=== PATIENT | male | born 1965 | race Caucasian/White ===

== ENCOUNTER 2019-07-16 10:40 | Outpatient (RCR) | payer SELFPAY | END 2019-07-17 00:01 | LOC: WOUND 10:40 | PROVIDERS: Family Provider Nurse Practitioner Family; Visit Provider Nurse Practitioner Family | DX: E11.621 Type 2 diabetes mellitus with foot ulcer (principal); L97.512 Non-pressure chronic ulcer of other part of right foot with fat layer exposed; I96 Gangrene, not elsewhere classified | CPT/HCPCS: 11042 ×2; 93922; G0463 ==

== ENCOUNTER 2019-08-15 13:39 | Outpatient (RCR) | payer SELFPAY | END 2019-08-17 23:59 | disposition home or self-care (01) | LOC: WOUND 13:39 | PROVIDERS: Family Provider Nurse Practitioner Family; PCP Nurse Practitioner Family; Visit Provider Nurse Practitioner Family | DX: E11.621 Type 2 diabetes mellitus with foot ulcer (principal); L97.502 Non-pressure chronic ulcer of other part of unspecified foot with fat layer exposed | CPT/HCPCS: 11042; 29581; 99214 ==

== ENCOUNTER 2019-08-20 08:04 | Outpatient (RCR) | payer SELFPAY | END 2019-09-15 23:59 | disposition home or self-care (01) | LOC: WOUND 08:04 | PROVIDERS: Family Provider Nurse Practitioner Family; PCP Nurse Practitioner Family; Visit Provider Nurse Practitioner Family | DX: Z09 Encounter for follow-up examination after completed treatment for conditions other than malignant neoplasm (principal) | CPT/HCPCS: 99212 ==

== ENCOUNTER 2019-08-20 08:51 | Outpatient (CLI) | payer SELFPAY ==
--- NOTE | 2019-08-20 08:56 | XRR_ITS ---
PROCEDURE INFORMATION: Exam: XR Right Foot Complete Exam date and time: 08/20/2019 9:08 AM Age: 54 years old Clinical indication: Pain and injury or trauma; Fall; Initial encounter; Blunt trauma; Foot; Injury date: 08/20/19; Injury details: Fell 1 week ago hurt right ankle; Prior surgery; Surgery date: 6+ months; Surgery type: 2nd toe amputation diabetic; Additional info: Pain/post trauma TECHNIQUE: Imaging protocol: XR Right foot. Views: 3 or more views. COMPARISON: CR Foot 3 views, RIGHT* [id number] 02/16/2019 7:01 AM FINDINGS: Bones/joints: Resection of the second ray at the level of the proximal metatarsal. Periosteal response adjacent to the proximal aspect of the proximal phalanx of the third ray and the distal aspect of the metatarsal likely reflective of prior trauma. dislocation at the talonavicular joint. fracture of the adjacent talus and navicular. Correlate. large spur formation at the insertion of the plantar aponeurosis. Soft tissues: Extensive soft tissue swelling of the foot particularly dorsally at the level of the metatarsals. XR/XR foot RT min 3V* [id number] IMPRESSION: 1. Dislocation at the talonavicular joint. fracture of the adjacent talus and navicular. Correlate. Consider CT if indicated. 2. Extensive soft tissue swelling of the foot particularly dorsally at the level of the metatarsals. 3. Large spur formation at the insertion of the plantar aponeurosis.
== END 2019-08-20 08:52 | disposition home or self-care (01) ==
PROVIDERS: Family Provider Nurse Practitioner Family; PCP Nurse Practitioner Family; Visit Provider Nurse Practitioner Family
DX: S92.101A Unspecified fracture of right talus, initial encounter for closed fracture (principal); S92.251A Displaced fracture of navicular [scaphoid] of right foot, initial encounter for closed fracture; X58.XXXA Exposure to other specified factors, initial encounter
CPT/HCPCS: 73630

== ENCOUNTER → 2019-08-28 14:41 | Outpatient (BNVA) | payer BC, SELFPAY | PROVIDERS: Family Provider Nurse Practitioner Family; PCP Nurse Practitioner Family; Referring Provider Nurse Practitioner Family; Visit Provider Podiatrist Foot & Ankle Surgery | DX: S92.331G Displaced fracture of third metatarsal bone, right foot, subsequent encounter for fracture with delayed healing (principal); X58.XXXD Exposure to other specified factors, subsequent encounter; Z89.421 Acquired absence of other right toe(s); M79.9 Soft tissue disorder, unspecified; M25.571 Pain in right ankle and joints of right foot; M19.071 Primary osteoarthritis, right ankle and foot; E11.8 Type 2 diabetes mellitus with unspecified complications | CPT/HCPCS: 73610; 73630 ==

== ENCOUNTER 2019-08-28 16:06 | Outpatient (CLI) | payer BC, SELFPAY | END 2019-08-28 16:07 | disposition home or self-care (01) | LOC: SPT 16:07 | PROVIDERS: Family Provider Nurse Practitioner Family; PCP Nurse Practitioner Family; Visit Provider Podiatrist Foot & Ankle Surgery | DX: Z46.89 Encounter for fitting and adjustment of other specified devices (principal) | CPT/HCPCS: L4361 ==

== ENCOUNTER 2019-08-30 13:58 | Outpatient (CLI) | payer BC, SELFPAY ==
--- NOTE | 2019-08-30 | CTR_ITS ---
[facility] Final Radiology Report Call: [phone] assistance Online chat: [email or web address] Name: NAWAF DE LA CRUZ Age: 54Years M Date: 08/30/2019 SSN: -- : 1965 Study: CT EXTREMITY LOWER WO Requesting Physician: Uzair Tao Images: [id number] Add?l Studies: Provided Clinical History: fracture Procedure Accession CTDI Vol (mGy) DLP (mGy-cm) CT EXTREMITY LOWER WO [id number] 305.84 PROCEDURE INFORMATION: Exam: CT Right Lower Extremity Without Contrast, Foot Exam date and time: 08/30/2019 3:24 PM Age: 54 years old Clinical indication: Pain; Foot; Right; Prior surgery; Surgery type: 2nd toe; Patient HX: Physician requested 3d reconstruction to evaluate for FX. R/O talonavicular joint dislocation; Additional info: Fracture TECHNIQUE: Imaging protocol: CT of the Right lower extremity without contrast was performed. Exam focused on the foot. 3D rendering: MIP and/or 3D reconstructed images were created by the technologist. Total DLP: 305.84 mGy-cm Radiation optimization: All CT scans at this facility use at least one of these dose optimization techniques: automated exposure control; mA and/or kV adjustment per patient size (includes targeted exams where dose is matched to clinical indication); or iterative reconstruction. COMPARISON: CR XR foot RT min 3V* [id number] 08/28/2019 3:12 PM FINDINGS: Bones/joints: The 2nd toe has been amputated at the level of the proximal metatarsal. Old healed fractures in the distal 3rd and 4th metatarsals and proximal 3rd phalanx. Degenerative changes and subchondral cyst formation in the head of the 4th metatarsal. Degenerative changes with subchondral cyst formation in the bases of the metatarsals and within the tarsal bones. Comminuted fracture of the navicular with multiple inferior displaced fragments. Soft tissues: Diffuse subcutaneous soft tissue edema of the right ankle and foot, greatest anteriorly. Soft tissue calcifications within the tendons distal muscles of the anterior and posterior ankle. There is an irregular fluid collection with a peripheral rind in calcifications anterior 0 lateral to the talus measuring 2.1 x 4.2 x 1.8 cm. IMPRESSION: 1. Extensive edema and cellulitis of the right ankle and foot. 2. 4.2 cm chronic fluid collection anterior lateral to the talus has a peripheral rind with calcifications. A chronic abscess is not excluded. 3. Comminution and fragmentation of the talus with displaced fragments. This is most likely related to a Charcot joint. Superimposed osteomyelitis cannot be excluded. 4. Severe degenerative changes of the tarsal bones and bases of the metatarsals. Superimposed infection cannot be excluded. 5. Old healed 3rd and 4th metatarsal and proximal 3rd phalanx fractures. Thank you for allowing us to participate in the care of your patient. Dictated and Authenticated by: Ross Coronado MD 08/30/2019 5:11 PM Central Time ([place] & [place]) [place]
--- NOTE | 2019-08-30 | CTR_ITS ---
[facility] Final Radiology Report Call: [phone] assistance Online chat: [email or web address] Name: NAWAF DE LA CRUZ Age: 54Years M Date: 08/30/2019 SSN: -- : 1965 Study: CT EXTREMITY LOWER WO Requesting Physician: Uzair Tao Images: [id number] Add?l Studies: Provided Clinical History: fracture Procedure Accession CTDI Vol (mGy) DLP (mGy-cm) CT EXTREMITY LOWER WO [id number] 305.84 PROCEDURE INFORMATION: Exam: CT Right Lower Extremity Without Contrast, Foot Exam date and time: 08/30/2019 3:24 PM Age: 54 years old Clinical indication: Pain; Foot; Right; Prior surgery; Surgery type: 2nd toe; Patient HX: Physician requested 3d reconstruction to evaluate for FX. R/O talonavicular joint dislocation; Additional info: Fracture TECHNIQUE: Imaging protocol: CT of the Right lower extremity without contrast was performed. Exam focused on the foot. 3D rendering: MIP and/or 3D reconstructed images were created by the technologist. Total DLP: 305.84 mGy-cm Radiation optimization: All CT scans at this facility use at least one of these dose optimization techniques: automated exposure control; mA and/or kV adjustment per patient size (includes targeted exams where dose is matched to clinical indication); or iterative reconstruction. COMPARISON: CR XR foot RT min 3V* [id number] 08/28/2019 3:12 PM FINDINGS: Bones/joints: The 2nd toe has been amputated at the level of the proximal metatarsal. Old healed fractures in the distal 3rd and 4th metatarsals and proximal 3rd phalanx. Degenerative changes and subchondral cyst formation in the head of the 4th metatarsal. Degenerative changes with subchondral cyst formation in the bases of the metatarsals and within the tarsal bones. Comminuted fracture of the navicular with multiple inferior displaced fragments. Soft tissues: Diffuse subcutaneous soft tissue edema of the right ankle and foot, greatest anteriorly. Soft tissue calcifications within the tendons distal muscles of the anterior and posterior ankle. There is an irregular fluid collection with a peripheral rind in calcifications anterior 0 lateral to the talus measuring 2.1 x 4.2 x 1.8 cm. IMPRESSION: 1. Extensive edema and cellulitis of the right ankle and foot. 2. 4.2 cm chronic fluid collection anterior lateral to the talus has a peripheral rind with calcifications. A chronic abscess is not excluded. 3. Comminution and fragmentation of the talus with displaced fragments. This is most likely related to a Charcot joint. Superimposed osteomyelitis cannot be excluded. 4. Severe degenerative changes of the tarsal bones and bases of the metatarsals. Superimposed infection cannot be excluded. 5. Old healed 3rd and 4th metatarsal and proximal 3rd phalanx fractures. Thank you for allowing us to participate in the care of your patient. Dictated and Authenticated by: Ross Coronado MD 08/30/2019 5:11 PM Central Time ([place] & [place]) [place]
== END 2019-08-30 13:59 | disposition home or self-care (01) ==
LOC: RAD 14:00
PROVIDERS: Family Provider Nurse Practitioner Family; PCP Nurse Practitioner Family; Visit Provider Podiatrist Foot & Ankle Surgery
DX: L03.115 Cellulitis of right lower limb (principal); M86.8X7 Other osteomyelitis, ankle and foot; M19.071 Primary osteoarthritis, right ankle and foot; M79.671 Pain in right foot; S92.331D Displaced fracture of third metatarsal bone, right foot, subsequent encounter for fracture with routine healing; S92.341D Displaced fracture of fourth metatarsal bone, right foot, subsequent encounter for fracture with routine healing; X58.XXXD Exposure to other specified factors, subsequent encounter
CPT/HCPCS: 73700; 76377

== ENCOUNTER 2019-08-31 07:48 | Day surgery (SDC) | payer BC, SELFPAY ==
[2019-08-30 14:08] VITALS: BMI 39.7
--- NOTE | 2019-08-31 | SCC_ITS ---
Procedure Done: Closed reduction of right talonavicular fracture dislocation 43 seconds of fluoroscopic guidance, for a cumulative dose of 1.28 mGy, was provided to Dr. Tao by the radiology department. C-arm images of the RIGHT foot were saved for the patient's permanent record. [facility]
--- NOTE | 2019-08-31 | XR_ITS ---
WS: [id number] Right foot, C-arm fluoroscopy view lateral, 08/31/2019 Clinical Data: OR PICS Comparison: Right foot x-ray, 08/28/2019 Findings: On the lateral view there is a mesh on the dorsal surface of the foot. This mass extends from the tib ia to the base of the metatarsals. The fragmentation of the talar neck and navicular is again seen. XR/XR foot RT 2V [id number] Impression: Application of surgical mesh and dressing to plantar surface of the foot.
[2019-08-31 08:06] VITALS: BP 129/81; PULSE 78; RESP 16; TEMP 36.7; O2SAT 96
[2019-08-31] MEDS: sodium chloride 0.9% 1,000 ML 30 ML IV (08:13)
[2019-08-31 08:18] LABS: Glucose Point of Care 196 mg/dL (70-110)
--- NOTE | 2019-08-31 08:21 | ANES.PREANE2 ---
Pre-Anesthetic Assessment Pre-Anesthetic Assessment: Height/Weight: Height 1.8 m Weight 129.274 kg Temp Pulse Resp BP Pulse Ox 98.1 F 78 16 129/81 96 08/31/19 08:06 08/31/19 08:06 08/31/19 08:06 08/31/19 08:06 08/31/19 08:06 Preop Diagnosis: Right talonavicular fracture dislocation Proposed Procedure: Operation Date: 08/31/19 09:10 Proposed Procedures p Closed Reduction Right mid Foot Poss ORIF(Right) - Uzair Tao DPM Last intake: Intake Last Liquid Date 08/30/19 Last Liquid Time 21:00 Last Solid Date 08/30/19 Last Solid Time 21:00 Social: Social History: Alcohol and Tobacco (quit 2009) Exam: Pre-Anes Outpt Exam: alert, oriented x 3, clear to auscultation bilaterally and regular rate & rhythm Airway: Submandibular: WNL Cervical ROM: WNL MP: 2 Dentition: Full (upper) History/ROS: No significant history except as noted Pulmonary: Pulmonary: None reported CV/HEM: CV/HEM: HTN : : None reported Hepatic: Hepatic: None reported GI: GI: GERD (occ) Metabolic: Metabolic: DM and Morbid obesity Musc/skel: Musc/skel: OA/DJD Neuropsych: Neuropsych: Neuropathy (feet) Anesthetic Plan: ASA status: 3 Anesthesia: Anesthesia Evaluation and MAC Risk of > 500 ml blood loss (7ml/kg in children): No Meds/Allergies Current Medications: Current Medications Generic Name Dose Route Start Last Admin Trade Name Freq PRN Reason Stop Dose Admin Sodium Chloride 1,000 mls @ 30 ml s/hr 08/31/19 06:30 08/31/19 08:13 Sodium Chloride 0.9% IV 09/01/19 06:29 30 mls/hr .Q24H KANWAL Administration PFSH Anesthesia PFSH: Medical History (Updated 08/28/19 @ 20:41 by Uzair Tao DPM) Diabetes mellitus Hypertension Surgical History (Updated 08/28/19 @ 20:26 by Uzair Tao DPM) H/O foot surgery right foot Hx of cholecystectomy Social History Smoking and tobacco status: never smoked Alcohol intake: never Current occupational status: employed Data Anesthesia Other Labs: Laboratory Results - last 48 hr 08/31/19 08:14 POC Glucose 196 Cardiac Studies: No Data to Display
--- NOTE | 2019-08-31 08:28 | PM.HPUD ---
H&P update H&P Update: DATE OF SURGERY/PROCEDURE: 08/31/19 DATE H&P PERFORMED: 08/28/19 H&P UPDATE INFORMATION: H&P completed within last 30 days, No changes to prior documentation and [place] [facility] [place] indicated PREOP DIAGNOSIS: Right talonavicular fracture dislocation right foot ulcer exposed to fat layer. PLANNED PROCEDURE: Closed reduction right midfoot fracture dislocation with possible open reduction and internal fixation. Wound bed preparation and application of biologic graft right foot. Operation Date: 08/31/19 09:10 Proposed Procedures p Closed Reduction Right mid Foot Poss ORIF(Right) - Uzair Tao DPM Full H&P Medications/Allergies: Current Medications: Current Medications Generic Name Dose Route Start Last Admin Trade Name Freq PRN Reason Stop Dose Admin Sodium Chloride 1,000 mls @ 30 ml s/hr 08/31/19 06:30 08/31/19 08:13 Sodium Chloride 0.9% IV 09/01/19 06:29 30 mls/hr .Q24H KANWAL Administration Perinent History: Medical/Surgical History: Medical History (Updated 08/28/19 @ 20:41 by Uzair Tao DPM) Diabetes mellitus Hypertension Family History: Family History (Updated 08/28/19 @ 14:09 by Barbara Curiel LPN) Family/Other Diabetes Hypertension Denies family history of CAD (coronary artery disease) Clotting disorder Dementia Hyperlipidemia Psychiatric illness Chronic kidney disease (CKD) Suicide Anesthesia complication Bleeding disorder Family history of premature coronary artery disease Lung disease Cancer Stroke Social History: Social History Smoking and tobacco status: never smoked Alcohol intake: never Current occupational status: employed
[2019-08-31 10:10] VITALS: BP 112/67; PULSE 76; RESP 18; TEMP 37.1; O2SAT 95
[2019-08-31 10:39] VITALS: BP 117/75; PULSE 73; RESP 18; O2SAT 94
--- NOTE | 2019-09-04 00:07 | P.OP_ITS ---
Operative Report Date of procedure: September 04, 2019 Pre-op Diagnosis: Right talonavicular fracture dislocation right foot ulcer exposed to fat layer. Post-op diagnosis: same Post-op Findings: Poor bone density right navicular Procedure Done: Closed reduction of right talonavicular fracture dislocation Implants: None Specimens removed/disposition: None Pathology: none sent Surgeon: Uzair Tao D.P.M. Psychology Teacher: Kari Anesthesia: MAC Estimated blood loss (mL): 5 Tourniquet time: 0 IV fluids: None Complications: None Condition: stable Disposition: PACU Brief History: Mr. Galeano is a 54-year-old diabetic male who sustained a twisting injury while helping his daughter move. He continued to ambulate on his right foot following the injury for an additional week and a half. Patient did not experience severe pain secondary to neuropathy. He did experience significant swelling and redness to the lower extremity. His daughter is an RN and was applying compression dressings. X-ray and CT consistent with talonavicular fracture right foot with displacement. Recommended close reduction of talonavicular fracture dislocation right foot. Patient also had a open wounds likely secondary to edema at the dorsum of the right foot. Day of surgery this wound was dramatically improved with 100% granular base and epithelialized margin. Procedure: Under mild sedation the patient was brought to the operating room and placed on the operating table in supine position. A timeout was performed. Anesthesia was then administered by the anesthesia service. Well-padded pneumatic tourniquet was applied to the right calf. This was not inflated or utilized throughout the duration of the procedure. Right lower extremity was then scrubbed, prepped and draped utilizing normal aseptic technique. Attention was directed to the dorsum of the right foot where the previously documented wound showed dramatic improvement in appearance demonstrated a 100% granular base with epithelialized margin did not have bogginess or fluctuance palpation of wound bed. Decision was made to not perform debridement or application of biological substitute as previously planned due to healthy wound appearance and significant improvement in such a small period of time since previous evaluation. Upon gross inspection of the right foot there was no gross obvious deformity or dislocation however CT scan and x-ray concerning for sagittal plane and transverse plane displacement of the talar head on navicular with comminuted fracture of the navicular and possibly portion of the talar head. Distraction of the right foot with anterior traction was performed followed by reduction of talonavicular joint utilizing reverse mechanism of injury started by exaggerating followed by dorsiflexion and eversion. Reduction was challenging. Attempt was made to percutaneously fixate the talonavicular dislocation once reduced utilizing a K wire however upon driving the K wire at the navicular from distal medial to proximal lateral it was noted that the bone density of the right navicular bone was of very poor quality, very little to no resistance upon piercing the cortex, concern for for other damage and fragmentation without solid fixation was necessitating not utilizing the K wire fixation. Foot was held in a reduced position, position was confirmed with fluoroscopy with improvement in the sagittal plane of the talar head appreciated on the lateral view. The K wire site was flushed and closed with a single 4-0 nylon stitch. With the foot held in a reduced position and neutral ankle joint position a well-padded short leg cast was applied to the right lower extremity. Tourniquet was not inflated throughout the duration of the procedure. Patient tolerated procedure well without complication and was transferred to the PACU with vital signs stable and vascular status intact. Following a period of post operative monitoring he will be discharged home and is to remain strict nonweightbearing at this time he is to elevate his right foot while at rest. He will follow-up on Tuesday next week September 05, 2019.
== END 2019-08-31 11:26 | disposition home or self-care (01) ==
PROVIDERS: Family Provider Nurse Practitioner Family; PCP Nurse Practitioner Family; Visit Provider Podiatrist Foot & Ankle Surgery
PROC: (CPT 28445; principal; 2019-08-31 09:10)
DX: S92.101A Unspecified fracture of right talus, initial encounter for closed fracture (principal); X50.1XXA Overexertion from prolonged static or awkward postures, initial encounter; Z82.49 Family history of ischemic heart disease and other diseases of the circulatory system; Z83.3 Family history of diabetes mellitus; I10 Essential (primary) hypertension; K21.9 Gastro-esophageal reflux disease without esophagitis; E66.01 Morbid (severe) obesity due to excess calories; Z68.39 Body mass index [BMI] 39.0-39.9, adult; E11.9 Type 2 diabetes mellitus without complications; Z79.84 Long term (current) use of oral hypoglycemic drugs
CPT/HCPCS: 28445; 12345; 36416; 73620; 76000; 82962; C1713; J0690; J2250; J2704; J3010; J7030

== ENCOUNTER → 2019-09-05 16:10 | Outpatient (BNVA) | payer BC, SELFPAY | PROVIDERS: Family Provider Nurse Practitioner Family; PCP Nurse Practitioner Family; Visit Provider Podiatrist Foot & Ankle Surgery | DX: Z98.890 Other specified postprocedural states (principal); Z89.421 Acquired absence of other right toe(s) | CPT/HCPCS: 73630 ==

== ENCOUNTER → 2019-10-01 14:22 | Outpatient (BNVA) | payer BC, SELFPAY | PROVIDERS: Family Provider Nurse Practitioner Family; PCP Nurse Practitioner Family; Visit Provider Podiatrist Foot & Ankle Surgery | DX: Z98.890 Other specified postprocedural states (principal) | CPT/HCPCS: 73630 ==

== ENCOUNTER → 2019-11-26 08:20 | Outpatient (BNVA) | payer BC, SELFPAY | PROVIDERS: Family Provider Nurse Practitioner Family; PCP Nurse Practitioner Family; Visit Provider Podiatrist Foot & Ankle Surgery | DX: S92.251A Displaced fracture of navicular [scaphoid] of right foot, initial encounter for closed fracture (principal); M14.671 Charcot's joint, right ankle and foot; X58.XXXA Exposure to other specified factors, initial encounter | CPT/HCPCS: 73630 ==

== ENCOUNTER → 2019-12-24 11:43 | Outpatient (BNVA) | payer BC, SELFPAY | PROVIDERS: Family Provider Nurse Practitioner Family; PCP Nurse Practitioner Family; Visit Provider Podiatrist Foot & Ankle Surgery | DX: S99.921A Unspecified injury of right foot, initial encounter (principal); A52.16 Charcot's arthropathy (tabetic); X58.XXXA Exposure to other specified factors, initial encounter | CPT/HCPCS: 73630 ==

== ENCOUNTER → 2020-01-01 14:52 | Outpatient (BNVA) | payer BC, SELFPAY | PROVIDERS: Family Provider Nurse Practitioner Family; PCP Nurse Practitioner Family; Visit Provider Podiatrist Foot & Ankle Surgery | DX: M14.671 Charcot's joint, right ankle and foot (principal); E11.42 Type 2 diabetes mellitus with diabetic polyneuropathy; S98.131A Complete traumatic amputation of one right lesser toe, initial encounter; X58.XXXA Exposure to other specified factors, initial encounter; S92.251A Displaced fracture of navicular [scaphoid] of right foot, initial encounter for closed fracture; S92.101A Unspecified fracture of right talus, initial encounter for closed fracture | CPT/HCPCS: 73630 ==

== ENCOUNTER 2020-01-07 09:58 | Outpatient (CLI) | payer BC, SELFPAY | END 2020-01-07 09:59 | disposition home or self-care (01) | LOC: WOUND 10:02 | PROVIDERS: Family Provider Nurse Practitioner Family; PCP Nurse Practitioner Family; Visit Provider Nurse Practitioner Family | DX: E11.621 Type 2 diabetes mellitus with foot ulcer (principal); L97.512 Non-pressure chronic ulcer of other part of right foot with fat layer exposed | CPT/HCPCS: 11042; L4387 ==

== ENCOUNTER 2020-01-14 11:05 | Outpatient (CLI) | payer BC, SELFPAY | END 2020-01-14 11:06 | disposition home or self-care (01) | LOC: WOUND 11:05 | PROVIDERS: Family Provider Nurse Practitioner Family; PCP Nurse Practitioner Family; Visit Provider Nurse Practitioner Family | DX: E11.621 Type 2 diabetes mellitus with foot ulcer (principal); L97.512 Non-pressure chronic ulcer of other part of right foot with fat layer exposed | CPT/HCPCS: 11042; 11045 ==

== ENCOUNTER 2020-01-21 09:31 | Outpatient (CLI) | payer BC, SELFPAY | END 2020-01-21 09:32 | disposition home or self-care (01) | LOC: WOUND 09:31 | PROVIDERS: Family Provider Nurse Practitioner Family; PCP Nurse Practitioner Family; Visit Provider Surgery | DX: Z51.89 Encounter for other specified aftercare (principal) | CPT/HCPCS: 73630; G0463 ==

== ENCOUNTER 2020-01-28 08:28 | Outpatient (CLI) | payer BC, SELFPAY | END 2020-01-28 08:29 | disposition home or self-care (01) | LOC: WOUND 08:29 | PROVIDERS: Family Provider Nurse Practitioner Family; PCP Nurse Practitioner Family; Visit Provider Emergency Medicine | DX: E11.621 Type 2 diabetes mellitus with foot ulcer (principal); L97.512 Non-pressure chronic ulcer of other part of right foot with fat layer exposed | CPT/HCPCS: 11042; 11045; 87070; 87077; 87176; 87186; 87205 ==

== ENCOUNTER 2020-01-29 07:04 | Outpatient (CLI) | payer BC, SELFPAY ==
--- NOTE | 2020-01-29 07:10 | NM_ITS ---
WS: [id number] NUCLEAR MEDICINE BONE SCAN 3 PHASE Radiopharmaceutical: 25.5 Tc-99m MDP mCi IV Injection site: Left wrist Postinjection imaging delay: 2 hr CLINICAL INFORMATION: PAIN, REDNESS, NON HEALING ULCER COMPARISON: None. FINDINGS: Prior healed fractures distal aspect third and fourth metatarsals. Amputation proximal seco nd metatarsal. Findings of developing Charcot joint on the prior radiographs. Osteopenia. Diffuse sof t tissue edema with cellulitis on the recent radiograph. Bone lesions: Increased blood flow and blood pool and delayed uptake involving the right foot more pr ominent in the hindfoot extending into the proximal midfoot. Small amount of periarticular uptake at the MTP joints. Differential considerations include osteomyelitis versus reflex sympathetic dystrophy .. Kidneys: Normal. Other findings: Degenerative uptake involving the medial joint compartments with knees. Degenerative uptake involving the left sternal clavicular joint. NM/NM bone 3 phase [id number] IMPRESSION: 1. Increased blood flow, blood pool and delayed bony uptake involving the righ t foot worse involving the hindfoot. This extends into the distal tibia and tib iotalar articulation. Additional patchy uptake involving the MTP joints. 2. Differential considerations include osteomyelitis versus possibly reflect s ympathetic dystrophy. Recommend correlation for infection. This can be further evaluated with MRI of the right foot without and with gadolinium enhancement
--- NOTE | 2020-01-29 07:12 | USCV_ITS ---
Jayy Galeano Age: 54 Gender: M : 1965 Exam Date: 01/29/2020 11:23 Ordering Phys: Malorie Borja Technologist: CINTIA MENDEZ [place] [facility] [place] Indication: HISTORY: PROCEDURES: FINDINGS: There is no evidence of bilateral deep vein thrombosis. The posterior tib veins were not evaluated on the rt lower extremity do to patient having bandage on lower leg. No evidence of superficial thrombosis in the bilateral saphenous system. No evidence of reflux was noted in the bilateral deep venous system. No venous reflux noted in the bilateral small saphenous vein. No venous relux noted in the greater saphenous vein in the left lower extremity. In the right lower extremity there is reflux noted in the gsv dist to sfj, gsv prox, gsv mid, gsv dist, and gsv below knee. CONCLUSIONS No evidence of DVT in the above-mentioned identifiable veins. No significant reflux in the deep veins on either side. Significant venous reflux of greater than 500 ms were noted throughout the greater saphenous vein segments on the right side, sparing the saphenofemoral junction. The reflux time was ranging from 1070ms to 2300 ms. The segments were found to be more than 1 cm deep from the surface. No significant venous reflux on the left side Dr Socrates Pardo MD [facility] (Electronically Signed) Final Date: 29 January 2020 18:59 S
== END 2020-01-29 07:05 | disposition home or self-care (01) ==
LOC: NM 07:05
PROVIDERS: PCP Nurse Practitioner Family; Visit Provider Nurse Practitioner Family
DX: R52 Pain, unspecified (principal); L53.9 Erythematous condition, unspecified; L98.499 Non-pressure chronic ulcer of skin of other sites with unspecified severity
CPT/HCPCS: 78315; 93970; A9561

== ENCOUNTER 2020-01-31 10:28 | Outpatient (CLI) | payer BC, SELFPAY ==
--- NOTE | 2020-01-31 10:33 | USCV_ITS ---
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 Normal resting FLORENCE on the left side. Normal resting TBIs bilaterally PVR waveforms showing loss of dicrotic notch CONCLUSIONS Features suggestive of mild peripheral artery disease bilaterally. Dr Socrates Pardo MD [facility] (Electronically Signed) Final Date: 01 February 2020 09:44 S
== END 2020-01-31 10:29 | disposition home or self-care (01) ==
LOC: US 10:29
PROVIDERS: PCP Nurse Practitioner Family; Visit Provider Nurse Practitioner Family
DX: M79.605 Pain in left leg (principal); M79.604 Pain in right leg; L53.9 Erythematous condition, unspecified; L97.929 Non-pressure chronic ulcer of unspecified part of left lower leg with unspecified severity; L97.919 Non-pressure chronic ulcer of unspecified part of right lower leg with unspecified severity
CPT/HCPCS: 93923

== ENCOUNTER 2020-01-31 10:59 | Outpatient (CLI) | payer BC, SELFPAY | END 2020-01-31 11:00 | disposition home or self-care (01) | LOC: WOUND 11:00 | PROVIDERS: PCP Nurse Practitioner Family; Visit Provider Emergency Medicine | DX: E11.621 Type 2 diabetes mellitus with foot ulcer (principal); L97.512 Non-pressure chronic ulcer of other part of right foot with fat layer exposed ==

== ENCOUNTER → 2020-02-05 08:54 | Day surgery (SDC) | payer BC, SELFPAY ==
--- NOTE | 2020-02-05 09:22 | XR_ITS ---
WS: [id number] PORTABLE CHEST HISTORY: picc placement COMPARISON: 02/13/2019 RIGHT PICC line has been inserted with tip in the mid SVC. No complications. Visualized lungs are clear. No pleural effusion or pneumothorax. Cardiac size: Normal. Mediastinum/Aorta: Normal mediastinum. No osseous abnormality seen. XR/XR chest 1V portable [id number] IMPRESSION: RIGHT PICC line with tip in the mid SVC.
[2020-02-05] MEDS: cefTRIAXone 2,000 MG in sodium chloride 0.9% (plus) 50 ML 100 MG IV (10:08)
[2020-02-05 10:22] VITALS: BP 131/72; PULSE 70; RESP 18; TEMP 36.8; O2SAT 98
== END ==
PROVIDERS: PCP Nurse Practitioner Family; Visit Provider Emergency Medicine
DX: M86.8X7 Other osteomyelitis, ankle and foot (principal)
CPT/HCPCS: 36569; 71045; 96365; J0696; J1642

== ENCOUNTER 2020-02-08 10:53 | Outpatient (CLI) | payer BC, SELFPAY | END 2020-02-08 10:54 | disposition home or self-care (01) | LOC: WOUND 10:54 | PROVIDERS: PCP Nurse Practitioner Family; Visit Provider Surgery | DX: E11.621 Type 2 diabetes mellitus with foot ulcer (principal); L97.512 Non-pressure chronic ulcer of other part of right foot with fat layer exposed | CPT/HCPCS: 11042; 97597 ==

== ENCOUNTER 2020-02-11 09:30 | Outpatient (CLI) | payer BC, SELFPAY | END 2020-02-11 09:31 | disposition home or self-care (01) | LOC: WOUND 09:32 | PROVIDERS: PCP Nurse Practitioner Family; Visit Provider Emergency Medicine | DX: E11.621 Type 2 diabetes mellitus with foot ulcer (principal); L97.512 Non-pressure chronic ulcer of other part of right foot with fat layer exposed ==

== ENCOUNTER → 2020-02-15 08:20 | Outpatient (BNVA) | payer BC, SELFPAY | PROVIDERS: PCP Nurse Practitioner Family; Visit Provider Podiatrist Foot & Ankle Surgery | DX: M14.671 Charcot's joint, right ankle and foot (principal); S92.251G Displaced fracture of navicular [scaphoid] of right foot, subsequent encounter for fracture with delayed healing; S92.101G Unspecified fracture of right talus, subsequent encounter for fracture with delayed healing; E11.42 Type 2 diabetes mellitus with diabetic polyneuropathy; Z89.421 Acquired absence of other right toe(s) | CPT/HCPCS: 73630 ==

== ENCOUNTER 2020-02-18 09:34 | Outpatient (CLI) | payer BC, SELFPAY | END 2020-02-18 09:35 | disposition home or self-care (01) | LOC: WOUND 09:35 | PROVIDERS: PCP Nurse Practitioner Family; Visit Provider Nurse Practitioner Family | DX: E11.621 Type 2 diabetes mellitus with foot ulcer (principal); L97.512 Non-pressure chronic ulcer of other part of right foot with fat layer exposed | CPT/HCPCS: 11042 ==

== ENCOUNTER 2020-02-25 09:31 | Outpatient (CLI) | payer BC, SELFPAY | END 2020-02-25 09:32 | disposition home or self-care (01) | LOC: WOUND 09:31 | PROVIDERS: PCP Nurse Practitioner Family; Visit Provider Emergency Medicine | DX: E11.621 Type 2 diabetes mellitus with foot ulcer (principal); L97.512 Non-pressure chronic ulcer of other part of right foot with fat layer exposed | CPT/HCPCS: 11042 ==

== ENCOUNTER 2020-03-03 13:41 | Outpatient (CLI) | payer BC, SELFPAY | END 2020-03-03 13:42 | disposition home or self-care (01) | LOC: WOUND 13:43 | PROVIDERS: PCP Nurse Practitioner Family; Visit Provider Emergency Medicine | DX: E11.621 Type 2 diabetes mellitus with foot ulcer (principal); L97.512 Non-pressure chronic ulcer of other part of right foot with fat layer exposed | CPT/HCPCS: 11042 ==

== ENCOUNTER → 2020-03-06 14:43 | Outpatient (BNVA) | payer BC, SELFPAY | PROVIDERS: PCP Nurse Practitioner Family; Visit Provider Podiatrist Foot & Ankle Surgery | DX: M14.671 Charcot's joint, right ankle and foot (principal); S92.251G Displaced fracture of navicular [scaphoid] of right foot, subsequent encounter for fracture with delayed healing; E11.42 Type 2 diabetes mellitus with diabetic polyneuropathy; Z98.890 Other specified postprocedural states | CPT/HCPCS: 73630 ==

== ENCOUNTER 2020-03-10 13:50 | Outpatient (CLI) | payer BC, SELFPAY | END 2020-03-10 13:51 | disposition home or self-care (01) | LOC: WOUND 13:50 | PROVIDERS: PCP Nurse Practitioner Family; Visit Provider Emergency Medicine | DX: E11.621 Type 2 diabetes mellitus with foot ulcer (principal); L97.512 Non-pressure chronic ulcer of other part of right foot with fat layer exposed | CPT/HCPCS: 11042 ==

== ENCOUNTER 2020-03-17 14:00 | Outpatient (CLI) | payer BC, SELFPAY | END 2020-03-17 14:01 | disposition home or self-care (01) | LOC: WOUND 14:01 | PROVIDERS: PCP Nurse Practitioner Family; Visit Provider Emergency Medicine | DX: E11.621 Type 2 diabetes mellitus with foot ulcer (principal); L97.512 Non-pressure chronic ulcer of other part of right foot with fat layer exposed | CPT/HCPCS: 11042 ==

== ENCOUNTER 2020-03-31 13:41 | Outpatient (CLI) | payer BC, SELFPAY ==
--- NOTE | 2020-03-31 15:19 | XR_ITS ---
WS: [id number] EXAM: RIGHT ANKLE: 3 VIEW DATE OF EXAMINATION: 03/31/2020, 1549 hours COMPARISON: Foot films from 03/06/2020. HISTORY: Patient is 54 years old with nonhealing ulcers. Pain and redness. FINDINGS: There is generalized soft tissue edema in the lower leg, ankle and hindfoot region suggesting celluli tis. The ankle mortise appears to be gaps superiorly and laterally. Suggesting possible ligamentous d isruption or instability. Multiple bony fragments are seen below the fibula as well as the medial mal leolus. There is extensive dissociation of the subtalar joint as well as the hindfoot/midfoot articul ations suggesting advanced osteoarthropathy. Multiple bony fragments are seen dorsally to the ankle a s well as superior to the calcaneus. Heel spur plantar aponeurosis insertion. Periosteal reaction is seen along the fibula. Presumably related to at least periostitis changes. Osteomyelitis would be dif ficult to completely exclude. XR/XR ankle RT min 3V* [id number] IMPRESSION: Extensive soft tissue edema suggesting cellulitis. Fairly severe dissociation of the subtalar joint as well as the hindfoot/midfoo t articulations suggesting advanced Charcot osteoarthropathy. Gapping of the an kle mortise superior laterally suggesting ligamentous instability.
--- NOTE | 2020-03-31 15:19 | XR_ITS ---
WS: [id number] EXAM: RIGHT FOOT: 3 VIEWS DATE OF EXAMINATION: 03/31/2020, 1545 hours COMPARISON: Right foot examination from 03/06/2020 HISTORY: 54 years old with pain and redness. Nonhealing ulcers. Prior second toe amputation. FINDINGS: Again demonstrated is absence of the majority of the second metatarsal bone and second toe. Old fract ure deformity involving the third metatarsal neck and proximal phalanx of the third toe similar. Arth ritis at the first metatarsal phalangeal joint and also at the third and fourth metatarsal phalangeal joints. There is extensive dissociation of the hindfoot and midfoot articulation suggesting Charcot osteoarthropathy. The degree of dissociation has progressed in the interim. Multiple bony fragments a re seen behind the ankle joint and superior to the calcaneus. Heel spur plantar aponeurosis insertion . Generalized soft tissue edema in the lower leg and foot demonstrated. No foreign body in the soft t issue seen. With this degree of destructive change osteomyelitis would be difficult to exclude. XR/XR foot RT min 3V* [id number] IMPRESSION: Extensive destruction of the hindfoot and midfoot articulations suggesting adva nced Charcot osteoarthropathy. Generalized soft tissue edema suggesting celluli tis. No extensive progressive destruction of bones however there is increasing dissociation of the articulations. Not convinced of florid osteomyelitis but wi th this degree of destruction definitely osteomyelitis would be difficult to co mpletely exclude.
== END 2020-03-31 13:42 | disposition home or self-care (01) ==
LOC: WOUND 13:42
PROVIDERS: PCP Nurse Practitioner Family; Visit Provider Emergency Medicine
DX: E11.621 Type 2 diabetes mellitus with foot ulcer (principal); L97.512 Non-pressure chronic ulcer of other part of right foot with fat layer exposed; M79.671 Pain in right foot
CPT/HCPCS: 11042; 73610; 73630

== ENCOUNTER 2020-04-07 11:00 | Outpatient (CLI) | payer BC, SELFPAY | END 2020-04-07 11:01 | disposition home or self-care (01) | LOC: WOUND 11:01 | PROVIDERS: PCP Nurse Practitioner Family; Visit Provider Nurse Practitioner Family | DX: E11.621 Type 2 diabetes mellitus with foot ulcer (principal); L97.512 Non-pressure chronic ulcer of other part of right foot with fat layer exposed | CPT/HCPCS: 11042 ==

== ENCOUNTER → 2020-04-21 10:30 | Outpatient (BNVA) | payer BC, SELFPAY | PROVIDERS: PCP Nurse Practitioner Family; Visit Provider Podiatrist Foot & Ankle Surgery | DX: M14.671 Charcot's joint, right ankle and foot (principal); S92.251G Displaced fracture of navicular [scaphoid] of right foot, subsequent encounter for fracture with delayed healing; S92.101G Unspecified fracture of right talus, subsequent encounter for fracture with delayed healing; E11.42 Type 2 diabetes mellitus with diabetic polyneuropathy; X50.1XXD Overexertion from prolonged static or awkward postures, subsequent encounter | CPT/HCPCS: 73630 ==

== ENCOUNTER 2020-04-28 14:39 | Outpatient (CLI) | payer BC, SELFPAY | END 2020-04-28 14:40 | disposition home or self-care (01) | LOC: WOUND 14:39 | PROVIDERS: PCP Nurse Practitioner Family; Visit Provider Nurse Practitioner Family | DX: E11.621 Type 2 diabetes mellitus with foot ulcer (principal); L97.511 Non-pressure chronic ulcer of other part of right foot limited to breakdown of skin; E11.622 Type 2 diabetes mellitus with other skin ulcer; L97.312 Non-pressure chronic ulcer of right ankle with fat layer exposed | CPT/HCPCS: 11042; 11045 ==

== ENCOUNTER 2020-05-05 10:55 | Outpatient (CLI) | payer BC, SELFPAY | END 2020-05-05 10:56 | disposition home or self-care (01) | LOC: WOUND 10:56 | PROVIDERS: PCP Nurse Practitioner Family; Visit Provider Nurse Practitioner Family | DX: E11.622 Type 2 diabetes mellitus with other skin ulcer (principal); L97.312 Non-pressure chronic ulcer of right ankle with fat layer exposed | CPT/HCPCS: 11042; 11045; L4631 ==

== ENCOUNTER 2020-05-12 11:24 | Outpatient (CLI) | payer OTHER, SELFPAY | END 2020-05-12 11:25 | disposition home or self-care (01) | LOC: RAD 02-27 15:30 | PROVIDERS: PCP Nurse Practitioner Family; Visit Provider Podiatrist Foot & Ankle Surgery | DX: M14.671 Charcot's joint, right ankle and foot (principal); S93.04XA Dislocation of right ankle joint, initial encounter; X58.XXXA Exposure to other specified factors, initial encounter; M25.471 Effusion, right ankle | CPT/HCPCS: 73610; 73630 ==

== ENCOUNTER 2020-05-19 10:23 | Outpatient (CLI) | payer BC, SELFPAY | END 2020-05-19 10:24 | disposition home or self-care (01) | LOC: WOUND 10:24 | PROVIDERS: PCP Nurse Practitioner Family; Visit Provider Nurse Practitioner Family | DX: E11.622 Type 2 diabetes mellitus with other skin ulcer (principal); L97.312 Non-pressure chronic ulcer of right ankle with fat layer exposed | CPT/HCPCS: 11042; 11045 ==

== ENCOUNTER 2020-05-26 10:30 | Outpatient (CLI) | payer BC, SELFPAY | END 2020-05-26 10:31 | disposition home or self-care (01) | LOC: WOUND 10:30 | PROVIDERS: PCP Nurse Practitioner Family; Visit Provider Nurse Practitioner Family | DX: E11.622 Type 2 diabetes mellitus with other skin ulcer (principal); L97.312 Non-pressure chronic ulcer of right ankle with fat layer exposed | CPT/HCPCS: 99212 ==

== ENCOUNTER → 2020-05-30 14:12 | Outpatient (BNVA) | payer BC, SELFPAY | PROVIDERS: PCP Nurse Practitioner Family; Visit Provider Orthopaedic Surgery | DX: Z11.59 Encounter for screening for other viral diseases (principal); M47.816 Spondylosis without myelopathy or radiculopathy, lumbar region | CPT/HCPCS: 87635 ==

== ENCOUNTER 2020-06-02 14:58 | Inpatient (IN) | payer BC, SELFPAY ==
[2020-05-29 13:43] VITALS: BMI 41.8
[2020-06-02] VITALS (15 sets, daily range): BP systolic 121–160; BP diastolic 71–98; PULSE 74–87; RESP 14–18; TEMP 36.2–36.8; O2SAT 91–100
[2020-06-02] MEDS: sodium chloride 0.9% 1,000 ML 30 ML IV (11:46)
--- NOTE | 2020-06-02 11:50 | ANES.PREANE2 ---
Pre-Anesthetic Assessment Pre-Anesthetic Assessment: Height/Weight: Height 1.8 m Weight 136.078 kg Temp Pulse Resp BP Pulse Ox 98.1 F 75 16 147/98 99 06/02/20 11:10 06/02/20 11:10 06/02/20 11:10 06/02/20 11:10 06/02/20 11:10 Preop Diagnosis: Right talonavicular fracture dislocation right foot ulcer exposed to fat layer. Proposed Procedure: Operation Date: 06/02/20 10:20 Proposed Procedures p Below Knee Amputation 00608 L97.909 E11.42(Right) - Doyle Reyes DO Familial anesthetic complications: None Was Beta Jamie taken within 24 hours: N/A Last intake: Intake Last Liquid Date 06/02/20 Last Liquid Time 07:00 Last Solid Date 06/01/20 Last Solid Time 17:00 Social: Social History: No alcohol and No tobacco Comment: former smoker Exam: Pre-Anes Outpt Exam: alert, oriented x 3, clear to auscultation bilaterally and regular rate & rhythm Airway: Cervical ROM: WNL MP: 3 Dentition: False CV/HEM: CV/HEM: HTN GI: GI: GERD Metabolic: Metabolic: DM Neuropsych: Neuropsych: Neuropathy Anesthetic Plan: ASA status: 2 Anesthesia: General and Regional (specify below) Risk of > 500 ml blood loss (7ml/kg in children): No Meds/Allergies Current Medications: Current Medications Generic Name Dose Route Start Last Admin Trade Name Freq PRN Reason Stop Dose Admin Sodium Chloride 1,000 mls @ 30 ml s/hr 06/02/20 11:15 06/02/20 11:46 Sodium Chloride 0.9% IV 06/03/20 11:14 30 mls/hr .Q24H KANWAL Administration PFSH Anesthesia PFSH: Medical History Diabetes mellitus Hypertension Venous ulcer Surgical History H/O foot surgery right foot Hx of cholecystectomy Family History Family/Other Diabetes Hypertension Denies family history of CAD (coronary artery disease) Clotting disorder Dementia Hyperlipidemia Psychiatric illness Chronic kidney disease (CKD) Suicide Anesthesia complication Bleeding disorder Family history of premature coronary artery disease Lung disease Cancer Stroke Social History Smoking and tobacco status: former smoker Alcohol intake: never Current occupational status: employed Data Anesthesia Cardiac Studies: No Data to Display
[2020-06-02 11:55] LABS: Glucose Point of Care 127 mg/dL (70-110)
[2020-06-02] MEDS: midazolam 1 mg/mL INJ 2 mL 2 MG IVP (12:20)
--- NOTE | 2020-06-02 12:31 | SUR.OPER ---
Nerve block performed by Ja on right upper leg. Pt on monitor and O2. IV versed given. Pt tolerated procedure well. ventilating well.
--- NOTE | 2020-06-02 12:33 | ANES.PROC ---
Anesthesia Procedures Procedure/Date: 06/02/20 Nerve Block ^: Nerve Block 1: Main Anesthesia: general anesthesia Time Out Performed: Yes Consent: requested by attending/covering physician, from patient, from other, risks and benefits reviewed and patient agrees to proceed Nerve block location: popliteal (R) Anesthesia monitors applied: pulse oximetry, EKG, BP cuff and oxygen Nerve block position: supine Anesthetic Used: ropivicaine 0.5% (30 ml) and with decadron (4 mg) Amount of anesthesia used (mL): 30 Ultrasound used to: recognize landmarks Nerve Stimulator Used?: No Interscalene/Femoral BLK: 4 stimuplex 21 g needle used for position and inplane approach, other needle, visualize local anesthetic spread and no vascular puncture identified Injection: neg aspiration of heme Patient Tolerated Procedure: well and no complications Complications: none Nerve Block 2: Main Anesthesia: general anesthesia Time Out Performed: Yes Consent: requested by attending/covering physician, from patient, from other, risks and benefits reviewed and patient agrees to proceed Nerve block location: adductor canal (R) Anesthesia monitors applied: pulse oximetry, EKG, BP cuff and oxygen Nerve block position: supine Anesthetic Used: ropivicaine 0.5% and with decadron (1 mg) Amount of anesthesia used (mL): 10 Ultrasound used to: recognize landmarks and visualize and ID femerol nerve Nerve Stimulator Used?: No Interscalene/Femoral BLK: 4 stimuplex 21 g needle used for position and inplane approach, other needle, visualize local anesthetic spread and no vascular puncture identified Injection: neg aspiration of heme and paresthesia +/- Patient Tolerated Procedure: well Complications: none
[2020-06-02] MEDS: gabapentin 300 mg Capsule PO ×3 (12:38→20:24)
--- NOTE | 2020-06-02 13:18 | W.PM.OPSUD ---
Surgery/Procedure H&P Update DATE OF PROCEDURE: June 02, 2020 DATE H&P PERFORMED: 05/20/20 H&P UPDATE INFORMATION: I have reviewed H&P completed within last 30 days, I have examined patient prior to procedure and No changes to prior documentation PREOP DIAGNOSIS: Right talonavicular fracture dislocation right foot ulcer exposed to fat layer. PLANNED PROCEDURE: Operation Date: 06/02/20 10:20 Proposed Procedures p Below Knee Amputation 99578 L97.909 E11.42(Right) - Doyle Reyes DO
--- NOTE | 2020-06-02 15:12 | PM.OP ---
Operative Report Date of procedure: June 02, 2020 Pre-op Diagnosis: diabetic foot ulcers Post-op diagnosis: same Procedure Done: Right Below knee amputation Anesthesia: General Estimated blood loss (mL): 50 Condition: stable Disposition: PACU Procedure: Patient was brought to the operative suite placed in the supine position. All areas of impingement were well-padded patient's prepped and draped normal sterile fashion. Skin incision is made approximately 14 cm distal to the joint line. The posterior flap was made longer than the anterior flap. Dissection was made through the anterior compartment tibia and fibula were cut using a saw. Posterior tib artery and nerve were identified and tagged and cut. Once the posterior flap was made in the vessels were all coagulated or tied off. Then the bone was then beveled using a saw to ensure there is no sharp edges. Gastric soleus flaps were brought up from anterior from posterior to anterior fascia was sutured together and then skin flap and skin were closed with 2-0 Vicryl and nylon suture sterile dressings were applied and patient transferred to the PACU in stable condition.
--- NOTE | 2020-06-02 15:15 | ANE.PACU2 ---
Inpatient post-anesthesia follow up: Airway intact: Yes Vital signs: Temperature 97.7 F Pulse Rate 72 Respiratory Rate 18 Blood Pressure 142/86 Pulse Oximetry 94 Oxygen Delivery Me thod Room Air Oxygen Flow Rate 6 Fraction of Inspir ed Oxygen Hydration adequate: Yes Nausea and vomiting: No Pain level: 2 Mental status: Baseline
--- NOTE | 2020-06-02 15:35 | P.CONIM_ITS ---
Providers/Reason For Consult Consulting Physican/Specialty*: Dr. Kwon, orthopedic surgery Reason for Consult*: Medical management Attending Physician: Doyle Reyes DO Primary Care Provider: MARCOS Chopra History of Present Illness History of Present Illness Jayy Galeano is a 54 year old male just underwent right below-knee amputation and hospitalist team consulted for medical management. Patient reports being diabetic for the last 5 years. He has been struggling with right foot infection eventually leading to toe amputation but unfortunately continued to do poorly requiring below-knee amputation. Reports that approximately 5 months ago he had vascular evaluation and did not require any intervention. He denies any previous history of heart disease or stroke. Reports that he quit smoking 9 years ago. He occasionally drinks alcohol but not daily. He lives with his girlfriend. He thinks that he snores and based on his body habitus likely has obstructive sleep apnea. Reports that he sleeps with a fan on. He never had sleep study performed before. Review of Systems Const: Denies: fever(s) or chills Eyes: Denies: change in vision ENMT: Reports: throat pain (Reports minimal discomfort post surgery.); Denies: change in hearing Card: Denies: chest pain, edema or lightheadedness Resp: Denies: dyspnea or productive cough GI: Denies: abdominal pain, nausea, vomiting, dysphagia, diarrhea, constipation, hematochezia or melena Musc: Reports: joint pain (Left knee, chronic with ambulation likely due to compensation.); Denies: joint swelling Skin/Breast: Denies: rash or erythema Neuro: Denies: headache(s) or weakness in extremities Psych: Denies: depression Endo: Denies: excessive sweating Zev/Lymph: Denies: easy bleeding or tender lymph nodes All/Imm: Denies: throat swelling Meds/Allergies Home Medications and Allergies Home Medications Medication Instructions Recorded Confirmed Last Taken Type atenolol 50 mg tablet 50 mg PO BID 08/28/19 05/29/20 06/02/20 07:00 History lisinopril 40 mg tablet 40 mg PO DAILY 08/28/19 05/29/20 06/01/20 18:00 History nortriptyline 25 mg capsule 25 mg PO DAILY 08/28/19 05/29/20 06/01/20 18:00 History ferrous sulfate, dried 144 mg PO DAILY 08/31/19 05/29/20 06/01/20 07:00 History Cam boot #1 ea 09/05/19 05/20/20 Unknown Rx Pam[place]key Boot #1 ea 10/01/19 05/20/20 Unknown Rx Pam[place]key boot #1 ea 10/23/19 05/20/20 Unknown Rx gabapentin 300 mg capsule 300 mg PO TID #90 cap 12/12/19 05/29/20 06/01/20 18:00 Rx acetaminophen 300 mg-codeine 30 mg 1 tab PO Q4H PRN 7 Days #42 tab 03/28/20 06/02/20 05/18/20 Rx tablet cholecalciferol (vitamin D3) 125 5,000 unit PO DAILY cap 04/01/20 05/29/20 06/01/20 07:00 History mcg (5,000 unit) capsule furosemide 40 mg tablet 40 mg PO BID tab 04/01/20 05/29/20 06/01/20 18:00 History insulin degludec 100 unit/mL (3 160 unit SUBCUT DAILY ml 04/01/20 05/29/20 06/01/20 18:00 History mL) subcutaneous pen pantoprazole 40 mg tablet,delayed 40 mg PO DAILY 04/01/20 05/29/20 06/01/20 18:00 History release potassium chloride 20 mEq 20 meq PO DAILY tab 04/01/20 05/29/20 06/01/20 07:00 History tablet,extended release ibuprofen 800 mg tablet 800 mg PO TID #30 tab 05/12/20 05/29/20 06/01/20 18:00 Rx metformin 500 mg tablet 500 mg PO BID 05/20/20 05/29/20 06/01/20 18:00 History wheelChair #1 ea 05/23/20 Unknown Rx Novolog U-100 Insulin aspart See Rx Instructions .ROUTE .COMPLEX 06/02/20 06/02/20 06/01/20 18:00 History Wheelchair #1 ea 06/02/20 Unknown Rx Allergies Allergy/AdvReac Type Severity Reaction Status Date / Time No Known Allergies Allergy Verified 05/20/20 11:43 PFSH Acute PFSH: Medical History (Updated 06/02/20 @ 15:54 by Meng Arias MD) Diabetes mellitus Hypertension Morbid obesity with BMI of 40.0-44.9, adult Venous ulcer Surgical History H/O foot surgery right foot Hx of cholecystectomy Family History Family/Other Diabetes Hypertension Denies family history of CAD (coronary artery disease) Clotting disorder Dementia Hyperlipidemia Psychiatric illness Chronic kidney disease (CKD) Suicide Anesthesia complication Bleeding disorder Family history of premature coronary artery disease Lung disease Cancer Stroke Social History Smoking and tobacco status: former smoker Alcohol intake: never Current occupational status: employed Vitals/I&O/Wt Last Vital Signs Temp 97.4 F L 06/02/20 15:25 Pulse 78 06/02/20 15:25 Resp 16 06/02/20 15:25 BP 134/83 06/02/20 15:25 Pulse Ox 94 06/02/20 15:25 06/02/20 06/02/20 06/02/20 06:59 14:59 22:59 Intake Total 1050 / 1050 200 / 1250 Output Total 100 / 100 Balance 1050 / 1050 100 / 1150 Physical Exam Const: COMMON NORMALS: no acute distress, patient oriented x3 and alert HENMT: COMMON NORMALS: normocephalic and atraumatic HEAD & SCALP: normocephalic and atraumatic Eye: COMMON NORMALS: EOMs intact bilaterally, conjunctivae normal and no scleral icterus CONJUNCTIVA: Yes conjunctivae normal Neck/C-Spine: COMMON NORMALS: no lymphadenopathy and no meningeal signs Lymph: LYMPHATIC: no lymphadenopathy noted Chest: COMMONS NORMALS: normal palpation of entire chest wall Resp: COMMON NORMALS: No use of accessory muscles and clear to auscultation bilaterally AUSCULTATION: clear to auscultation bilaterally Cardio: COMMON NORMALS: regular rate, regular rhythm and No murmurs present (Cardio) RATE: regular rate RHYTHM: regular rhythm OTHER: No lower extremity edema. Varicose veins noted. Right below-knee amputation stump dressed. GI: COMMON NORMALS: Soft to palpation and non-tender PALPATION: Yes Soft to palpation RECTAL EXAM: Yes deferred : COMMON NORMALS: Yes no CVA tenderness BLADDER/KIDNEY EXAM: Yes no CVA tenderness Back/Pelvis: COMMON NORMALS: no CVA tenderness and thoracic and lumbar spine normal to inspection Extremity: COMMON NORMALS: normal to inspection and capillary refill normal Neuro: COMMON NORMALS: patient oriented x3 and no focal motor deficits SENSORIUM/ORIENTATION: Yes alert MENINGEAL SIGNS: Yes no meningeal signs Psych: COMMON NORMALS: mental status grossly normal, Normal thought process present and cooperative THOUGHT PROCESS: Normal thought process present Skin: COMMON NORMALS: no rashes or lesions noted GENERAL SKIN EXAM: no rashes or lesions noted OTHER: Skin is very dry. A&P Assessment and plan (1) Diabetic infection of right foot: Status post below-knee amputation. Status: Acute (2) Diabetes mellitus: Type II. Status: Acute (3) Morbid obesity with BMI of 40.0-44.9, adult: Status: Acute (4) Obstructive sleep apnea: Based on patient's body habitus and symptoms patient likely has obstructive sleep apnea and will need to have sleep study post discharge. Status: Acute Additional A&P Information PLAN: Patient does appear dry therefore I will discontinue Lasix for now but this can be restarted upon discharge. We will discontinue ibuprofen and discontinue Metformin while patient is hospitalized. Sliding scale insulin while hospitalized and Metformin can be restarted upon discharge if kidney function looks good. Continue Protonix and Lovenox. Continue postoperative antibiotics. I do not think patient will require post discharge antibiotics but will let Dr. Kwon to make that call based on incision/wound healing. Had extensive discussion with patient regarding importance of weight loss as well as sleep study and he will discuss this with his primary care physician post discharge. Will request CBC CMP and hemoglobin A1c and continue with daily CBC and CMP checked. Consult Attestations Medical Necessity Statement: Patient post below-knee amputation requires close inpatient monitoring and treatment. I expect patient will require more than 2 midnights. Time Spent in Patient Care: Greater than 35 minutes Coding Level of Care Code Acute Casing In Line Feeder for [employer] Fwd Diagnoses Diabetic infection of right foot E11.628; L08.9 Diabetes mellitus E11.9 Morbid obesity with BMI of 40.0-44.9, adult E66.01; Z68.41 Obstructive sleep apnea G47.33
[2020-06-02] MEDS: sodium chloride 0.9% 1,000 ML 80 ML IV (16:08)
[2020-06-02 16:35] LABS: Basophils # 0.1 10^3/uL (0.0-0.1); Basophils % 0.5 %; Eosinophils # 0.2 10^3/uL (0.0-0.8); Eosinophils % 1.6 %; Hematocrit 34.9 % (42.0-52.0); Lymphocytes # 1.1 10^3/uL (0.8-4.8); Lymphocytes % 10.3 %; Mean Corpuscular HGB Conc 31.5 g/dL (30.0-36.0); Mean Corpuscular Hemoglobin 24.7 pg (28.0-34.0); Mean Corpuscular Volume 78.3 fL (80-94); Mean Platelet Volume 8.6 fL (7.4-10.4); Monocytes # 0.5 10^3/uL (0.2-0.9); Monocytes % 4.4 %; Neutrophils # 9.15 10^3/uL (1.8-7.7); Neutrophils % 82.7 %; Nucleated Red Blood Cells % 0 %; Platelet Count 309 10^3/cmm (130-400); Red Blood Count 4.46 10^6/uL (4.1-5.3); White Blood Count 11.1 10^3/uL (4.0-10.0)
[2020-06-02 17:03] LABS: Alanine Aminotransferase 16 U/L (0-41); Albumin Level 3.9 g/dL (3.5-5.2); Alkaline Phosphatase 97 IU/L (40-130); Aspartate Amino Transferase 9 U/L (0-40); Blood Urea Nitrogen 12 mg/dL (6-20); Calcium 8.6 mg/dL (8.5-10.5); Carbon Dioxide 27 mmol/L (22-29); Chloride 100 mmol/L (98-107); Globulin 2.4 g/dL (1.3-4.6); Glomerular Filtration Rate 78.2 mL/min (90-130); Glucose 136 mg/dL (65-115); Osmolality Calculated 288 mOsm/kg (285-295); Sodium 138 mmol/L (136-145); Total Bilirubin 0.2 mg/dL (0.15-1.2); Total Protein 6.3 g/dL (6.6-8.7)
--- NOTE | 2020-06-02 17:04 | PC.NURSE ---
Attempted to call [facility] per physician orders answering service will not send me through to [place] or take a message for me informed this nurse to call again tomorrow morning. Information passed to charge nurse Eden Mijares and will pass on to the oncoming nurse.
[2020-06-02 17:10] LABS: Glucose Point of Care 158 mg/dL (70-110)
[2020-06-02 17:15] LABS: Estmated Average Glucose 212
[2020-06-02] MEDS: atenolol 50 mg Tablet PO (17:37)
--- NOTE | 2020-06-02 18:47 | PC.NURSE ---
report given to олег relinquished care of patient.
[2020-06-02] MEDS: nortriptyline 25 mg Capsule PO (20:24)
[2020-06-02 20:40] LABS: Glucose Point of Care 340 mg/dL (70-110)
[2020-06-03] MEDS: enoxaparin 40 mg/0.4 mL Syringe SUBCUT (04:23)
[2020-06-03] MEDS: sodium chloride 0.9% 1,000 ML 80 ML IV ×2 (04:27→19:11)
[2020-06-03 05:13] VITALS: BP 142/86; PULSE 72; RESP 18; TEMP 36.5; O2SAT 94
--- NOTE | 2020-06-03 05:57 | PC.NURSE ---
SHIFT SUMMARY Has done well tonight. Has denied pain in right stump incision throughout shift. Dressing/robert wrap intact to R BKA site. Had small amt sanguinous drainage noted from right lower corner of dressing. IV fluids infusing at 80ml/hr rate. Received postop IV antibiotics X2 doses tonight. SQ Lovenox started this am. Voiding per urinal
[2020-06-03 06:37] LABS: Magnesium 1.8 mg/dL (1.7-2.3)
[2020-06-03 06:46] LABS: Glucose Point of Care 210 mg/dL (70-110)
[2020-06-03 07:33] VITALS: BP 151/93; PULSE 76; RESP 17; TEMP 36.7; O2SAT 97
[2020-06-03] MEDS: atenolol 50 mg Tablet PO ×2 (08:12→17:06)
[2020-06-03] MEDS: cholecalciferol (vitamin D3) 5,000 unit Tablet 5000 UNIT PO (08:13)
[2020-06-03] MEDS: gabapentin 300 mg Capsule PO ×3 (08:13→21:05)
[2020-06-03] MEDS: pantoprazole DR 40 mg Tablet PO (08:13)
[2020-06-03 08:29] LABS: Ferritin 72 ng/mL (30-400); Iron 53 ug/dL (59-158); Percent Saturation 17.6 % (20-50); Total Iron Binding Capacity 300 mcg/dl; Unsaturated Iron Binding 247 ug/dL (112-347)
[2020-06-03 08:45] LABS: Vitamin B12 239 pg/mL (232-1245)
[2020-06-03 08:46] LABS: Folate Level 5.1 ng/mL (4.5-32.2)
--- NOTE | 2020-06-03 09:02 | PC.NURSE ---
[facility] calledand notified patient had surgery yesterday. I spoke to Praveena and let her know patient had a Right BKA.
--- NOTE | 2020-06-03 09:03 | PM.PN ---
Subjective Subjective: Interval history: Patient doing well no complaints this morning pain controlled. Medications: Reviewed: Yes Vitals/I&O/Wt Last Vital Signs Temp 98.0 F 06/03/20 07:33 Pulse 76 06/03/20 07:33 Resp 17 06/03/20 07:33 BP 151/93 06/03/20 07:33 Pulse Ox 97 06/03/20 07:33 06/02/20 06/03/20 06/03/20 22:59 06:59 14:59 Intake Total 555 / 1605 1460.333 / 3065.333 360 / 360 Output Total 100 / 100 500 / 600 400 / 400 Balance 455 / 1505 960.333 / 2465.333 -40 / -40 Physical Exam Narrative: EXAM NARRATIVE: Stump has dressings intact minimal drainage. Data : 06/02/20 16:29 06/02/20 16:29 A&P Additional A&P Information Postop day 1 right BKA. Patient is going to be evaluated by [facility] and no as well as physical therapy once therapy clears the patient he can be discharged. Attestations Medical Necessity Statement*: Gait training with physical therapy. Coding Level of Care Code Acute Bleach Packer for Jean Marshall
--- NOTE | 2020-06-03 09:29 | PC.CHAP ---
Pastoral Care Encounter/Spiritual Assessment Type of Contact [] Declined chief order dispatcher visit [] Patient/Family/Request visit [] Outpatient visit [] Follow-up visit [] Physician referral [] Code/Alert [x] Routine visit [] Staff referral [] Actively dying [] Patient sleeping [] Family support [] [] Out of room [] Palliative care [] [] Receiving care in room [] Pre-surgical visit [] Trauma [] Long length of stay [] ICU visit [] Other: Relational/Emotional Strength [] Patient feels connected with others/family/visitors/staff [] Distress [] Loneliness/isolation [] Abandonment Spirituality of Patient [] Person of Makenna [] Attends Baptism of their Makenna [] Believes in Prayer [] Reads Bible or Synagogue materials [] There are Spiritual issues to be addressed [employer] Interventions [x] Prayer [x] Active listening [x] Non-anxious presence [x] Spiritual/emotional support [] Crisis/trauma care [] Spiritual counseling [] Bereavement support [] Provided bereavement packet [] Provided Bible/devotional materials [] Provided toy/stuffed animal, coloring book to patient or family member [] Provided Communion [] Anointing/[place] [] Salvation [x] Completed spiritual assessment [] Other: Impact on Illness or Injury [] Angry [] Fearful [] Anxious [] Often cries [] Exhaustion [] Unable to work [] Unable to attend roman catholic [] Unable to walk/stand [] Unable to read [] Unable to drive [] Unable to eat/drink [] Unable to sleep [] Unable to be with family [] Patient intubated [] Other: Summary patient feeling strong ready to go home. Time spent with patient 10 min
--- NOTE | 2020-06-03 09:44 | P.PN_ITS ---
Subjective Subjective: Interval history: Patient is doing well. Denies any shortness of breath or chest pain. He shows microcytic anemia with some evidence of iron deficiency. Patient is on oral iron supplements at home. He had couple of colonoscopies before including earlier this year when several polyps were removed. Patient was advised to have repeat colonoscopy in 5 years. Otherwise patient denies any shortness of breath or chest pain this morning. His B12 was checked and it appears that he likely has deficiency. Folic acid also on the lower normal level. Medications: Reviewed: Yes Vitals/I&O/Wt Last Vital Signs Temp 98.0 F 06/03/20 07:33 Pulse 76 06/03/20 07:33 Resp 17 06/03/20 07:33 BP 151/93 06/03/20 07:33 Pulse Ox 97 06/03/20 07:33 06/02/20 06/03/20 06/03/20 22:59 06:59 14:59 Intake Total 555 / 1605 1460.333 / 3065.333 360 / 360 Output Total 100 / 100 500 / 600 400 / 400 Balance 455 / 1505 960.333 / 2465.333 -40 / -40 Physical Exam Const: COMMON NORMALS: no acute distress and patient oriented x3 Resp: COMMON NORMALS: normal respiratory effort and clear to auscultation bilaterally AUSCULTATION: clear to auscultation bilaterally Cardio: COMMON NORMALS: regular rate, regular rhythm and S2 normal heart sound present RATE: regular rate RHYTHM: regular rhythm HEART SOUNDS: S2 normal heart sound present OTHER: No lower extremity edema. Right below-knee amputation stump is dressed GI: COMMON NORMALS: Normal to inspection, nondistended, normoactive bowel sounds present, Soft to palpation and non-tender PALPATION: Yes Soft to palpation Neuro: COMMON NORMALS: patient oriented x3 and no focal motor deficits Data : 06/02/20 16:29 06/02/20 16:29 A&P Assessment and plan (1) Diabetic infection of right foot: Status post below-knee amputation. Status: Acute (2) Diabetes mellitus: Type II. Status: Acute (3) Morbid obesity with BMI of 40.0-44.9, adult: Status: Acute (4) Obstructive sleep apnea: Based on patient's body habitus and symptoms patient likely has obstructive sleep apnea and will need to have sleep study post discharge. Status: Acute (5) Microcytic anemia: With evidence of iron deficiency and possibly B12 deficiency Status: Acute Additional A&P Information PLAN: We will give patient 1 dose of IV Venofer and start patient on B12 injections while he is hospitalized. Restart lisinopril. Since patient's oral intake improves will restart Lasix and potassium. Continue physical and occupational therapy. Attestations Medical Necessity Statement*: Patient post knee surgery requires close inpatient monitoring and treatment until deemed safe for discharge from orthopedic standpoint. Time Spent in Patient Care: 16 - 35 minutes Coding Level of Care Code Acute Bench Machine Operator for g Fwd Exam Detailed Diagnoses Diabetic infection of right foot E11.628; L08.9 Diabetes mellitus E11.9 Morbid obesity with BMI of 40.0-44.9, adult E66.01; Z68.41 Obstructive sleep apnea G47.33 Microcytic anemia D50.9
--- NOTE | 2020-06-03 10:33 | ANE.PACU2 ---
Inpatient post-anesthesia follow up: Airway intact: Yes Vital signs: Temperature 98.0 F Pulse Rate 76 Respiratory Rate 17 Blood Pressure 151/93 Pulse Oximetry 97 Oxygen Delivery Me thod Room Air Oxygen Flow Rate 6 Fraction of Inspir ed Oxygen Hydration adequate: Yes Nausea and vomiting: No Pain level: 3 Mental status: Baseline Additional Comments: block worked well, starting to wear off
[2020-06-03 11:05] LABS: Glucose Point of Care 208 mg/dL (70-110)
[2020-06-03 11:21] VITALS: BP 152/86; PULSE 78; RESP 16; TEMP 36.8; O2SAT 98
[2020-06-03] MEDS: lisinopril 20 mg Tablet 40 MG PO (11:27)
[2020-06-03] MEDS: potassium chloride ER 20 mEq Tablet PO (11:27)
[2020-06-03] MEDS: HYDROcodone-acetaminophen 5-325 mg Tablet PO ×3 (11:27→21:02)
[2020-06-03] MEDS: iron sucrose 200 MG in sodium chloride 0.9% (100 ml) 100 ML 220 MG IV (11:27)
[2020-06-03] MEDS: cyanocobalamin 1,000 mcg/mL SDV 1000 MCG IM (11:27)
[2020-06-03 14:11] VITALS: RESP 18
[2020-06-03] MEDS: morphine 4 mg/mL SDV 1 mL 1 MG IVP (14:11)
[2020-06-03 14:48] VITALS: BP 163/83; PULSE 78; RESP 16; TEMP 36.7; O2SAT 98
[2020-06-03 16:41] LABS: Glucose Point of Care 188 mg/dL (70-110)
[2020-06-03] MEDS: FUROsemide 40 mg Tablet PO (16:53)
[2020-06-03 19:52] VITALS: BP 173/93; PULSE 81; RESP 17; TEMP 36.6; O2SAT 94
[2020-06-03 20:42] LABS: Glucose Point of Care 245 mg/dL (70-110)
[2020-06-03] MEDS: nortriptyline 25 mg Capsule PO (21:02)
[2020-06-04 01:32] VITALS: BP 153/92; PULSE 75; RESP 18; TEMP 36.6; O2SAT 94
[2020-06-04] MEDS: enoxaparin 40 mg/0.4 mL Syringe SUBCUT (02:21)
[2020-06-04] MEDS: HYDROcodone-acetaminophen 5-325 mg Tablet PO ×2 (02:24→08:34)
[2020-06-04 02:53] LABS: Magnesium 1.9 mg/dL (1.7-2.3)
[2020-06-04 04:51] VITALS: BP 165/92; PULSE 75; RESP 18; TEMP 36.4; O2SAT 95
--- NOTE | 2020-06-04 05:45 | PC.NURSE ---
SHIFT SUMMARY Has had a good night.Says had some pretty severe pain with brace on yesterday but minimal pain c/o in right stump tonight. Has taken po Hydrocodone X2 with good relief. Dressing/robert wrap intact with no fresh drainage noted. Voiding large output of urine tonight per urinal.
[2020-06-04 06:30] LABS: Glucose Point of Care 120 mg/dL (70-110)
[2020-06-04 07:27] VITALS: BP 162/83; PULSE 74; RESP 17; TEMP 36.6; O2SAT 95
[2020-06-04] MEDS: lisinopril 20 mg Tablet 40 MG PO (08:35)
[2020-06-04] MEDS: sodium chloride 0.9% 1,000 ML 80 ML IV (08:35)
[2020-06-04] MEDS: cyanocobalamin 1,000 mcg/mL SDV 1000 MCG IM (08:35)
[2020-06-04] MEDS: atenolol 50 mg Tablet PO (08:35)
[2020-06-04] MEDS: gabapentin 300 mg Capsule PO (08:35)
[2020-06-04] MEDS: potassium chloride ER 20 mEq Tablet PO (08:35)
[2020-06-04] MEDS: FUROsemide 40 mg Tablet PO (08:35)
[2020-06-04] MEDS: pantoprazole DR 40 mg Tablet PO (08:35)
[2020-06-04] MEDS: cholecalciferol (vitamin D3) 5,000 unit Tablet 5000 UNIT PO (08:35)
[2020-06-04 10:27] LABS: Glucose Point of Care 200 mg/dL (70-110)
[2020-06-04 11:19] VITALS: BP 146/85; PULSE 76; RESP 18; O2SAT 94
--- NOTE | 2020-06-04 11:43 | PM.PN ---
Subjective Subjective: Interval history: Patient denies any complaints this morning. Denies shortness of breath or chest pain. Denies abdominal pain. Feeling well and is being dismissed today Medications: Reviewed: Yes Vitals/I&O/Wt Last Vital Signs Temp 97.8 F 06/04/20 07:27 Pulse 76 06/04/20 11:19 Resp 18 06/04/20 11:19 BP 146/85 06/04/20 11:19 Pulse Ox 94 06/04/20 11:19 06/03/20 06/04/20 06/04/20 22:59 06:59 14:59 Intake Total 1430 / 1910 360 / 2270 1415 / 1415 Output Total 2400 / 3275 1100 / 4375 Balance -970 / -1365 -740 / -2105 1415 / 1415 Physical Exam Const: COMMON NORMALS: no acute distress and patient oriented x3 Resp: COMMON NORMALS: normal respiratory effort and clear to auscultation bilaterally AUSCULTATION: clear to auscultation bilaterally Cardio: COMMON NORMALS: regular rate, regular rhythm and S2 normal heart sound present RATE: regular rate RHYTHM: regular rhythm HEART SOUNDS: S2 normal heart sound present OTHER: No lower extremity edema. Right below-knee amputation. GI: COMMON NORMALS: Normal to inspection, nondistended, normoactive bowel sounds present, Soft to palpation and non-tender PALPATION: Yes Soft to palpation Neuro: COMMON NORMALS: patient oriented x3 and no focal motor deficits Data : 06/02/20 16:29 06/02/20 16:29 A&P Assessment and plan (1) Diabetic infection of right foot: Status post below-knee amputation. Status: Acute (2) Diabetes mellitus: Type II. Status: Acute (3) Morbid obesity with BMI of 40.0-44.9, adult: Status: Acute (4) Obstructive sleep apnea: Based on patient's body habitus and symptoms patient likely has obstructive sleep apnea and will need to have sleep study post discharge. Status: Acute (5) Microcytic anemia: With evidence of iron deficiency and possibly B12 deficiency Status: Acute Additional A&P Information PLAN: Patient is being dismissed today as per orthopedic service. Patient to continue with B12 and folic acid supplementation and I will change patient's iron therapy to every other day. Again had discussion with patient to discuss with his primary care physician regarding weight loss program and sleep study. Since patient has below-knee amputation and received postoperative antibiotic I do not think any further antibiotic treatment is required at this point. Patient will follow up with orthopedic surgery and primary care physician post discharge. 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
--- NOTE | 2020-06-04 11:58 | PC.NURSE ---
discharge instructions given to patient and patient verbalized understanding of instructions. patient has Lovenox and Pain meds from Meds to Beds and 2 paper scripts (1 folic acid and 1 vitamin b-12)
--- NOTE | 2020-06-04 12:42 | PC.NURSE ---
patient taken to private vehicle via wheelchair by staff.
[2020-06-04 12:43] VITALS: BP 146/85; PULSE 76; RESP 18; TEMP 36.6; O2SAT 94
--- NOTE | 2020-06-06 08:45 | PM.DCS ---
Discharge Providers Date of Admission: 06/02/20 14:59 Date of Discharge: June 06, 2020 Attending Provider at Admission: Doyle Reyes DO Attending Provider at Discharge: Doyle Reyes DO Primary Care Provider: MARCOS Chopra Diagnoses at Discharge Discharge Diagnosis (1) Diabetic infection of right foot: Status: Resolved (2) Diabetes mellitus: Status: Acute (3) Morbid obesity with BMI of 40.0-44.9, adult: Status: Acute (4) Obstructive sleep apnea: Status: Acute (5) Microcytic anemia: Status: Acute Reason for Visit Reason for Visit: right below knee amputation Hospital Course Hospital Course Patient was admitted after his surgery he had a right below-knee amputation. 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 Discharge Data Data Completed and Pending: Pending at discharge Category Date Time Status Pathology: Surgic al [PTH] Routine Pth 06/02/20 15:07 Received Vitals: Last Vital Signs Temp 97.8 F 06/04/20 12:43 Pulse 76 06/04/20 12:43 Resp 18 06/04/20 12:43 BP 146/85 06/04/20 12:43 Pulse Ox 94 06/04/20 12:43 Discharge Plan Discharge Patient Disposition: Home Condition: Stable Prescriptions: New hydrocodone-acetaminophen 5-325 mg Tablet 1 - 2 tab PO Q4H PRN (Reason: Breakthrough Pain) Qty: 40 RF: 0 enoxaparin 40 mg/0.4 mL Syringe 40 mg SUBCUT Q24H Qty: 30 RF: 0 cyanocobalamin (vitamin B-12) 1,000 mcg capsule 1,000 mcg PO DAILY Qty: 30 RF: 0 folic acid 1 mg tablet 1 mg PO DAILY Qty: 30 RF: 0 Continued atenolol 50 mg tablet 50 mg PO BID RF: 0 lisinopril 40 mg tablet 40 mg PO DAILY RF: 0 nortriptyline 25 mg capsule 25 mg PO DAILY RF: 0 Tresiba FlexTouch U-100 100 unit/mL (3 mL) insulin pen 160 unit SUBCUT DAILY RF: 0 potassium chloride 20 mEq tablet extended release 20 meq PO DAILY RF: 0 pantoprazole 40 mg tablet,delayed release (DR/EC) 40 mg PO DAILY RF: 0 furosemide [Lasix] 40 mg tablet 40 mg PO BID RF: 0 cholecalciferol (vitamin D3) 125 mcg (5,000 unit) capsule 5,000 unit PO DAILY RF: 0 (DME) Cam boot Qty: 1 RF: 0 (DME) [place] Boot Qty: 1 RF: 0 ibuprofen 800 mg tablet 800 mg PO TID Qty: 30 RF: 1 metformin 500 mg tablet 500 mg PO BID RF: 0 (DME) [place] boot Qty: 1 RF: 0 gabapentin 300 mg capsule 300 mg PO TID Qty: 90 RF: 0 acetaminophen-codeine 300-30 mg tablet 1 tab PO Q4H PRN (Reason: pain) 7 Days Qty: 42 RF: 0 (DME) wheelChair See Rx Instructions .Route .MEDSUPPLY Qty: 1 RF: 0 (DME) Wheelchair See Rx Instructions .Route .MEDSUPPLY Qty: 1 RF: 0 (DME) Right BK protector See Rx Instructions .Route .MEDSUPPLY Qty: 1 RF: 0 Novolog U-100 Insulin aspart See Rx Instructions .ROUTE .COMPLEX RF: 0 Changed ferrous sulfate, dried 144 mg (45 mg iron) Tablet Extended Release 144 mg PO EVERY OTHER DAY Qty: 0 RF: 0 No Action (DME) Stump Senior Web Developer See Rx Instructions .Route .MEDSUPPLY Qty: 1 RF: 0 Discharge Orders: Discharge Order (Routine); Ordered 06/04/20 Ordered By: Doyle Reyes Referrals: Jennifer Jimenez FNP [Primary Care Provider] - 06/10/20 10:45 am Doyle Reyes DO [Physician] - 06/24/20 10:45 am Discharge Diet: Advance as tolerated and Usual diet Discharge Activity: Limit activity as instructed and Use walker/crutches as instructed Patient Instructions: Hydrocodone/Acetaminophen (By mouth), Enoxaparin (Injection), Below the Knee Amputation (DC) Activity Restrictions/Additional Instructions: f/u in clinic in 3 weeks. call office for appointment keep dressing on clean dry and intact Please call your doctor or present to emergency department if your condition worsens or you develop diarrhea, lightheadedness, fatigue or see blood in your stool or black stool. Please discuss with your doctor to arrange sleep study and regarding weight loss program we have discussed this morning. Discharge Attestations Time Spent in Discharge Care*: less than 30 min Quality Metrics Clinical Quality Measures During this hospital stay, did patient experience: None Coding Level of Care Code Acute Technician Support Engineer for Jean Fwd Diagnoses Diabetic infection of right foot E11.628; L08.9 Diabetes mellitus E11.9 Morbid obesity with BMI of 40.0-44.9, adult E66.01; Z68.41 Obstructive sleep apnea G47.33 Microcytic anemia D50.9
== END 2020-06-04 12:44 | disposition home or self-care (01) | DRG 617 ==
LOC: MEDSURG 14:59
PROVIDERS: Internal Medicine; Admitting Provider Orthopaedic Surgery; PCP Nurse Practitioner Family; Visit Provider Orthopaedic Surgery
PROC: 0Y6H0Z2 Detachment at Right Lower Leg, Mid, Open Approach (ICD-10-PCS; CPT 27880; principal; 2020-06-02 13:00)
DX: E11.621 Type 2 diabetes mellitus with foot ulcer (principal); Z68.41 Body mass index [BMI] 40.0-44.9, adult; E11.42 Type 2 diabetes mellitus with diabetic polyneuropathy; L97.512 Non-pressure chronic ulcer of other part of right foot with fat layer exposed; Z79.4 Long term (current) use of insulin; Z87.891 Personal history of nicotine dependence; E11.610 Type 2 diabetes mellitus with diabetic neuropathic arthropathy; G47.33 Obstructive sleep apnea (adult) (pediatric); E66.01 Morbid (severe) obesity due to excess calories; E53.8 Deficiency of other specified B group vitamins; D50.9 Iron deficiency anemia, unspecified
CPT/HCPCS: 12345; 36415; 36416; 64447; 64450; 76942; 80053; 82607; 82728; 82746; 82962; 83036; 83540; 83550; 83735; 85025; 88307; 96372; 96374; 96375; 97116; 97161; 97165; 97530; J0330; J0690; J1100; J1650; J1756; J1815; J2250; J2270; J2405; J2704; J2765; J2795; J3010; J3420; J7030

== ENCOUNTER 2020-07-17 09:58 | Outpatient (CLI) | payer BC, SELFPAY | END 2020-07-17 09:59 | disposition home or self-care (01) | LOC: WOUND 09:58 | PROVIDERS: PCP Nurse Practitioner Family; Visit Provider Nurse Practitioner Family | DX: T81.31XA Disruption of external operation (surgical) wound, not elsewhere classified, initial encounter (principal); Y83.8 Other surgical procedures as the cause of abnormal reaction of the patient, or of later complication, without mention of misadventure at the time of the procedure; Z89.611 Acquired absence of right leg above knee | CPT/HCPCS: 11042; 99212; L8440 ==

== ENCOUNTER 2020-07-24 09:48 | Outpatient (CLI) | payer SELFPAY | END 2020-07-24 09:49 | disposition home or self-care (01) | LOC: WOUND 10:02 | PROVIDERS: PCP Nurse Practitioner Family; Visit Provider Nurse Practitioner Family | DX: E11.622 Type 2 diabetes mellitus with other skin ulcer (principal); L97.812 Non-pressure chronic ulcer of other part of right lower leg with fat layer exposed; Z89.511 Acquired absence of right leg below knee | CPT/HCPCS: 11042; 87070; 87077; 87186 ==

== ENCOUNTER 2020-07-31 09:13 | Outpatient (CLI) | payer SELFPAY | END 2020-07-31 09:14 | disposition home or self-care (01) | LOC: WOUND 09:13 | PROVIDERS: PCP Nurse Practitioner Family; Visit Provider Nurse Practitioner Family | DX: E11.622 Type 2 diabetes mellitus with other skin ulcer (principal); L97.812 Non-pressure chronic ulcer of other part of right lower leg with fat layer exposed; Z89.511 Acquired absence of right leg below knee | CPT/HCPCS: 11042 ==

== ENCOUNTER 2020-08-07 09:24 | Outpatient (CLI) | payer SELFPAY | END 2020-08-07 09:25 | disposition home or self-care (01) | LOC: WOUND 09:25 | PROVIDERS: PCP Nurse Practitioner Family; Visit Provider Nurse Practitioner Family | DX: E11.622 Type 2 diabetes mellitus with other skin ulcer (principal); L97.812 Non-pressure chronic ulcer of other part of right lower leg with fat layer exposed; Z89.511 Acquired absence of right leg below knee | CPT/HCPCS: 11042 ==

== ENCOUNTER 2020-08-14 09:14 | Outpatient (CLI) | payer OTHER, MEDICAID, SELFPAY | END 2020-08-14 09:15 | disposition home or self-care (01) | LOC: WOUND 09:16 | PROVIDERS: PCP Nurse Practitioner Family; Visit Provider Nurse Practitioner Family | DX: E11.622 Type 2 diabetes mellitus with other skin ulcer (principal); L97.812 Non-pressure chronic ulcer of other part of right lower leg with fat layer exposed; Z89.511 Acquired absence of right leg below knee | CPT/HCPCS: 11042 ==

== ENCOUNTER 2020-08-14 10:48 | Emergency (ER) | payer OTHER, SELFPAY ==
[2020-08-14 10:53] VITALS: BP 157/90; PULSE 90; RESP 18; TEMP 36.5; O2SAT 93; BMI 41.8
--- NOTE | 2020-08-14 11:00 | W.ED.FALL ---
HPI - Fall General: Chief Complaint: Fall Stated Complaint: Fall/injury to rt leg Time Seen by Provider: 08/14/20 10:49 Source: patient Mode of arrival: other (knee scooter) Limitations: no limitations History of Present Illness: HPI Narrative: Patient is a 54-year-old male who presents to ED today for evaluation of an injury near his right BKA. Patient states he was using his knee scooter up a handicap ramp when he accidentally tipped over and fell directly onto his BKA stump. Patient states he just finished with his wound care appointment for a small non-healing area. Patient has been following with Dr. Reyes at orthopedics-plan is for patient to receive his prosthesis once wound is fully healed. Patient denies any other injury sustained during the fall. MD complaint: fall Onset (ago): minute(s) Fall from: wheelchair Fall witnessed: yes, by family and yes, by bystander Place fall occurred: other (Juliana's) Loss of consciousness: None Prolonged down time: no Symptoms prior to fall: none Context: tripped/slipped Associated symptoms-after fall: Reports no associated symptoms; Denies chest pain or neck pain Review of Systems Card: Denies: chest pain Resp: Denies: dyspnea Musc: Reports: extremity pain (R BKA); Denies: neck pain or back pain Neuro: Denies: sensory changes PFS ED PFSH: Medical History Diabetes mellitus Hypertension Morbid obesity with BMI of 40.0-44.9, adult Venous ulcer Surgical History H/O foot surgery right foot Hx of cholecystectomy Family History Family/Other Diabetes Hypertension Denies family history of CAD (coronary artery disease) Clotting disorder Dementia Hyperlipidemia Psychiatric illness Chronic kidney disease (CKD) Suicide Anesthesia complication Bleeding disorder Family history of premature coronary artery disease Lung disease Cancer Stroke Social History Smoking and tobacco status: former smoker Alcohol intake: never Current occupational status: employed Physical Exam Const: COMMON NORMALS: no acute distress, patient oriented x3, no limitations and alert ORIENTATION/CONSCIOUSNESS: Yes awake, Yes oriented to person, Yes oriented to place and Yes oriented to time Extremity: OTHER: R BKA with dressing and sleeve; these were removed; patient has one small quarter sized shallow wound to medial aspect of his stump that appears clean; there are no areas of wound dehiscence, lacerations, or abrasions; patient is complaining of pain and swelling to anterior aspect just superior to his stump EXTREMITY IMAGE (FRONT): 1. TTP/swelling Neuro: COMMON NORMALS: patient oriented x3 SENSORIUM/ORIENTATION: Yes alert, Yes oriented to person, Yes oriented to place and Yes oriented to time Course Vital Signs: Vital signs: Vital Signs Temperature 97.7 F 08/14/20 10:53 Pulse Rate 90 08/14/20 10:53 Respiratory Rate 18 08/14/20 10:53 Blood Pressure 157/90 08/14/20 10:53 Pulse Oximetry 93 08/14/20 10:53 MDM - Fall MDM Narrative: Medical decision making narrative: Patient's XR was normal. He has no changes to the wound on the end of his stump. No new breaks in the skin. Patient can follow-up with PCP in a week for continued pain. He can continue to follow-up with wound care as scheduled. Imaging Data^: XR R knee: Radiologist's impression: [address] [address] [address] Scan Report Signed Patient: Lizzie Rogers Unit #: [id number] : 10/07/1976 Age/Sex: 43 / F ADM Date: 08/14/20 Loc: ER Room/Bed: Attending Dr: Ordering Provider/Ordering MD: Mitzi Mcguire Date of Service: 08/14/20 Procedure(s): CT abdomen pelvis w con* [id number] Accession Number(s): [id number] Report Number: [id number] WS: [id number] CT ABDOMEN PELVIS TECHNIQUE: Contrast-enhanced CT of the abdomen and pelvis with coronal and sagittal reformatted images. CLINICAL INFORMATION: R sided/lower abdominal pain COMPARISON: None. DLP: 907.[address] scans at [facility] use at least one of these dose optimization techniques: automated exposure control; mA and/or kV adjustment per patient size (includes targeted exams where dose is matched to clinical indication); or iterative reconstruction. FINDINGS: Mild diffuse fatty infiltration of the liver. Cholecystectomy clips. Normal portal vein and splenic vein. Hazy groundglass infiltrates in the lung bases. Correlation for viral pneumonia. Adrenal glands are normal. No hydronephrosis. Normal renal parenchymal enhancement. Normal spleen. Normal GE junction. Normal pancreas. Sigmoid diverticuli. Mild thickening and induration about the sigmoid colon suspicious for mild or early diverticulitis. Recommend correlation for infection. Normal appendix in the right lower quadrant. Incidental small bilateral ovarian cysts. No free fluid in the abdomen or pelvis. Urine distended bladder. No abdominal or pelvic lymphadenopathy. Disc osteophyte complex L5-S1 with moderate to severe central canal stenosis and bilateral bony foraminal narrowing. CT/CT abdomen pelvis w con* [id number] IMPRESSION: 1. Normal appendix in the right lower quadrant. No evidence of acute appendicitis. 2. Mild thickening of the sigmoid colon suspicious for early or mild diverticulitis. Correlation for infection. 3. No free fluid in the abdomen or pelvis. 4. Hazy groundglass infiltrates in the lung bases. Recommend correlation for viral pneumonia. 5. Mild diffuse fatty infiltration liver. 6. Disc osteophyte complex L5-S1 with chronic central disc osteophyte protrusion and moderate to severe central canal stenosis. Moderate bilateral L5-S1 bony foraminal narrowing. This can be followed up with MRI. Dictated By: Krishna Campoverde MD Signed By: Krishna Campoverde MD Signed Date/Time: 08/14/20833 DD/ 5 Discharge Plan Discharge Patient Disposition: Home Clinical Impression: Contusion of leg, right Qualifiers: Encounter type: initial encounter Qualified Code(s): S80.11XA - Contusion of right lower leg, initial encounter Condition: Stable Prescriptions: No Action atenolol 50 mg tablet 50 mg PO BID RF: 0 lisinopril 40 mg tablet 40 mg PO DAILY RF: 0 nortriptyline 25 mg capsule 25 mg PO DAILY RF: 0 Tresiba FlexTouch U-100 100 unit/mL (3 mL) insulin pen 160 unit SUBCUT DAILY RF: 0 potassium chloride 20 mEq tablet extended release 20 meq PO DAILY RF: 0 pantoprazole 40 mg tablet,delayed release (DR/EC) 40 mg PO DAILY RF: 0 furosemide [Lasix] 40 mg tablet 40 mg PO BID RF: 0 cholecalciferol (vitamin D3) 125 mcg (5,000 unit) capsule 5,000 unit PO DAILY RF: 0 (DME) Cam boot Qty: 1 RF: 0 (DME) [place] Boot Qty: 1 RF: 0 ibuprofen 800 mg tablet 800 mg PO TID Qty: 30 RF: 1 metformin 500 mg tablet 500 mg PO BID RF: 0 doxycycline hyclate 100 mg capsule 100 mg PO BID 7 Days Qty: 14 RF: 0 (DME) [place] boot Qty: 1 RF: 0 gabapentin 300 mg capsule 300 mg PO TID Qty: 90 RF: 0 acetaminophen-codeine 300-30 mg tablet 1 tab PO Q4H PRN (Reason: pain) 7 Days Qty: 42 RF: 0 (DME) wheelChair See Rx Instructions .Route .MEDSUPPLY Qty: 1 RF: 0 (DME) Wheelchair See Rx Instructions .Route .MEDSUPPLY Qty: 1 RF: 0 (DME) Right BK protector See Rx Instructions .Route .MEDSUPPLY Qty: 1 RF: 0 (DME) Stump Quilter Fixer See Rx Instructions .Route .MEDSUPPLY Qty: 1 RF: 0 Novolog U-100 Insulin aspart See Rx Instructions .ROUTE .COMPLEX RF: 0 hydrocodone-acetaminophen 5-325 mg Tablet 1 - 2 tab PO Q4H PRN (Reason: Breakthrough Pain) Qty: 40 RF: 0 enoxaparin 40 mg/0.4 mL Syringe 40 mg SUBCUT Q24H Qty: 30 RF: 0 cyanocobalamin (vitamin B-12) 1,000 mcg capsule 1,000 mcg PO DAILY Qty: 30 RF: 0 folic acid 1 mg tablet 1 mg PO DAILY Qty: 30 RF: 0 ferrous sulfate, dried 144 mg (45 mg iron) Tablet Extended Release 144 mg PO EVERY OTHER DAY Qty: 0 RF: 0 Discharge Orders: Discharge ED (Routine); Ordered 08/14/20 Ordered By: Mitzi Mcguire Referrals: Jennifer Jimenez FNP [Primary Care Provider] - Coding Level of Care Code ED Online Marketing Strategist for Chg Fwd Exam Problem Focused
--- NOTE | 2020-08-14 11:10 | XR_ITS ---
WS: [id number] Exam: XR knee RT 3V* [id number] Date/Time of Exam: 08/14/2020 11:20 AM Reason For Exam: BKA; fall; pain No fracture or dislocation. Below knee amputation noted. Soft tissues are unremarkable. No joint effu kaitlin. XR/XR knee RT 3V* [id number] IMPRESSION: 1. Mild degenerative change of the knee. No fracture or dislocation. 2. Status post below-knee amputation.
--- NOTE | 2020-08-14 11:33 | PC.NURSE ---
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 Patient and family both declined dressing.
[2020-08-14 11:53] VITALS: BP 160/80; PULSE 80; RESP 18; O2SAT 95
== END 2020-08-14 11:55 | disposition home or self-care (01) ==
PROVIDERS: Emergency Provider Physician Assistant; PCP Nurse Practitioner Family
DX: S80.11XA Contusion of right lower leg, initial encounter (principal); Z79.4 Long term (current) use of insulin; E11.9 Type 2 diabetes mellitus without complications; I10 Essential (primary) hypertension; Z87.891 Personal history of nicotine dependence; W01.198A Fall on same level from slipping, tripping and stumbling with subsequent striking against other object, initial encounter; Z89.511 Acquired absence of right leg below knee
CPT/HCPCS: 12345; 73562; 99281; 99282

== ENCOUNTER 2020-08-21 09:36 | Outpatient (CLI) | payer OTHER, SELFPAY | END 2020-08-21 09:37 | disposition home or self-care (01) | LOC: WOUND 09:36 | PROVIDERS: PCP Nurse Practitioner Family; Visit Provider Nurse Practitioner Family | DX: E11.622 Type 2 diabetes mellitus with other skin ulcer (principal); L97.812 Non-pressure chronic ulcer of other part of right lower leg with fat layer exposed; Z89.511 Acquired absence of right leg below knee | CPT/HCPCS: 11043 ==

== ENCOUNTER 2020-09-11 10:22 | Outpatient (CLI) | payer OTHER, SELFPAY | END 2020-09-11 10:23 | disposition home or self-care (01) | LOC: WOUND 10:23 | PROVIDERS: PCP Nurse Practitioner Family; Visit Provider Nurse Practitioner Family | DX: E11.622 Type 2 diabetes mellitus with other skin ulcer (principal); L97.812 Non-pressure chronic ulcer of other part of right lower leg with fat layer exposed; Z89.511 Acquired absence of right leg below knee | CPT/HCPCS: 11042 ==

== ENCOUNTER 2020-09-18 09:53 | Outpatient (CLI) | payer OTHER, SELFPAY | END 2020-09-18 09:54 | disposition home or self-care (01) | LOC: WOUND 09:53 | PROVIDERS: PCP Nurse Practitioner Family; Visit Provider Nurse Practitioner Family | DX: E11.622 Type 2 diabetes mellitus with other skin ulcer (principal); L97.812 Non-pressure chronic ulcer of other part of right lower leg with fat layer exposed; Z89.511 Acquired absence of right leg below knee | CPT/HCPCS: 11042 ==

== ENCOUNTER 2020-09-26 20:48 | Emergency (ER) | payer OTHER, SELFPAY ==
[2020-09-26 21:22] VITALS: BP 159/76; PULSE 90; RESP 17; O2SAT 95
[2020-09-26 21:24] VITALS: BP 166/84; PULSE 93; RESP 18; TEMP 36.3; O2SAT 95; BMI 41.8
--- NOTE | 2020-09-26 21:31 | USCV_ITS ---
Froylan Jayy Age: 55 Gender: M : 1965 Exam Date: 09/26/2020 21:55 Ordering Phys: Hardy Anderson MD Technologist: Jc Zheng Exam Location[place] [facility] [place] Indication: LT LEG PAIN AND SWELLING HISTORY: Lower extremity pain. PROCEDURES: Venous duplex imaging was performed in only the left lower extremity. The following venous structures were evaluated: common femoral vein, profunda vein, proximal portion of the greater saphenous vein, superficial femoral vein, and the popliteal vein. In addition, the posterior tibial and peroneal trunk were evaluated. FINDINGS: Normal 2-D Doppler and augmentation and compressibility throughout the lower extremity venous structures. Additional imaging through the proximal calf veins also reveals no thrombus. Limited evaluation of the greater saphenous vein is patent with no thrombus.. Echo lucent areas were noted in the subcutaneous tissue of the left lower leg CONCLUSIONS No evidence of DVT in the above-mentioned identifiable veins. Features of fluid retention/edema in the below-knee level of the left leg Dr Socrates Pardo MD [facility] (Electronically Signed) Final Date: 27 September 2020 18:49 S
--- NOTE | 2020-09-26 21:32 | W.ED.GENADLT ---
HPI - General Adult General: Chief complaint: General Medical Stated complaint: swelling in left leg Time Seen by Provider: 09/26/20 21:25 History of Present Illness: HPI narrative: The patient is a 55-year-old male who comes to the ER complaining of left lower extremity swelling and erythema. He is a type II diabetic and has a right lower extremity BKA. He says his leg has been swelling for the past week and is turning red the past 2 days and this evening it felt particularly red and warm. He says he gets concerned because that is how he lost his right leg to an infection. Location: left and lower extremity Severity: mild Quality: sharp Pain Consistency: constant Relieving factors: none Associated symptoms: Reports no associated symptoms; Deny chest pain, confusion, dyspnea, headache(s), rash or palpitations Review of Systems General: Reports: 10 or more systems reviewed and unremarkable except in HPI and below Const: Denies: fatigue Eyes: Denies: change in vision, blurry vision or eye redness ENMT: Denies: throat pain, swelling of lips/tongue, ear or mastoid pain or nasal congestion Card: Denies: chest pain, palpitations, irregular heart rhythm, edema, dyspnea on exertion or orthopnea Resp: Denies: dyspnea, productive cough or non-productive cough GI: Denies: abdominal pain, diarrhea or GI cramping : Denies: flank pain, urinary frequency or urinary urgency Musc: Denies: neck pain, back pain, extremity pain, joint pain, joint redness, limited range of motion or muscle weakness Skin/Breast: Reports: erythema and skin swelling; Denies: rash, pruritus, skin pain or skin tenderness Neuro: Denies: headache(s), numbness in extremities, weakness in extremities, sensory changes, difficulty walking, dizziness, confusion or Slurred speech present Psych: Denies: anxiety or depression Endo: Denies: polyuria All/Imm: Denies: urticaria, throat swelling or tongue swelling PFSH ED PFSH: Medical History Diabetes mellitus Hypertension Morbid obesity with BMI of 40.0-44.9, adult Venous ulcer Surgical History H/O foot surgery right foot Hx of cholecystectomy Family History Family/Other Diabetes Hypertension Denies family history of CAD (coronary artery disease) Clotting disorder Dementia Hyperlipidemia Psychiatric illness Chronic kidney disease (CKD) Suicide Anesthesia complication Bleeding disorder Family history of premature coronary artery disease Lung disease Cancer Stroke Social History Smoking and tobacco status: former smoker Alcohol intake: never Current occupational status: employed Physical Exam Const: COMMON NORMALS: no acute distress, average body habitus, patient oriented x3, no limitations, healthy appearing, alert and well nourished GENERAL APPEARANCE: cooperative, comfortable, well kempt and well developed ORIENTATION/CONSCIOUSNESS: Yes awake, Yes oriented to person, Yes oriented to place and Yes oriented to time HENMT: COMMON NORMALS: normocephalic, external ears normal and Normal external nose present HEAD & SCALP: normal to inspection and normocephalic NOSE: Normal external nose present EXTERNAL EAR: Yes external ears normal MOUTH: Normal oral and palatal mucosa present THROAT: posterior oropharynx normal Eye: COMMON NORMALS: Equal, round and reactive pupils present and EOMs intact bilaterally GENERAL EYE: appearance normal, both eyes and all related structures PUPIL: Yes Equal, round and reactive pupils present Neck/C-Spine: COMMON NORMALS: full ROM, no lymphadenopathy, no meningeal signs and no JVD GENERAL: Yes normal visual inspection Lymph: LYMPHATIC: no lymphadenopathy noted Chest: COMMONS NORMALS: normal inspection of the chest and normal palpation of entire chest wall Resp: COMMON NORMALS: normal respiratory effort, No retractions, No use of accessory muscles, clear to auscultation bilaterally and percussion normal EFFORT & INSPECTION: Yes able to speak in complete sentences AUSCULTATION: clear to auscultation bilaterally PERCUSSION: percussion normal Cardio: COMMON NORMALS: no JVD, regular rate, regular rhythm, S1 normal heart sound present, S2 normal heart sound present and Peripheral pulses 2+ throughout RATE: regular rate RHYTHM: regular rhythm HEART SOUNDS: S1 normal heart sound present and S2 normal heart sound present PERIPHERAL PULSES: Peripheral pulses 2+ throughout GI: COMMON NORMALS: Normal to inspection, nondistended, normoactive bowel sounds present, Soft to palpation, non-tender and no masses INSPECTION: Yes normal to inspection PALPATION: Yes Soft to palpation : COMMON NORMALS: Yes no CVA tenderness BLADDER/KIDNEY EXAM: Yes no CVA tenderness Back/Pelvis: COMMON NORMALS: no CVA tenderness, thoracic and lumbar spine normal to inspection, no thoracic nor lumbar tenderness and thoraco-lumbar ROM normal Extremity: COMMON NORMALS: normal to inspection, full ROM, capillary refill normal, no joint enlargement and no pedal edema NARRATIVE EXTREMITY EXAM: Right lower extremity BKA. Left lower extremity he has erythema to the distal leg anteriorly extending to his forefoot. Appears like cellulitis. There is some swelling as well associated. Neurovascularly intact to toes. GENERAL: Yes normal exam except as noted Neuro: COMMON NORMALS: patient oriented x3, CN's II-XII intact bilaterally, moves all extremities, no focal motor deficits, no sensory deficits noted and gait normal SENSORIUM/ORIENTATION: Yes alert, Yes oriented to person, Yes oriented to place and Yes oriented to time MENINGEAL SIGNS: Yes no meningeal signs Psych: COMMON NORMALS: mental status grossly normal, Normal thought process present, cooperative, normal affect and speech normal APPEARANCE: Yes well kempt ATTITUDE: Yes calm SPEECH: Yes normal speech THOUGHT PROCESS: Normal thought process present Skin: COMMON NORMALS: no rashes or lesions noted GENERAL SKIN EXAM: no rashes or lesions noted Course Vital Signs: Vital signs: Vital Signs Temperature 97.4 F L 09/26/20 21:24 Pulse Rate 93 09/26/20 21:24 Respiratory Rate 18 09/26/20 21:24 Blood Pressure 166/84 09/26/20 21:24 Pulse Oximetry 95 09/26/20 21:24 MDM - General Adult MDM Narrative: Medical decision making narrative: The patient has a cellulitis of his left lower extremity. No DVT. Normal white count. He is stable for discharge with Keflex. He was given an IV dose of ceftriaxone in the ED. Also discussed with him his renal function and to get it monitored and a skin check at his primary care physician's office in 3 to 5 days Lab Data: Labs: Lab Results 09/26/20 09/26/20 09/26/20 Range/Units 21:57 21:57 21:57 WBC 9.6 (4.0-10.0) 10^3/ uL RBC 4.73 (4.1-5.3) 10^6/u L Hgb 12.5 (11.7-16.6) g/dL Hct 38.2 L (42.0-52.0) % MCV 80.8 (80-94) fL MCH 26.4 L (28.0-34.0) pg MCHC 32.7 (30.0-36.0) g/dL RDW 14.4 (12.1-15.1) % Plt Count 256 (130-400) 10^3/c mm MPV 9.4 (7.4-10.4) fL Neut % (Auto) 75.0 % Lymph % (Auto) 13.9 % [place] % (Auto) 9.6 % Eos % (Auto) 0.6 % Baso % (Auto) 0.4 % Neut # (Auto) 7.15 (1.8-7.7) 10^3/u L Lymph # (Auto) 1.3 (0.8-4.8) 10^3/u L [place] # (Auto) 0.9 (0.2-0.9) 10^3/u L Eos # (Auto) 0.1 (0.0-0.8) 10^3/u L Baso # (Auto) 0.0 (0.0-0.1) 10^3/u L Nucleated RBC % (a uto) 0 % Nucleated RBCs # 0.0 /100WBC Sodium 133 L (136-145) mmol/L Potassium 4.0 (3.5-5.1) mmol/L Chloride 96 L (98-107) mmol/L Carbon Dioxide 25 (22-29) mmol/L Anion Gap 16.0 (5-19) BUN 14 (6-20) mg/dL Creatinine 1.3 H (0.7-1.2) mg/dL GFR Calculation 57.5 L (90-130) mL/min Glucose 242 H (65-115) mg/dL Calculated Osmolal ity 284 L (285-295) mOsm/k g Lactate 1.7 (0.5-2.2) mmol/L Calcium 8.7 (8.5-10.5) mg/dL Total Bilirubin 0.5 (0.15-1.2) mg/dL AST 16 (0-40) U/L ALT 30 (0-41) U/L Alkaline Phosphata se 95 (40-130) IU/L NT-Pro-B Natriuret Pep 110 (0-125) pg/mL Total Protein 6.7 (6.6-8.7) g/dL Albumin 3.8 (3.5-5.2) g/dL Globulin 2.9 (1.3-4.6) g/dL Discharge Plan Discharge Patient Disposition: Home Clinical Impression: Cellulitis Condition: Stable Prescriptions: New Keflex 500 mg capsule 500 mg PO BID 10 Days Qty: 20 RF: 0 No Action atenolol 50 mg tablet 50 mg PO BID RF: 0 lisinopril 40 mg tablet 40 mg PO DAILY RF: 0 nortriptyline 25 mg capsule 25 mg PO DAILY RF: 0 Tresiba FlexTouch U-100 100 unit/mL (3 mL) insulin pen 160 unit SUBCUT DAILY RF: 0 potassium chloride 20 mEq tablet extended release 20 meq PO DAILY RF: 0 pantoprazole 40 mg tablet,delayed release (DR/EC) 40 mg PO DAILY RF: 0 furosemide [Lasix] 40 mg tablet 40 mg PO BID RF: 0 cholecalciferol (vitamin D3) 125 mcg (5,000 unit) capsule 5,000 unit PO DAILY RF: 0 (DME) Cam boot Qty: 1 RF: 0 (DME) [place] Boot Qty: 1 RF: 0 ibuprofen 800 mg tablet 800 mg PO TID Qty: 30 RF: 1 metformin 500 mg tablet 500 mg PO BID RF: 0 doxycycline hyclate 100 mg capsule 100 mg PO BID 7 Days Qty: 14 RF: 0 (DME) [place] boot Qty: 1 RF: 0 gabapentin 300 mg capsule 300 mg PO TID Qty: 90 RF: 0 acetaminophen-codeine 300-30 mg tablet 1 tab PO Q4H PRN (Reason: pain) 7 Days Qty: 42 RF: 0 (DME) wheelChair See Rx Instructions .Route .MEDSUPPLY Qty: 1 RF: 0 (DME) Wheelchair See Rx Instructions .Route .MEDSUPPLY Qty: 1 RF: 0 (DME) Right BK protector See Rx Instructions .Route .MEDSUPPLY Qty: 1 RF: 0 (DME) 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 See Rx Instructions .Route .MEDSUPPLY Qty: 1 RF: 0 Novolog U-100 Insulin aspart See Rx Instructions .ROUTE .COMPLEX RF: 0 hydrocodone-acetaminophen 5-325 mg Tablet 1 - 2 tab PO Q4H PRN (Reason: Breakthrough Pain) Qty: 40 RF: 0 enoxaparin 40 mg/0.4 mL Syringe 40 mg SUBCUT Q24H Qty: 30 RF: 0 cyanocobalamin (vitamin B-12) 1,000 mcg capsule 1,000 mcg PO DAILY Qty: 30 RF: 0 folic acid 1 mg tablet 1 mg PO DAILY Qty: 30 RF: 0 ferrous sulfate, dried 144 mg (45 mg iron) Tablet Extended Release 144 mg PO EVERY OTHER DAY Qty: 0 RF: 0 Discharge Orders: Discharge ED (Routine); Ordered 09/26/20 Ordered By: Hardy Anderson Referrals: Jennifer Jimenez FNP [Primary Care Provider] - Patient Instructions: Opioid Safety Activity Restrictions/Additional Instructions: You have an infection of your leg called cellulitis. Please take the antibiotics and it should get better in a few days. Follow-up with your primary care physician in 3 to 5 days for a skin check and return to the ER with worsening symptoms. Also you have a slight decrease in your kidney function. Please also have your physician recheck your kidneys at that time. If you do not have them rechecked there is a chance it can get worse and possibly need dialysis down the road. 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
[2020-09-26 21:59] LABS: Basophils % 0.4 %; Eosinophils # 0.1 10^3/uL (0.0-0.8); Eosinophils % 0.6 %; Hematocrit 38.2 % (42.0-52.0); Hemoglobin 12.5 g/dL (11.7-16.6); Lymphocytes # 1.3 10^3/uL (0.8-4.8); Lymphocytes % 13.9 %; Mean Corpuscular HGB Conc 32.7 g/dL (30.0-36.0); Mean Corpuscular Hemoglobin 26.4 pg (28.0-34.0); Mean Corpuscular Volume 80.8 fL (80-94); Mean Platelet Volume 9.4 fL (7.4-10.4); Monocytes # 0.9 10^3/uL (0.2-0.9); Monocytes % 9.6 %; Neutrophils # 7.15 10^3/uL (1.8-7.7); Nucleated Red Blood Cells % 0 %; Platelet Count 256 10^3/cmm (130-400); Red Blood Count 4.73 10^6/uL (4.1-5.3); Red Cell Distribution Width 14.4 % (12.1-15.1); White Blood Count 9.6 10^3/uL (4.0-10.0)
[2020-09-26 22:19] LABS: Lactate (Lactic Acid level) 1.7 mmol/L (0.5-2.2)
[2020-09-26] MEDS: cefTRIAXone 1,000 MG in sodium chloride 0.9% (plus) 50 ML 100 MG IV (22:23)
[2020-09-26 22:30] LABS: Alanine Aminotransferase 30 U/L (0-41); Albumin Level 3.8 g/dL (3.5-5.2); Alkaline Phosphatase 95 IU/L (40-130); Aspartate Amino Transferase 16 U/L (0-40); Blood Urea Nitrogen 14 mg/dL (6-20); Calcium 8.7 mg/dL (8.5-10.5); Carbon Dioxide 25 mmol/L (22-29); Chloride 96 mmol/L (98-107); Globulin 2.9 g/dL (1.3-4.6); Glomerular Filtration Rate 57.5 mL/min (90-130); Glucose 242 mg/dL (65-115); NT Pro B Type Natriuretic Pept 110 pg/mL (0-125); Osmolality Calculated 284 mOsm/kg (285-295); Sodium 133 mmol/L (136-145); Total Bilirubin 0.5 mg/dL (0.15-1.2); Total Protein 6.7 g/dL (6.6-8.7)
[2020-09-26 23:22] VITALS: BP 141/60; PULSE 90; RESP 18; O2SAT 94
== END 2020-09-26 23:22 | disposition home or self-care (01) ==
PROVIDERS: Emergency Provider Family Medicine; PCP Nurse Practitioner Family
DX: L03.116 Cellulitis of left lower limb (principal); E11.9 Type 2 diabetes mellitus without complications; I10 Essential (primary) hypertension; Z87.891 Personal history of nicotine dependence
CPT/HCPCS: 80053; 83605; 83880; 85025; 93971; 96365; 99283; J0696

== ENCOUNTER 2020-10-02 10:38 | Outpatient (CLI) | payer OTHER, SELFPAY | END 2020-10-02 10:39 | disposition home or self-care (01) | LOC: WOUND 10:39 | PROVIDERS: PCP Nurse Practitioner Family; Visit Provider Nurse Practitioner Family | DX: L03.116 Cellulitis of left lower limb (principal) | CPT/HCPCS: G0463 ==

== ENCOUNTER 2020-10-02 12:22 | Inpatient (IN) | payer OTHER, SELFPAY ==
[2020-10-02 12:27] VITALS: BP 128/73; PULSE 72; RESP 18; TEMP 36.7; O2SAT 100; BMI 39.9
--- NOTE | 2020-10-02 13:52 | ED_ITS ---
HPI - Extremity Problem General: Chief complaint: Extremity Injury, Lower Stated complaint: wound care sent to see in ER Time Seen by Provider: 10/02/20 13:13 Source: patient and old records reviewed Mode of arrival: ambulatory Limitations: no limitations History of Present Illness: HPI Narrative: Patient is a 55-year-old male with a history of diabetes mellitus and peripheral neuropathy who is status post right below-knee amputation and presents to the emergency department with a wound and redness to his left lower extremity. He states that a two weeks ago he stepped on a nail, and he did not feel it until the next day when his girlfriend saw the nail still embedded in his foot. He was seen in the emergency department after that will discharged home with a prescription for Keflex. The wound and the redness did not get better so his primary care provider changed antibiotic to clindamycin. He was seen at the wound care clinic today and the provider there felt it was worsening so she sent him here to be evaluated. Associated symptoms: Deny fever(s) or rash Review of Systems General: Reports: 10 or more systems reviewed and unremarkable except in HPI and below Const: Denies: fever(s), chills or body aches Eyes: Denies: change in vision or blurry vision ENMT: Denies: throat pain, enlarged tonsils, odynophagia, hoarseness, mouth pain or swelling of lips/tongue Card: Denies: palpitations, irregular heart rhythm, edema or swelling of feet/ankles Resp: Denies: dyspnea, productive cough or non-productive cough GI: Denies: abdominal pain, nausea or vomiting : Denies: flank pain, dysuria, urinary frequency, urinary urgency or urinary hesitancy Musc: Reports: extremity pain; Denies: neck pain, back pain or extremity swelling Skin/Breast: Reports: erythema and sores; Denies: rash or pruritus Neuro: Denies: headache(s), numbness in extremities or weakness in extremities Endo: Denies: polyuria, polydipsia or tired all the time PFS ED PFSH: Medical History Charcot's joint of right foot Diabetes mellitus Hx of osteomyelitis Hypertension Microcytic anemia Morbid obesity with BMI of 40.0-44.9, adult Obstructive sleep apnea Venous ulcer Surgical History H/O foot surgery right foot History of right below knee amputation Hx of cholecystectomy Family History Family/Other Diabetes Hypertension Denies family history of CAD (coronary artery disease) Clotting disorder Dementia Hyperlipidemia Psychiatric illness Chronic kidney disease (CKD) Suicide Anesthesia complication Bleeding disorder Family history of premature coronary artery disease Lung disease Cancer Stroke Social History Smoking and tobacco status: former smoker Alcohol intake: never Current occupational status: employed Physical Exam Const: COMMON NORMALS: no acute distress, average body habitus, patient oriented x3, no limitations, healthy appearing, alert and well nourished HENMT: COMMON NORMALS: normocephalic, atraumatic and moist oral mucous membranes HEAD & SCALP: normocephalic and atraumatic Neck/C-Spine: COMMON NORMALS: no meningeal signs and no JVD Resp: COMMON NORMALS: normal respiratory effort, No retractions, No use of accessory muscles, clear to auscultation bilaterally and percussion normal AUSCULTATION: clear to auscultation bilaterally PERCUSSION: percussion normal Cardio: COMMON NORMALS: no JVD, regular rate, regular rhythm, S1 normal heart sound present, S2 normal heart sound present, No gallops present (Cardio), No clicks present (Cardio), No murmurs present (Cardio), No rub (Cardio) and Peripheral pulses 2+ throughout RATE: regular rate RHYTHM: regular rhythm HEART SOUNDS: S1 normal heart sound present and S2 normal heart sound present PERIPHERAL PULSES: Peripheral pulses 2+ throughout GI: COMMON NORMALS: Normal to inspection, nondistended, normoactive bowel sounds present, Soft to palpation, non-tender, No hepatosplenomegaly present, no masses and no bruits PALPATION: Yes Soft to palpation and Yes No hepatosplenomegaly present Extremity: COMMON NORMALS: normal to inspection, full ROM, capillary refill normal, no calf tenderness and no pedal edema Neuro: COMMON NORMALS: patient oriented x3 SENSORIUM/ORIENTATION: Yes alert MENINGEAL SIGNS: Yes no meningeal signs Skin: COMMON NORMALS: turgor normal, no jaundice, no petechiae and no mottling GENERAL SKIN EXAM: turgor normal WOUNDS: Yes wounds noted (Open area lateral part of the proximal palmar foot, surrounding erythema) drainage (Mild purulent) purulent, margins macerated and with surrounding erythema, open and with surrounding erythema OTHER: Left foot and distal leg with erythema, warmth, swelling. Course Consultations: Consultation #1: Discussed the patient with Dr. Vazquez, hospitalist and he kindly accepted patient to his service. Time: 15:00 Vital Signs: Vital signs: Vital Signs Temperature 99.1 F 10/02/20 18:57 Pulse Rate 82 10/02/20 18:57 Respiratory Rate 18 10/02/20 18:57 Blood Pressure 146/94 10/02/20 18:57 Pulse Oximetry 98 10/02/20 18:57 MDM - Extremity (Nontraumatic) MDM Narrative: Medical decision making narrative: 55-year-old male with a history of diabetes mellitus, peripheral neuropathy, status post right below- knee amputation sustained a puncture wound to his left foot about 2 weeks ago. Wound has been gradually worsening despite being on antibiotics-first cephalexin and now clindamycin. Because of the worsening of his wound and his risk factors he was sent to the emergency department. In the emergency department he was noted to have leukocytosis, CT scan showed cellulitis and no osteomyelitis. He was given 1 dose of intravenous vancomycin and Zosyn in the emergency department and he is admitted to the hospital for further evaluation and management. Medical Records: Attestation: I reviewed the patient's medical records. Lab Data: Attestation: I reviewed the patient's lab results. Labs: Lab Results 10/02/20 10/02/20 10/02/20 Range/Units 13:38 13:38 13:38 WBC 15.5 H (4.0-10.0) 10^3/ uL RBC 4.53 (4.1-5.3) 10^6/u L Hgb 11.8 (11.7-16.6) g/dL Hct 37.5 L (42.0-52.0) % MCV 82.8 (80-94) fL MCH 26.0 L (28.0-34.0) pg MCHC 31.5 (30.0-36.0) g/dL RDW 14.7 (12.1-15.1) % Plt Count 451 H (130-400) 10^3/c mm MPV 9.3 (7.4-10.4) fL Neut % (Auto) 72.4 % Lymph % (Auto) 10.1 % [place] % (Auto) 13.4 % Eos % (Auto) 1.9 % Baso % (Auto) 0.5 % Neut # (Auto) 11.19 H (1.8-7.7) 10^3/u L Lymph # (Auto) 1.6 (0.8-4.8) 10^3/u L [place] # (Auto) 2.1 H (0.2-0.9) 10^3/u L Eos # (Auto) 0.3 (0.0-0.8) 10^3/u L Baso # (Auto) 0.1 (0.0-0.1) 10^3/u L Nucleated RBC % (a uto) 0 % Nucleated RBCs # 0.0 /100WBC ESR (0-10) mm/hr Sodium 131 L (136-145) mmol/L Potassium 4.1 (3.5-5.1) mmol/L Chloride 95 L (98-107) mmol/L Carbon Dioxide 23 (22-29) mmol/L Anion Gap 17.1 (5-19) BUN 25 H (6-20) mg/dL Creatinine 1.6 H (0.7-1.2) mg/dL GFR Calculation 45.3 L (90-130) mL/min Glucose 222 H (65-115) mg/dL Calculated Osmolal ity 283 L (285-295) mOsm/k g Lactate 1.7 (0.5-2.2) mmol/L Calcium 8.9 (8.5-10.5) mg/dL Total Bilirubin 0.6 (0.15-1.2) mg/dL AST 24 (0-40) U/L ALT 27 (0-41) U/L Alkaline Phosphata se 130 (40-130) IU/L C-Reactive Protein 280.1 H (0.0-4.9) mg/L Total Protein 7.4 (6.6-8.7) g/dL Albumin 3.6 (3.5-5.2) g/dL Globulin 3.8 (1.3-4.6) g/dL 10/02/20 Range/Units 13:38 WBC (4.0-10.0) 10^3/ uL RBC (4.1-5.3) 10^6/u L Hgb (11.7-16.6) g/dL Hct (42.0-52.0) % MCV (80-94) fL MCH (28.0-34.0) pg MCHC (30.0-36.0) g/dL RDW (12.1-15.1) % Plt Count (130-400) 10^3/c mm MPV (7.4-10.4) fL Neut % (Auto) % Lymph % (Auto) % [place] % (Auto) % Eos % (Auto) % Baso % (Auto) % Neut # (Auto) (1.8-7.7) 10^3/u L Lymph # (Auto) (0.8-4.8) 10^3/u L [place] # (Auto) (0.2-0.9) 10^3/u L Eos # (Auto) (0.0-0.8) 10^3/u L Baso # (Auto) (0.0-0.1) 10^3/u L Nucleated RBC % (a uto) % Nucleated RBCs # /100WBC ESR 90 H (0-10) mm/hr Sodium (136-145) mmol/L Potassium (3.5-5.1) mmol/L Chloride (98-107) mmol/L Carbon Dioxide (22-29) mmol/L Anion Gap (5-19) BUN (6-20) mg/dL Creatinine (0.7-1.2) mg/dL GFR Calculation (90-130) mL/min Glucose (65-115) mg/dL Calculated Osmolal ity (285-295) mOsm/k g Lactate (0.5-2.2) mmol/L Calcium (8.5-10.5) mg/dL Total Bilirubin (0.15-1.2) mg/dL AST (0-40) U/L ALT (0-41) U/L Alkaline Phosphata se (40-130) IU/L C-Reactive Protein (0.0-4.9) mg/L Total Protein (6.6-8.7) g/dL Albumin (3.5-5.2) g/dL Globulin (1.3-4.6) g/dL Imaging Data^: Other CT: Attestation: I personally reviewed and interpreted this imaging study as follows: Radiologist's impression: [facility] [address] [place] [address] CT Scan Report Signed Patient: Jayy Galeano #: [id number] : 1965Acct#:[id number] Age/Sex: 55 / MADM Date: 10/02/20 Loc: ERRoom/Bed: Attending Dr: Ordering Provider/Ordering MD: Bhumika Ordaz MD, [facility] [place] Date of Service: 10/02/20 Procedure(s): CT foot LT wo con* [id number] Accession Number(s): [id number] Report Number: [id number] PROCEDURE INFORMATION: Exam: CT Left Lower Extremity Without Contrast, Foot Exam date and time: 10/02/2020 2:42 PM Age: 55 years old Clinical indication: Other: Non healing ulcer; Additional info: Cellulitis, diabetic ulcer, ? osteo TECHNIQUE: Imaging protocol: CT of the Left lower extremity without contrast was performed. Exam focused on the foot. Radiation optimization: All CT scans at this facility use at least one of these dose optimization techniques: automated exposure control; mA and/or kV adjustment per patient size (includes targeted exams where dose is matched to clinical indication); or iterative reconstruction. COMPARISON: No relevant prior studies available. RADIATION DOSE METRICS: Total DLP (mGy-cm): 194 FINDINGS: Bones/joints: No fractures. Joint space alignments are unremarkable. Hammertoe deformities 2nd through 5th digits. No aggressive lytic bone lesion. No periosteal bone reaction changes. Soft tissues: Diffuse circumferential subcutaneous soft tissue edema throughout the imaged leg. No focal loculated drainable abscess identified. CT/CT foot LT wo con* [id number] IMPRESSION: 1. Negative for osteomyelitis. 2. Diffuse subcutaneous soft tissue edema may indicate cellulitis. 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
[2020-10-02 14:04] LABS: Basophils # 0.1 10^3/uL (0.0-0.1); Basophils % 0.5 %; Eosinophils # 0.3 10^3/uL (0.0-0.8); Eosinophils % 1.9 %; Hematocrit 37.5 % (42.0-52.0); Hemoglobin 11.8 g/dL (11.7-16.6); Lymphocytes # 1.6 10^3/uL (0.8-4.8); Lymphocytes % 10.1 %; Mean Corpuscular HGB Conc 31.5 g/dL (30.0-36.0); Mean Corpuscular Volume 82.8 fL (80-94); Mean Platelet Volume 9.3 fL (7.4-10.4); Monocytes # 2.1 10^3/uL (0.2-0.9); Monocytes % 13.4 %; Neutrophils # 11.19 10^3/uL (1.8-7.7); Neutrophils % 72.4 %; Nucleated Red Blood Cells % 0 %; Platelet Count 451 10^3/cmm (130-400); Red Blood Count 4.53 10^6/uL (4.1-5.3); Red Cell Distribution Width 14.7 % (12.1-15.1); White Blood Count 15.5 10^3/uL (4.0-10.0)
[2020-10-02] MEDS: vancomycin 1,500 MG/300 ML PIGGYBACK 200 MG IV (14:05)
[2020-10-02 14:08] LABS: Lactate (Lactic Acid level) 1.7 mmol/L (0.5-2.2)
[2020-10-02 14:09] LABS: Alanine Aminotransferase 27 U/L (0-41); Albumin Level 3.6 g/dL (3.5-5.2); Alkaline Phosphatase 130 IU/L (40-130); Anion Gap 17.1 (5-19); Aspartate Amino Transferase 24 U/L (0-40); Blood Urea Nitrogen 25 mg/dL (6-20); C Reactive Protein 280.1 mg/L (0.0-4.9); Calcium 8.9 mg/dL (8.5-10.5); Carbon Dioxide 23 mmol/L (22-29); Chloride 95 mmol/L (98-107); Globulin 3.8 g/dL (1.3-4.6); Glomerular Filtration Rate 45.3 mL/min (90-130); Glucose 222 mg/dL (65-115); Osmolality Calculated 283 mOsm/kg (285-295); Potassium 4.1 mmol/L (3.5-5.1); Sodium 131 mmol/L (136-145); Total Bilirubin 0.6 mg/dL (0.15-1.2); Total Protein 7.4 g/dL (6.6-8.7)
--- NOTE | 2020-10-02 14:22 | CTR_ITS ---
PROCEDURE INFORMATION: Exam: CT Left Lower Extremity Without Contrast, Foot Exam date and time: 10/02/2020 2:42 PM Age: 55 years old Clinical indication: Other: Non healing ulcer; Additional info: Cellulitis, diabetic ulcer, ? osteo TECHNIQUE: Imaging protocol: CT of the Left lower extremity without contrast was performed. Exam focused on the foot. Radiation optimization: All CT scans at this facility use at least one of these dose optimization techniques: automated exposure control; mA and/or kV adjustment per patient size (includes targeted exams where dose is matched to clinical indication); or iterative reconstruction. COMPARISON: No relevant prior studies available. RADIATION DOSE METRICS: Total DLP (mGy-cm): 194 FINDINGS: Bones/joints: No fractures. Joint space alignments are unremarkable. Hammertoe deformities 2nd through 5th digits. No aggressive lytic bone lesion. No periosteal bone reaction changes. Soft tissues: Diffuse circumferential subcutaneous soft tissue edema throughout the imaged leg. No focal loculated drainable abscess identified. CT/CT foot LT wo con* [id number] IMPRESSION: 1. Negative for osteomyelitis. 2. Diffuse subcutaneous soft tissue edema may indicate cellulitis. Radiation Dose CTDIVOL = (mGy): DLP = 194 (mGy-cm)
--- NOTE | 2020-10-02 15:14 | PM.HP ---
Providers/Chief Complaint Primary Care Provider: MARCOS Chopra Chief Complaint: wound care sent to see in ER History of Present Illness Jayy Galeano is a 55 year old male who has history of right BKA 06/06 presented today with chief complaint of left foot worsening infection. Patient is stating that roughly about 1.5 weeks ago he stepped on a nail, initially thought he just scraped his foot over the head of the nail but after a few days his girlfriend noticed an took out the nail which was about 1.5 cm long. Then her girlfriend tried to scrape off the skin at home. His wound never healed, after few days it started getting worse and he noticed some blood dripping on the floor last time when he noticed that his wound was getting worse from before, he was seen in the ER on Tuesday last week and was prescribed Keflex. His PCP started clindamycin on Tuesday he has received 3 doses so far. He went to wound care clinic today who recommended him to come to the hospital for further investigation and antibiotics. Patient is denying fever, nausea, vomiting, diarrhea he takes Tresiba 160 units a day along sliding scale, is denying pain in his foot. Diagnostic work-up in the ER revealed purulent cellulitis of plantar surface of left foot, CT was requested which did not show osteomyelitis or gas gangrene, I have requested ESR, CRP is high, mild leukocytosis he is afebrile no tachycardia tachypnea does not meet sepsis criteria. He has mild CECILE, received vancomycin and Zosyn in the ER Review of Systems Const: Denies: fever(s) Eyes: Denies: change in vision ENMT: Denies: throat pain Card: Denies: chest pain Resp: Denies: dyspnea GI: Denies: abdominal pain : Denies: flank pain Musc: Reports: limited range of motion and muscle cramps Skin/Breast: Reports: erythema, skin swelling, sores, new lesions, changing lesions, non-healing lesions and lesions Neuro: Denies: headache(s) Psych: Denies: anxiety Endo: Denies: polyuria Zev/Lymph: Denies: easy bruising All/Imm: Denies: urticaria Medications/Allergies Home Medications Medication Instructions Recorded Confirmed Last Taken Type atenolol 50 mg tablet 50 mg PO BID@08/28/19 10/02/2021 History lisinopril 40 mg tablet 40 mg PO DAILY@08/28/19 10/02/20 10/02/20 History nortriptyline 25 mg capsule 25 mg PO BEDTIME@199908/28/19 10/02/20 10/01/20 History gabapentin 300 mg capsule 300 mg PO TID #90 cap 12/12/19 10/02/20 10/02/20 Rx cholecalciferol (vitamin D3) 125 5,000 unit PO DAILY@08 cap 04/01/20 10/02/20 10/02/20 History mcg (5,000 unit) capsule furosemide 40 mg tablet 40 mg PO BID@ tab 04/01/20 10/02/20 10/02/20 History insulin degludec 100 unit/mL (3 160 unit SUBCUT BEDTIME ml 04/01/20 10/02/20 10/01/20 History mL) subcutaneous pen pantoprazole 40 mg tablet,delayed 40 mg PO DAILY@04/01/20 10/02/20 10/02/20 History release potassium chloride 20 mEq 20 meq PO BID@ tab 04/01/20 10/02/20 10/02/20 History tablet,extended release metformin 500 mg tablet 500 mg PO BID@05/20/20 10/02/20 10/02/20 History insulin aspart U-100 [Novolog See Rx Instructions .ROUTE 06/02/20 10/02/20 06/01/20 18:00 History U-100 Insulin aspart] .COMPLEX #0 clindamycin HCl 300 mg PO QID 10/02/20 10/02/20 10/02/20 History cyanocobalamin (vitamin B-12) 1,000 mcg PO DAILY@0800 10/02/20 10/02/20 10/02/20 History folic acid 1 mg PO DAILY@10/02/20 10/02/20 10/02/20 History iron 325 mg PO DAILY@10/02/20 10/02/20 10/02/20 History lactobacillus combination no.4 3,000 mmu cells PO DAILY@0800 10/02/20 10/02/20 10/02/20 History [Probiotic] semaglutide [Ozempic] 0.25 mg SUBCUT Q7D 10/02/20 10/02/20 09/29/20 History simvastatin 20 mg PO BEDTIME@199910/02/20 10/02/20 10/01/20 History Allergies Allergy/AdvReac Type Severity Reaction Status Date / Time No Known Allergies Allergy Verified 08/14/20 10:59 PFSH Acute PFSH: Medical History Charcot's joint of right foot Diabetes mellitus Hx of osteomyelitis Hypertension Microcytic anemia Morbid obesity with BMI of 40.0-44.9, adult Obstructive sleep apnea Venous ulcer Surgical History H/O foot surgery right foot History of right below knee amputation Hx of cholecystectomy Family History Family/Other Diabetes Hypertension Denies family history of CAD (coronary artery disease) Clotting disorder Dementia Hyperlipidemia Psychiatric illness Chronic kidney disease (CKD) Suicide Anesthesia complication Bleeding disorder Family history of premature coronary artery disease Lung disease Cancer Stroke Social History Smoking and tobacco status: former smoker Alcohol intake: never Current occupational status: employed Vitals/I&O/Wt Last Vital Signs Temp 98.0 F 10/02/20 12:27 Pulse 72 10/02/20 12:27 Resp 18 10/02/20 12:27 BP 128/73 10/02/20 12:27 Pulse Ox 100 10/02/20 12:27 Weight last 48 hrs Weight 129.727 kg Physical Exam Narrative: EXAM NARRATIVE: Middle-age male sitting comfortably in his bed saturating well on room air Morbidly obese male, appears more than stated age No active distress Right BKA Left foot plantar service purulent cellulitis with open wound, dorsum of foot with nonpurulent cellulitis hyperemia extending up to mid level of the tibia, no crepitation noticed, dorsalis pedis 1+ No signs of gangrene or ischemic ulcer No acute chest discomfort Abdomen soft nontender EOMI, PERRLA Awake alert oriented x3 GCS 15 Data : 10/02/20 13:38 10/02/20 13:38 Micro: Microbiology 10/02/20 14:24 Blood Culture - Preliminary Blood SPECIMEN COLLECTED 10/02/20 13:38 Blood Culture - Preliminary Blood SPECIMEN COLLECTED A&P Assessment and plan (1) Cellulitis: Status: Acute (2) Diabetes mellitus: Status: Acute (3) CECILE (acute kidney injury): Status: Acute Additional A&P Information Purulent cellulitis left foot plantar surface Requested ESR, noticed high CRP leukocytosis no signs of sepsis though Continue linezolid and Zosyn, this antibiotic regimen was chosen because of CECILE Requested blood cultures He will need wound debridement however CT foot did not reveal osteomyelitis or localized collection of abscess No signs of gas gangrene Skin temperature is warm, no active signs of ischemic ulcers, might benefit from vascular studies He has been following up with wound care clinic Considering history of BKA he will be considered high risk for worsening of cellulitis leading to osteomyelitis might benefit from long-term antibiotics at the time of discharge To rule out osteomyelitis consider MRI which is more sensitive, will request x-ray as well Suboptimal control type 2 diabetes Last A1c level 9 He takes very high dosage of insulin Tresiba 160 units I would use Lantus 120 units for now along sliding scale and consistent carb diet Acute kidney injury This seems secondary to poorly controlled type 2 diabetes and nephrotoxic agent Is a morbidly obese male with no active signs of fluid overload We will hold his lisinopril and Metformin Palpitations Continue atenolol No acute exacerbation Full code Consistent carb diet DVT prophylaxis Heparin Attestations Medical Necessity Statement*: Anticipating stay in the hospital more than 2 midnights currently requiring IV antibiotics however his clinical stay might prolong more than 2 midnights if his cellulitis is worsening because of poorly controlled diabetes and previous history of right BKA Time Spent in Patient Care: 40mins Coding Level of Care Code Acute Green End Department Supervisor for [facility] Diagnoses Cellulitis L03.90 Diabetes mellitus E11.9 CECILE (acute kidney injury) N17.9
[2020-10-02 16:16] LABS: Erythrocyte Sedimentation Rate 90 mm/hr (0-10)
[2020-10-02] MEDS: piperacillin-tazobactam 3.375 GM in sodium chloride 0.9% (plus) 50 ML IV (18:11)
[2020-10-02 18:18] VITALS: BP 147/92; PULSE 82; RESP 18; TEMP 36.7; O2SAT 98
[2020-10-02 18:45] LABS: Glucose Point of Care 232 mg/dL (70-110)
[2020-10-02] MEDS: FUROsemide 40 mg Tablet PO (18:49)
[2020-10-02] MEDS: atenolol 50 mg Tablet PO (18:49)
[2020-10-02] MEDS: heparin 5,000 unit/mL INJ 1 mL 5000 UNIT SUBCUT (18:50)
[2020-10-02] MEDS: potassium chloride ER 20 mEq Tablet PO (18:52)
[2020-10-02 18:57] VITALS: BP 146/94; PULSE 82; RESP 18; TEMP 37.3; O2SAT 98
[2020-10-02] MEDS: atorvastatin 40 mg Tablet 20 MG PO (20:20)
[2020-10-02] MEDS: linezolid premix 600 MG/300 ML PREMIX 300 MG IV (20:21)
[2020-10-02] MEDS: benzonatate 100 mg Capsule PO (20:21)
[2020-10-02] MEDS: gabapentin 300 mg Capsule PO (20:21)
[2020-10-02 21:17] LABS: Glucose Point of Care 317 mg/dL (70-110)
[2020-10-03] VITALS (7 sets, daily range): BP systolic 115–147; BP diastolic 69–85; PULSE 74–90; RESP 17–20; TEMP 36.8–37.9; O2SAT 92–97
[2020-10-03] MEDS: piperacillin-tazobactam 3.375 GM in sodium chloride 0.9% (plus) 50 ML IV ×3 (02:40→17:02)
[2020-10-03] MEDS: heparin 5,000 unit/mL INJ 1 mL 5000 UNIT SUBCUT ×3 (02:40→17:36)
--- NOTE | 2020-10-03 05:17 | PC.NURSE ---
Patient refusing to use ice packs this morning.
[2020-10-03 05:38] LABS: Basophils # 0.1 10^3/uL (0.0-0.1); Basophils % 0.5 %; Eosinophils # 0.3 10^3/uL (0.0-0.8); Eosinophils % 1.8 %; Hematocrit 36.4 % (42.0-52.0); Hemoglobin 11.4 g/dL (11.7-16.6); Lymphocytes # 1.7 10^3/uL (0.8-4.8); Mean Corpuscular HGB Conc 31.3 g/dL (30.0-36.0); Mean Corpuscular Hemoglobin 26.1 pg (28.0-34.0); Mean Corpuscular Volume 83.5 fL (80-94); Mean Platelet Volume 9.4 fL (7.4-10.4); Monocytes # 1.9 10^3/uL (0.2-0.9); Monocytes % 12.2 %; Neutrophils # 11.37 10^3/uL (1.8-7.7); Neutrophils % 72.5 %; Nucleated Red Blood Cells % 0 %; Platelet Count 458 10^3/cmm (130-400); Red Blood Count 4.36 10^6/uL (4.1-5.3); Red Cell Distribution Width 14.9 % (12.1-15.1); White Blood Count 15.7 10^3/uL (4.0-10.0)
[2020-10-03 05:53] LABS: Lactate (Lactic Acid level) 1.1 mmol/L (0.5-2.2)
[2020-10-03 05:55] LABS: Anion Gap 17.3 (5-19); Blood Urea Nitrogen 26 mg/dL (6-20); Calcium 9.1 mg/dL (8.5-10.5); Carbon Dioxide 24 mmol/L (22-29); Chloride 97 mmol/L (98-107); Glomerular Filtration Rate 48.8 mL/min (90-130); Glucose 120 mg/dL (65-115); Osmolality Calculated 284 mOsm/kg (285-295); Potassium 4.3 mmol/L (3.5-5.1); Sodium 134 mmol/L (136-145)
[2020-10-03 06:47] LABS: Glucose Point of Care 124 mg/dL (70-110)
[2020-10-03] MEDS: gabapentin 300 mg Capsule PO ×3 (08:22→20:25)
[2020-10-03] MEDS: pantoprazole DR 40 mg Tablet PO (08:22)
[2020-10-03] MEDS: sennosides-docusate Tablet 1 TAB PO (08:22)
[2020-10-03] MEDS: linezolid premix 600 MG/300 ML PREMIX 300 MG IV (08:22)
[2020-10-03] MEDS: folic acid 1 mg Tablet PO (08:22)
[2020-10-03] MEDS: ferrous sulfate EC 325 mg Tablet PO (08:23)
[2020-10-03] MEDS: atenolol 50 mg Tablet PO ×2 (08:30→17:02)
[2020-10-03] MEDS: FUROsemide 40 mg Tablet PO ×2 (08:30→17:02)
[2020-10-03] MEDS: potassium chloride ER 20 mEq Tablet PO ×2 (08:30→17:02)
[2020-10-03 11:42] LABS: Glucose Point of Care 294 mg/dL (70-110)
--- NOTE | 2020-10-03 13:10 | PC.CHAP ---
Pastoral Care Encounter/Spiritual Assessment Type of Contact [] Declined frame polisher visit [] Patient/Family/Request visit [] Outpatient visit [] Follow-up visit [] Physician referral [] Code/Alert [xx] Routine visit [] Staff referral [] Actively dying [] Patient sleeping [] Family support [] [] Out of room [] Palliative care [] [] Receiving care in room [] Pre-surgical visit [] Trauma [] Long length of stay [] ICU visit [] Other: Relational/Emotional Strength [xx] Patient feels connected with others/family/visitors/staff [] Distress [] Loneliness/isolation [] Abandonment Spirituality of Patient [xx] Person of Makenna [] Attends Voodoo of their Makenna [xx] Believes in Prayer [xx] Reads Bible or Alevism materials [] There are Spiritual issues to be addressed Office Clerk Assistant Interventions [xx] Prayer [xx] Active listening [xx] Non-anxious presence [] Spiritual/emotional support [] Crisis/trauma care [] Spiritual counseling [] Bereavement support [] Provided bereavement packet [xx] Provided Bible/devotional materials [] Provided toy/stuffed animal, coloring book to patient or family member [] Provided Communion [] Anointing/[place] [] Salvation [xx] Completed spiritual assessment [] Other: Impact on Illness or Injury [] Angry [] Fearful [] Anxious [] Often cries [] Exhaustion [] Unable to work [] Unable to attend christian [] Unable to walk/stand [] Unable to read [] Unable to drive [] Unable to eat/drink [] Unable to sleep [] Unable to be with family [] Patient intubated [] Other: Summary Patient stated he is doing much better. [employer] Daily [employer] devotional given to him. Time spent with patient 3 minutes
--- NOTE | 2020-10-03 15:25 | PM.PN ---
Subjective Subjective: Interval history: T-max 100.2 Fahrenheit at midnight. No acute overnight events. Hemodynamically stable. Medications: Reviewed: Yes Vitals/I&O/Wt Last Vital Signs Temp 99.5 F 10/03/20 15:09 Pulse 79 10/03/20 15:09 Resp 18 10/03/20 15:09 BP 147/79 10/03/20 15:09 Pulse Ox 92 10/03/20 15:09 10/03/20 10/03/20 10/03/20 06:59 14:59 22:59 Intake Total 100 / 750 590 / 590 Output Total 750 / 750 1150 / 1150 Balance -650 / 0 -560 / -560 Weight last 48 hrs Weight 129.727 kg Physical Exam Narrative: EXAM NARRATIVE: GEN: Awake, alert and oriented, no acute distress CVS: S1S2 N RS: CTA B/L Abd: Soft, nt/nd , bs+ WRAPPING MACHINE TENDER: no focal neuro deficits Data : 10/03/20 05:01 10/03/20 05:01 Micro: Microbiology 10/02/20 14:24 Blood Culture - Preliminary Blood NEGATIVE TO DATE 10/02/20 13:38 Blood Culture - Preliminary Blood NEGATIVE TO DATE A&P Assessment and plan (1) Cellulitis: Status: Acute Qualifiers: Laterality: left Site of cellulitis: extremity Site of cellulitis of extremity: lower extremity Qualified Code(s): L03.116 - Cellulitis of left lower limb (2) Diabetes mellitus: Status: Acute Qualifiers: Diabetes mellitus complication detail: with polyneuropathy Diabetes mellitus complication status: with neurologic complications Diabetes mellitus penitentiary insulin use: with penitentiary use Diabetes mellitus type: type 2 Qualified Code(s): E11.42 - Type 2 diabetes mellitus with diabetic polyneuropathy; Z79.4 - termite treater helper (current) use of insulin (3) CECILE (acute kidney injury): Status: Acute Additional A&P Information Purulent cellulitis left foot plantar surface high CRP leukocytosis no signs of sepsis Continue iv abx, continue zosyn, d/c linezolid, strat renally dosed vancomycin blood cultures thus far negative He may need wound debridement however CT foot did not reveal osteomyelitis or localized collection of abscess No signs of gas gangrene Wound care consult willy available over the weekday LE venous duplex negative for DVT, left side popliteal cyst noted, last FLORENCE from 01/2020 with normal FLORENCE left side. Continue dressing per wound care instructions with polymem ag and betadine. Suboptimal control type 2 diabetes Last A1c level 9 He takes very high dosage of insulin Tresiba 160 units I would use Lantus 120 units for now along sliding scale and consistent carb diet Acute kidney injury This seems secondary to poorly controlled type 2 diabetes and Lisinopril Is a morbidly obese male with no active signs of fluid overload We will hold his lisinopril and Metformin, encourage po intake Palpitations Continue atenolol No acute exacerbation Full code Consistent carb diet DVT prophylaxis Heparin Attestations Medical Necessity Statement*: need for iv abx for diabetic foot infection Coding Level of Care Code Acute Crimping Machine Operator For Metal for Chg Fwd Diagnoses Cellulitis L03.116 Laterality: left Site of cellulitis: extremity Site of cellulitis of extremity: lower extremity Diabetes mellitus E11.42; Z79.4 Diabetes mellitus complication detail: with polyneuropathy Diabetes mellitus complication status: with neurologic complications Diabetes mellitus penitentiary insulin use: with penitentiary use Diabetes mellitus type: type 2 CECILE (acute kidney injury) N17.9
[2020-10-03] MEDS: benzonatate 100 mg Capsule PO (15:28)
[2020-10-03] MEDS: vancomycin 1,500 MG/300 ML PIGGYBACK 200 MG IV (16:17)
[2020-10-03 16:42] LABS: SARS Covid-2 Antigen Negative (Negative)
[2020-10-03 17:35] LABS: Glucose Point of Care 302 mg/dL (70-110)
--- NOTE | 2020-10-03 18:10 | USCV_ITS ---
Jayy Galeano Age: 55 Gender: M : 1965 Exam Date: 10/03/2020 06:17 Ordering Phys: Mary Vazquez MD Technologist: Yvette Del Toro Exam Location: [facility] – [place] Indication: HYPEREMIA AND CALF TENDERNESS HISTORY: Lower extremity pain. PROCEDURES: Venous duplex imaging was performed in only the left lower extremity. The following venous structures were evaluated: common femoral vein, profunda vein, proximal portion of the greater saphenous vein, superficial femoral vein, and the popliteal vein. In addition, the posterior tibial veins were evaluated. Serial compression, augmentation maneuvers, and spectral Doppler flow evaluation were performed. FINDINGS: No evidence of DVT seen in any vessel visualized at this time. LT POP SUBRAMANIAN'S CYST SEEN LT GROIN LYMPH NODE SEEN CONCLUSIONS No evidence of left lower extremity DVT. Left popliteal cyst 4.9 x 3.2 cm Krishna Campoverde MD (Electronically Signed) Final Date: 03 October 2020 08:43 S
[2020-10-03] MEDS: atorvastatin 40 mg Tablet 20 MG PO (20:25)
[2020-10-03 20:52] LABS: Glucose Point of Care 253 mg/dL (70-110)
[2020-10-04] VITALS (7 sets, daily range): BP systolic 129–181; BP diastolic 83–95; PULSE 75–79; RESP 18–20; TEMP 36.4–37.2; O2SAT 92–100
[2020-10-04] MEDS: heparin 5,000 unit/mL INJ 1 mL 5000 UNIT SUBCUT ×3 (02:55→17:56)
[2020-10-04] MEDS: piperacillin-tazobactam 3.375 GM in sodium chloride 0.9% (plus) 50 ML IV ×3 (02:56→20:13)
[2020-10-04] MEDS: vancomycin 1,500 MG/300 ML PIGGYBACK 200 MG IV ×2 (06:04→17:18)
[2020-10-04 06:56] LABS: Basophils # 0.1 10^3/uL (0.0-0.1); Basophils % 0.8 %; Eosinophils # 0.3 10^3/uL (0.0-0.8); Eosinophils % 2.4 %; Hematocrit 36.1 % (42.0-52.0); Hemoglobin 11.1 g/dL (11.7-16.6); Lymphocytes # 1.9 10^3/uL (0.8-4.8); Mean Corpuscular HGB Conc 30.7 g/dL (30.0-36.0); Mean Corpuscular Hemoglobin 26.4 pg (28.0-34.0); Mean Platelet Volume 9.4 fL (7.4-10.4); Monocytes # 1.3 10^3/uL (0.2-0.9); Monocytes % 10.6 %; Neutrophils % 67.7 %; Nucleated Red Blood Cells % 0 %; Platelet Count 490 10^3/cmm (130-400); Red Cell Distribution Width 14.9 % (12.1-15.1)
[2020-10-04 07:06] LABS: Glucose Point of Care 123 mg/dL (70-110)
[2020-10-04 07:13] LABS: Alanine Aminotransferase 23 U/L (0-41); Alkaline Phosphatase 117 IU/L (40-130); Aspartate Amino Transferase 16 U/L (0-40); Blood Urea Nitrogen 23 mg/dL (6-20); Calcium 9.2 mg/dL (8.5-10.5); Carbon Dioxide 23 mmol/L (22-29); Chloride 101 mmol/L (98-107); Globulin 3.9 g/dL (1.3-4.6); Glomerular Filtration Rate 63.1 mL/min (90-130); Glucose 113 mg/dL (65-115); Osmolality Calculated 290 mOsm/kg (285-295); Sodium 138 mmol/L (136-145); Total Bilirubin 0.5 mg/dL (0.15-1.2); Total Protein 6.9 g/dL (6.6-8.7)
[2020-10-04] MEDS: sennosides-docusate Tablet 1 TAB PO (08:12)
[2020-10-04] MEDS: pantoprazole DR 40 mg Tablet PO (08:13)
[2020-10-04] MEDS: ferrous sulfate EC 325 mg Tablet PO (08:13)
[2020-10-04] MEDS: gabapentin 300 mg Capsule PO ×3 (08:13→20:15)
[2020-10-04] MEDS: potassium chloride ER 20 mEq Tablet PO ×2 (08:13→17:18)
[2020-10-04] MEDS: atenolol 50 mg Tablet PO ×2 (08:13→17:18)
[2020-10-04] MEDS: FUROsemide 40 mg Tablet PO ×2 (08:13→17:18)
[2020-10-04] MEDS: folic acid 1 mg Tablet PO (08:13)
[2020-10-04 11:54] LABS: Glucose Point of Care 229 mg/dL (70-110)
[2020-10-04] MEDS: ondansetron 2 mg/ML SDV 2 mL 4 MG IV ×3 (12:42→20:17)
--- NOTE | 2020-10-04 13:50 | PM.PN ---
Subjective Subjective: Interval history: Patient seen lying in bed with wet cold cloth over forehead. Patient admits to being nauseous all through the night. Admitted to emesis after breakfast this morning. He was just given a dose of Zofran with minimal results. Patient denies having the diagnosis of gastroparesis. He admits to occasional bouts of nausea and vomiting. Medications: Reviewed: Yes Vitals/I&O/Wt Last Vital Signs Temp 98.7 F 10/04/20 11:44 Pulse 76 10/04/20 11:44 Resp 18 10/04/20 11:44 BP 158/85 10/04/20 11:44 Pulse Ox 92 10/04/20 11:44 10/03/20 10/04/20 10/04/20 22:59 06:59 14:59 Intake Total 520 / 1110 50 / 1160 660 / 660 Output Total 0 / 1150 850 / 2000 800 / 800 Balance 520 / -40 -800 / -840 -140 / -140 Physical Exam Narrative: EXAM NARRATIVE: General: Patient appears his stated age of 55 he is obese in mild acute distress due to nausea. Heart: Regular rate and rhythm normal S1-S2 without murmurs clicks gallops or rubs Lungs: Clear to auscultation without wheezes rales or rhonchi Abdomen: Obese soft nontender nondistended normal bowel sounds Extremities: Right BKA. Left foot wrapped-RN states 2 areas of purulent drainage between fourth and fifth toe and mid dorsal foot. The patient is mildly warm to touch with mild erythema up to half of calf area. Per RN who had him yesterday this is improved. Data : 10/04/20 06:13 10/04/20 06:13 Micro: Microbiology 10/02/20 14:24 Blood Culture - Preliminary Blood NEGATIVE TO DATE 10/02/20 13:38 Blood Culture - Preliminary Blood NEGATIVE TO DATE Other CT: Radiologist's impression: CT right foot. No osteo A&P Assessment and plan (1) Cellulitis: Zosyn and Vancomycin Status: Acute Qualifiers: Laterality: left Site of cellulitis: extremity Site of cellulitis of extremity: lower extremity Qualified Code(s): L03.116 - Cellulitis of left lower limb (2) Venous ulcer: Will need consult with assistant manager quality management or other surgeon to consider debridement Status: Acute (3) Diabetic peripheral neuropathy associated with type 2 diabetes mellitus: on neurontin Status: Acute (4) Diabetes mellitus: Pt states his BS are now controlled with last HgbA1C of 7%. Blood glucose here controlled although accu checks are higher. Status: Acute Qualifiers: Diabetes mellitus complication detail: with polyneuropathy Diabetes mellitus complication status: with neurologic complications Diabetes mellitus half-way insulin use: with half-way use Diabetes mellitus type: type 2 Qualified Code(s): E11.42 - Type 2 diabetes mellitus with diabetic polyneuropathy; Z79.4 - supervisor intermediates (current) use of insulin (5) Left foot infection: as above Status: Acute (6) Nausea and vomiting: schedule zofran ac meals and qhs. 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
[2020-10-04] MEDS: metoclopramide 5 mg/mL SDV 2 mL 10 MG IVP ×2 (14:49→20:17)
[2020-10-04 16:51] LABS: Glucose Point of Care 210 mg/dL (70-110)
[2020-10-04] MEDS: atorvastatin 40 mg Tablet 20 MG PO (20:14)
[2020-10-04 20:53] LABS: Glucose Point of Care 226 mg/dL (70-110)
[2020-10-05] MEDS: heparin 5,000 unit/mL INJ 1 mL 5000 UNIT SUBCUT ×3 (01:35→17:49)
[2020-10-05] MEDS: metoclopramide 5 mg/mL SDV 2 mL 10 MG IVP ×4 (01:35→18:35)
[2020-10-05] MEDS: piperacillin-tazobactam 3.375 GM in sodium chloride 0.9% (plus) 50 ML IV ×3 (02:38→18:35)
[2020-10-05 04:00] VITALS: BP 154/90; PULSE 68; RESP 18; TEMP 36.5; O2SAT 97
[2020-10-05] MEDS: vancomycin 1,500 MG/300 ML PIGGYBACK 200 MG IV ×2 (04:24→17:01)
[2020-10-05] MEDS: ondansetron 2 mg/ML SDV 2 mL 4 MG IV ×4 (06:03→20:56)
[2020-10-05 06:49] LABS: Glucose Point of Care 248 mg/dL (70-110)
[2020-10-05 08:00] VITALS: BP 175/96; PULSE 66; RESP 18; TEMP 36.6; O2SAT 94
[2020-10-05] MEDS: folic acid 1 mg Tablet PO (09:05)
[2020-10-05] MEDS: atenolol 50 mg Tablet PO ×2 (09:05→17:03)
[2020-10-05] MEDS: sennosides-docusate Tablet 1 TAB PO (09:05)
[2020-10-05] MEDS: pantoprazole DR 40 mg Tablet PO (09:05)
[2020-10-05] MEDS: FUROsemide 40 mg Tablet PO ×2 (09:05→17:02)
[2020-10-05] MEDS: ferrous sulfate EC 325 mg Tablet PO (09:05)
[2020-10-05] MEDS: potassium chloride ER 20 mEq Tablet PO ×2 (09:05→17:02)
[2020-10-05] MEDS: gabapentin 300 mg Capsule PO ×3 (09:05→20:38)
[2020-10-05 10:55] VITALS: BP 154/92; PULSE 69; RESP 18; TEMP 36.9; O2SAT 96
[2020-10-05 11:49] LABS: Glucose Point of Care 493 mg/dL (70-110)
[2020-10-05 11:49] LABS: Glucose Point of Care 538 mg/dL (70-110)
--- NOTE | 2020-10-05 15:22 | P.PN_ITS ---
Subjective Subjective: Interval history: Patient seen lying in bed with girlfriend. nausea greatly improved. able to eat today. Infact had a plate of fruit. Medications: Reviewed: Yes Vitals/I&O/Wt Last Vital Signs Temp 98.4 F 10/05/20 10:55 Pulse 69 10/05/20 10:55 Resp 18 10/05/20 10:55 BP 154/92 10/05/20 10:55 Pulse Ox 96 10/05/20 10:55 10/05/20 10/05/20 10/05/20 06:59 14:59 22:59 Intake Total 50 / 1060 1190 / 1190 Output Total 1275 / 2475 Balance -1225 / -1415 1190 / 1190 Physical Exam Narrative: EXAM NARRATIVE: General: Patient appears his stated age of 55 he is obese NAD. Heart: Regular rate and rhythm normal S1-S2 without murmurs clicks gallops or rubs Lungs: Clear to auscultation without wheezes rales or rhonchi Abdomen: Obese soft nontender nondistended normal bowel sounds Extremities: Right BKA. Left foot wrapped-RN states [address] baum between fourth and fifth toe and mid dorsal foot. Current wrap is saturated. The patient is mildly warm to touch with mild erythema with marked improvement just above ankle. . Erythema is improved too. Data : 10/04/20 06:13 10/04/20 06:13 A&P Assessment and plan (1) Cellulitis: Continue Zosyn and Vancomycin Purulent cellulitis left foot plantar surface high CRP leukocytosis no signs of sepsis n blood cultures thus far negative He may need wound debridement however CT foot did not reveal osteomyelitis or localized collection of abscess No signs of gas gangrene LE venous duplex negative for DVT, left side popliteal cyst noted, last FLORENCE from 01/2020 with normal FLORENCE left side. Continue dressing Status: Acute Qualifiers: Laterality: left Site of cellulitis: extremity Site of cellulitis of extremity: lower extremity Qualified Code(s): L03.116 - Cellulitis of left lower limb (2) Venous ulcer: Please consult Dr. Tao in am for consideration of debridement? Status: Acute (3) Diabetic peripheral neuropathy associated with type 2 diabetes mellitus: on neurontin Status: Acute (4) Diabetes mellitus: Pt states his BS are elevated. last HgbA1C of 7%. he says he runs low 200's at home. However, we do not have his home meds ordered.? Suboptimal control type 2 diabetes Last A1c level was 9? Long talk about Keto diet which I recommend for him. He clearly isn't interested. He is very picky and eats a lot of carbs. 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 Add reglan lizzy q6H. would maintain. Likely combination of abx side effects and gastroparesis. Status: Acute Additional A&P Information Acute kidney injury This seems secondary to poorly controlled type 2 diabetes and Lisinopril Is a morbidly obese male with no active signs of fluid overload We will hold his lisinopril and Metformin, encourage po intake Palpitations Continue atenolol No acute exacerbation Full code Consistent carb diet DVT prophylaxis Heparin Attestations Medical Necessity Statement*: continued iv antibiotics for foot infection that is still draining pus Coding Level of Care Code Acute Recycle Driver for Chg Fwd Diagnoses Cellulitis L03.116 Laterality: left Site of cellulitis: extremity Site of cellulitis of extremity: lower extremity Venous ulcer I83.009; L97.909 Diabetic peripheral neuropathy associated with type 2 diabetes mellitus E11.42 Diabetes mellitus E11.42; Z79.4 Diabetes mellitus complication detail: with polyneuropathy Diabetes mellitus complication status: with neurologic complications Diabetes mellitus fci insulin use: with marine oil terminal superintendent use Diabetes mellitus type: type 2 Left foot infection L08.9 Nausea and vomiting R11.2
[2020-10-05 15:57] VITALS: BP 187/97; PULSE 68; RESP 18; TEMP 36.8; O2SAT 96
[2020-10-05 16:50] LABS: Glucose Point of Care 278 mg/dL (70-110)
[2020-10-05 20:00] VITALS: BP 168/99; PULSE 65; RESP 18; TEMP 36.3; O2SAT 96
[2020-10-05] MEDS: atorvastatin 40 mg Tablet 20 MG PO (20:38)
[2020-10-05 20:42] LABS: Glucose Point of Care 237 mg/dL (70-110)
[2020-10-06] VITALS: BP 120/67; PULSE 68; RESP 18; TEMP 36.6; O2SAT 96
[2020-10-06] MEDS: metoclopramide 5 mg/mL SDV 2 mL 10 MG IVP ×4 (01:40→20:51)
[2020-10-06] MEDS: heparin 5,000 unit/mL INJ 1 mL 5000 UNIT SUBCUT ×3 (01:41→17:39)
[2020-10-06] MEDS: piperacillin-tazobactam 3.375 GM in sodium chloride 0.9% (plus) 50 ML IV ×3 (02:36→20:48)
[2020-10-06 04:00] VITALS: BP 126/79; PULSE 66; RESP 20; TEMP 36.4; O2SAT 99
[2020-10-06] MEDS: vancomycin 1,500 MG/300 ML PIGGYBACK 200 MG IV ×2 (04:50→17:40)
[2020-10-06] MEDS: ondansetron 2 mg/ML SDV 2 mL 4 MG IV ×4 (05:55→23:55)
[2020-10-06 07:22] LABS: Glucose Point of Care 139 mg/dL (70-110)
[2020-10-06 07:52] VITALS: BP 150/35; PULSE 64; RESP 17; TEMP 36.6; O2SAT 92
[2020-10-06] MEDS: pantoprazole DR 40 mg Tablet PO (08:25)
[2020-10-06] MEDS: folic acid 1 mg Tablet PO (08:25)
[2020-10-06] MEDS: ferrous sulfate EC 325 mg Tablet PO (08:25)
[2020-10-06] MEDS: potassium chloride ER 20 mEq Tablet PO ×2 (08:25→17:39)
[2020-10-06] MEDS: sennosides-docusate Tablet 1 TAB PO (08:25)
[2020-10-06] MEDS: FUROsemide 40 mg Tablet PO ×2 (08:25→17:40)
[2020-10-06] MEDS: gabapentin 300 mg Capsule PO ×3 (08:39→20:49)
[2020-10-06] MEDS: atenolol 50 mg Tablet PO ×2 (08:39→17:39)
[2020-10-06 11:04] LABS: Glucose Point of Care 307 mg/dL (70-110)
[2020-10-06] MEDS: cyanocobalamin 1,000 mcg Tablet 1000 MCG PO (11:16)
[2020-10-06] MEDS: cholecalciferol (vitamin D3) 5,000 unit Tablet 5000 UNIT PO (11:16)
[2020-10-06 11:56] VITALS: BP 145/60; PULSE 62; RESP 19; TEMP 37.3; O2SAT 95
--- NOTE | 2020-10-06 12:31 | PM.CONSULT ---
Providers/Reason For Consult Consulting Physican/Specialty*: Uzair Tao DPM Reason for Consult*: Left foot infection Attending Physician: Lesly Sevilla MD Primary Care Provider: MARCOS Chopra History of Present Illness History of Present Illness Jayy Galeano is a 55 year old diabetic male admitted to the hospital service to emergency department for left foot puncture wound. Patient reports the first week of September and is unsure of the exact date that he stepped on a small nail that punctured his left foot this was removed by his significant other Eden. He was seen in the emergency department on September 26, I do not see x-rays on file or wound culture, patient was prescribed Keflex and was actively being seen at wound care at that time for unrelated issue. Patient presented to his primary care provider on September 30 due to concern of increased redness and swelling and was prescribed clindamycin he states that he took 3 doses and presented to the emergency department on October 02 subsequently admitted to the hospital service. CT scan performed on October 02 per radiology read as negative for osteomyelitis. Blood cultures negative to date, venous duplex on October 03 - for DVT. A1c most recent on file June 02, 2020 9.0. Patient receiving empiric IV antibiotics vancomycin and Zosyn at this time while inpatient. History of below-knee amputation to the right lower extremity June 02, 2020, patient reports having recently healed the amputation stump and is currently waiting to be fitted for a prosthesis. Review of Systems General: Reports: 10 or more systems reviewed and unremarkable except in HPI and below Const: Denies: fever(s) or chills Card: Denies: chest pain or palpitations Resp: Denies: productive cough GI: Denies: abdominal pain, nausea or vomiting : Denies: flank pain Musc: Reports: extremity swelling, joint pain, joint stiffness, limited range of motion and deformity Skin/Breast: Reports: erythema, skin tenderness, skin swelling, sores, nail changes and change in hair Neuro: Reports: numbness in extremities, sensory changes and difficulty walking Psych: Denies: suicidal ideation Zev/Lymph: Denies: easy bruising Meds/Allergies Home Medications and Allergies Home Medications Medication Instructions Recorded Confirmed Last Taken Type atenolol 50 mg tablet 50 mg PO BID@08/28/19 10/02/20 10/02/20 History lisinopril 40 mg tablet 40 mg PO DAILY@08/28/19 10/02/20 10/02/20 History nortriptyline 25 mg capsule 25 mg PO BEDTIME@199908/28/19 10/02/20 10/01/20 History gabapentin 300 mg capsule 300 mg PO TID #90 cap 12/12/19 10/02/20 10/02/20 Rx cholecalciferol (vitamin D3) 125 5,000 unit PO DAILY@0800 cap 04/01/20 10/02/20 10/02/20 History mcg (5,000 unit) capsule furosemide 40 mg tablet 40 mg PO BID@ tab 04/01/20 10/02/20 10/02/20 History insulin degludec 100 unit/mL (3 160 unit SUBCUT BEDTIME ml 04/01/20 10/02/20 10/01/20 History mL) subcutaneous pen pantoprazole 40 mg tablet,delayed 40 mg PO DAILY@04/01/20 10/02/20 10/02/20 History release potassium chloride 20 mEq 20 meq PO BID@ tab 04/01/20 10/02/20 10/02/20 History tablet,extended release metformin 500 mg tablet 500 mg PO BID@05/20/20 10/02/20 10/02/20 History insulin aspart U-100 [Novolog See Rx Instructions .ROUTE 06/02/20 10/02/20 06/01/20 18:00 History U-100 Insulin aspart] .COMPLEX #0 clindamycin HCl 300 mg PO QID 10/02/20 10/02/20 10/02/20 History cyanocobalamin (vitamin B-12) 1,000 mcg PO DAILY@79910/02/20 10/02/20 10/02/20 History folic acid 1 mg PO DAILY@10/02/20 10/02/20 10/02/20 History iron 325 mg PO DAILY@10/02/20 10/02/20 10/02/20 History lactobacillus combination no.4 3,000 mmu cells PO DAILY@79910/02/20 10/02/20 10/02/20 History [Probiotic] semaglutide [Ozempic] 0.25 mg SUBCUT Q7D 10/02/20 10/02/20 09/29/20 History simvastatin 20 mg PO BEDTIME@199910/02/20 10/02/20 10/01/20 History Allergies Allergy/AdvReac Type Severity Reaction Status Date / Time No Known Allergies Allergy Verified 08/14/20 10:59 Current Medications Current Medications Generic Name Dose Route Start Last Admin Trade Name Freq PRN Reason Stop Dose Admin Atenolol 50 mg 10/02/20 18:10 10/06/20 08:39 Atenolol 50 Mg Tablet PO 50 mg BID@ [facility] Administration Atorvastatin Calcium 20 mg 10/02/20 20:00 10/05/20 20:38 Atorvastatin 40 Mg Tablet PO 20 mg BEDTIME@1999 [facility] Administration Benzonatate 100 mg 10/02/20 19:02 10/03/20 15:28 Benzonatate 100 Mg Capsule PO 100 mg TID PRN Administration COUGH Cyanocobalamin 1,000 mcg 10/06/20 12:00 10/06/20 11:16 Cyanocobalamin 1,000 Mcg Tablet PO 1,000 mcg DAILY@1200 [facility] Administration Ferrous Sulfate 325 mg 10/03/20 08:00 10/06/20 08:25 Ferrous Sulfate Ec 325 Mg Tablet PO 325 mg DAILY@08 [facility] Administration Folic Acid 1 mg 10/03/20 08:00 10/06/20 08:25 Folic Acid 1 Mg Tablet PO 1 mg DAILY@08 [facility] Administration Furosemide 40 mg 10/02/20 18:10 10/06/20 08:25 Furosemide 40 Mg Tablet PO 40 mg BID@ [facility] Administration Gabapentin 300 mg 10/02/20 21:00 10/06/20 08:39 Gabapentin 300 Mg Capsule PO 300 mg TID [facility] Administration Heparin Sodium (Beef Lung) 5,000 unit 10/02/20 18:30 10/06/20 11:16 Heparin 5,000 Unit/Ml Inj 1 Ml SUBCUT 5,000 unit Q8H [facility] Administration Vancomycin/PEG/NADA/Lysine/Water 1,500 mg in 300 mls @ 200 mls/hr 10/03/20 17:00 10/06/20 07:05 Vancocin IV Infused Q12H [facility] Infusion Piperacillin Sod/Tazobactam 50 mls @ 12.5 mls/hr 10/04/20 19:30 10/06/20 11:15 Sod 3.375 gm/ Sodium Chloride IV 12.5 mls/hr Q8H [facility] Administration Protocol Insulin Aspart 0 unit 10/02/20 18:10 10/06/20 11:16 Insulin Aspart 100 Unit/1 Ml SUBCUT 12 unit WM&BEDTIME [facility] Administration Protocol Metoclopramide HCl 10 mg 10/04/20 13:45 10/06/20 08:25 Metoclopramide 5 Mg/Ml Sdv 2 Ml IVP 10 mg Q6H [facility] Administration Ondansetron HCl 4 mg 10/04/20 17:00 10/06/20 11:16 Ondansetron 2 Mg/Ml Sdv 2 Ml IV 4 mg AC&BEDTIME [facility] Administration Pantoprazole Sodium 40 mg 10/03/20 08:00 10/06/20 08:[address] 40 Mg Tablet PO 40 mg DAILY@08 [facility] Administration Potassium Chloride 20 meq 10/02/20 18:30 10/06/20 08:25 Potassium Chloride Er 20 Meq Tablet PO 20 meq BID@08,18 [facility] Administration Senna/Docusate Sodium 1 tab 10/03/20 09:00 10/06/20 08:25 Sennosides-Docusate Tablet PO 1 tab DAILY [facility] Administration Vitamin D 5,000 unit 10/06/20 12:00 10/06/20 11:16 Cholecalciferol (Vitamin D3) 5,000 Unit Tablet PO 5,000 unit DAILY@1200 [facility] Administration PFSH Acute PFSH: Medical History Charcot's joint of right foot Diabetes mellitus Hx of osteomyelitis Hypertension Microcytic anemia Morbid obesity with BMI of 40.0-44.9, adult Obstructive sleep apnea Venous ulcer Surgical History H/O foot surgery right foot History of right below knee amputation Hx of cholecystectomy Family History Family/Other Diabetes Hypertension Denies family history of CAD (coronary artery disease) Clotting disorder Dementia Hyperlipidemia Psychiatric illness Chronic kidney disease (CKD) Suicide Anesthesia complication Bleeding disorder Family history of premature coronary artery disease Lung disease Cancer Stroke Social History Smoking and tobacco status: former smoker Alcohol intake: never Current occupational status: employed Vitals/I&O/Wt Last Vital Signs Temp 99.1 F 10/06/20 11:56 Pulse 62 10/06/20 11:56 Resp 19 H 10/06/20 11:56 BP 145/60 10/06/20 11:56 Pulse Ox 95 10/06/20 11:56 10/05/20 10/06/20 10/06/20 22:59 06:59 14:59 Intake Total 640 / 1830 580 / 580 Output Total 0 / 0 1150 / 1150 300 / 300 Balance 640 / 1830 -1150 / 680 280 / 280 Physical Exam Narrative: EXAM NARRATIVE: GENERAL: Patient is alert and oriented ?3 and in no acute distress. The following is a focused left lower extremity exam. VASCULAR: Dorsalis pedis and posterior tibial arteries palpable . Capillary refill time less than 3 seconds to the distal hallux and fifth toe left foot. Calf is supple and nontender proximally and distally. Pitting edema of the left lower extremity. NEUROLOGICAL: Protective sensation intact 0/10 sites, tested with [place] Steve monofilament to bilateral feet. DERMATOLOGICAL: Puncture wound at the left lateral forefoot measures 5 mm x 5 mm and probes 5 cm through and through into the left fourth webspacethe the wound probes through and through localized erythema without proximal lymphangitic streaking beyond/proximal to the left midfoot. Serosanguineous drainage. Dry skin and dystrophic nails x5 on the left foot. MUSCULOSKELETAL: No pain with debridement, palpation or probing secondary to neuropathy. Hammertoe deformity of toes 2 through 5 on the left foot. Muscle strength 5/5 in all 3 cardinal planes left foot. No pain with posterior calf squeeze of the left leg. History of [id number] amputation of the right lower extremity. A&P Assessment and plan (1) Diabetic peripheral neuropathy associated with type 2 diabetes mellitus: Status: Acute (2) Puncture wound of foot, left: Status: Acute Qualifiers: Encounter type: initial encounter Qualified Code(s): S91.332A - Puncture wound without foreign body, left foot, initial encounter (3) Non-pressure chronic ulcer of other part of left foot with necrosis of muscle: Status: Acute Mr. Galeano is a 55 year old diabetic male with approx 2.5 week old puncture wound left foot probes plantar to dorsal through and through left 4th interspace with localized cellulitis and devitalized tissue down to muscle and deep fascia. He failed outpatient abx of Keflex and clindamycin. I was consulted today 10/06 to eval the left foot wound. CT and XR of left foot per radiologist read is negative for osteomyelitis, gas or foreign body. Pt presented with leukocytosis and ESR of 90 and CRP of 280.1. Blood cultures negative. I expressed my concern of serious underlying soft tissue infection with the patient which should be treated with surgical debridemnt and antibiotics and woundcare f/u at discharge. I explained to Mr Froylan that this infection puts him at risk for partial amputation of his left foot. He recently underwent BKA to the right due to charcot and nonhealing ulcer with infection. He is concerned that he may loose his left foot and would like to take all steps to try to preserve his left limb. Recommended: -Incision and debridment left foot tomorrow am, NPO at midnight, procedure scheduled 7:00am -Heel touch left foot for transfers at this time -Empiric abx per hospitalist, will obtain deep tissue cx intra-operatively tomorrow and may narrow if cultures yield further info per infectious disease. -Performed packing and dressing of left foot, plan on mid incision juno drain after debridement tomorrow. -Recommend wound care referral for left foot wound f/u after discharge. Podiatry will follow, appreciate consult and opportunity to participate in patients care. Dr Tao cell [phone] Consult Attestations Medical Necessity Statement: left foot infection Coding Level of Care Code Acute Toe Lining Closer for [facility] Fwd Diagnoses Diabetic peripheral neuropathy associated with type 2 diabetes mellitus E11.42 Puncture wound of foot, left S91.332A Encounter type: initial encounter Non-pressure chronic ulcer of other part of left foot with necrosis of muscle L97.523
--- NOTE | 2020-10-06 12:32 | XRR_ITS ---
PROCEDURE INFORMATION: Exam: XR Left Foot Exam date and time: 10/06/2020 12:46 PM Age: 55 years old Clinical indication: Condition or disease; Patient HX: Infection to little toe; Additional info: Puncture wound TECHNIQUE: Imaging protocol: XR Left foot. Views: 3 or more views. COMPARISON: CT foot LT wo con* [id number] 10/02/2020 2:58 PM FINDINGS: Bones/joints: No fracture or other acute osseous abnormality. No acute or chronic joint abnormality demonstrated. Soft tissues: Soft tissue swelling of the distal forefoot and the 5th toe. No radiopaque foreign body or abnormal air noted in the soft tissues. XR/XR foot LT min 3V* [id number] IMPRESSION: 1. Soft tissue swelling of the distal forefoot and the 5th toe. No radiopaque foreign body or abnormal air noted in the soft tissues. 2. No radiographic findings of osteomyelitis.
--- NOTE | 2020-10-06 13:36 | PC.NURSE ---
patient scheduled for surgery tomorrow. 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
--- NOTE | 2020-10-06 14:21 | PM.PN ---
Subjective Subjective: Interval history: Febrile last 24 hours, hemodynamically stable, cellulitis over the cough is improving, however his foot still with significant changes. Podiatry consult placed with Dr. Tao to assess for debridement. Medications: Reviewed: Yes Vitals/I&O/Wt Last Vital Signs Temp 99.1 F 10/06/20 11:56 Pulse 62 10/06/20 11:56 Resp 19 H 10/06/20 11:56 BP 145/60 10/06/20 11:56 Pulse Ox 95 10/06/20 11:56 10/05/20 10/06/20 10/06/20 22:59 06:59 14:59 Intake Total 640 / 1830 580 / 580 Output Total 0 / 0 1150 / 1150 300 / 300 Balance 640 / 1830 -1150 / 680 280 / 280 Physical Exam Narrative: EXAM NARRATIVE: GEN: Awake, alert and oriented, no acute distress CVS: S1S2 N RS: CTA B/L Abd: Soft, nt/nd , bs+ OPTICAL EFFECTS CAMERA OPERATOR: no focal neuro deficits Data : 10/04/20 06:13 10/04/20 06:13 A&P Assessment and plan (1) Cellulitis: Continue Zosyn and Vancomycin Purulent cellulitis left foot plantar surface high CRP leukocytosis blood cultures thus far negative He will likely need i&D/debridement for source control ; consult with Dr. Goodman VALENCIA venous duplex negative for DVT, left side popliteal cyst noted, last FLORENCE from 01/2020 with normal FLORENCE left side. 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 Add reglan lizzy q6H. would maintain. Likely combination of abx side effects and gastroparesis. Status: Acute Additional A&P Information Acute kidney injury This seems secondary to poorly controlled type 2 diabetes and Lisinopril Is a morbidly obese male with no active signs of fluid overload We will hold his lisinopril and Metformin, encourage po intake Palpitations Continue atenolol No acute exacerbation Full code Consistent carb diet DVT prophylaxis Heparin Attestations Medical Necessity Statement*: need for iv abx, podiatry consult, will likely need debridement Coding Level of Care Code Acute Electrical Prospector for g Fwd Diagnoses Cellulitis L03.116 Laterality: left Site of cellulitis: extremity Site of cellulitis of extremity: lower extremity Venous ulcer I83.009; L97.909 Diabetic peripheral neuropathy associated with type 2 diabetes mellitus E11.42 Diabetes mellitus E11.42; Z79.4 Diabetes mellitus complication detail: with polyneuropathy Diabetes mellitus complication status: with neurologic complications Diabetes mellitus halfway insulin use: with superintendent marine oil terminal use Diabetes mellitus type: type 2 Left foot infection L08.9 Nausea and vomiting R11.2
--- NOTE | 2020-10-06 14:44 | PC.NURSE ---
Dr. Sevilla questioned about patients home medications ozempic and tresiba. Both orders are currently on hold.
[2020-10-06 15:10] VITALS: BP 165/75; PULSE 77; RESP 19; TEMP 37.2; O2SAT 95
[2020-10-06 17:23] LABS: Glucose Point of Care 346 mg/dL (70-110)
[2020-10-06 19:40] VITALS: BP 157/85; PULSE 63; RESP 20; TEMP 36.7; O2SAT 94
[2020-10-06 20:44] LABS: Glucose Point of Care 271 mg/dL (70-110)
[2020-10-06] MEDS: atorvastatin 40 mg Tablet 20 MG PO (20:49)
[2020-10-07] VITALS (16 sets, daily range): BP systolic 118–201; BP diastolic 75–107; PULSE 58–69; RESP 16–18; TEMP 36.3–36.9; O2SAT 91–99
[2020-10-07] MEDS: metoclopramide 5 mg/mL SDV 2 mL 10 MG IVP ×3 (01:46→18:30)
[2020-10-07] MEDS: piperacillin-tazobactam 3.375 GM in sodium chloride 0.9% (plus) 50 ML IV ×3 (03:22→18:30)
--- NOTE | 2020-10-07 06:37 | W.PM.OPSUD ---
Surgery/Procedure H&P Update DATE OF PROCEDURE: October 07, 2020 DATE H&P PERFORMED: 10/02/20 H&P UPDATE INFORMATION: I have reviewed H&P completed within last 30 days, I have examined patient prior to procedure, No changes to prior documentation, H&P to be scanned into chart and H&[place] is in [facility] date indicated PREOP DIAGNOSIS: diabetic foot ulcers PLANNED PROCEDURE: Operation Date: 10/07/20 07:00 Proposed Procedures p incision and debridement(Left) - Uzair Tao DPM
[2020-10-07] MEDS: vancomycin 1,500 MG/300 ML PIGGYBACK 150 MG IV (06:40)
[2020-10-07] MEDS: sodium chloride 0.9% 1,000 ML 30 ML IV (06:40)
--- NOTE | 2020-10-07 06:48 | P.ANESASSM_ITS ---
Pre-Anesthetic Assessment Pre-Anesthetic Assessment: Height/Weight: Height 1.8 m Weight 129.727 kg Temp Pulse Resp BP Pulse Ox 97.7 F 67 18 155/80 98 10/07/20 04:00 10/07/20 04:00 10/07/20 04:00 10/07/20 04:00 10/07/20 04:00 Preop Diagnosis: diabetic foot ulcers Proposed Procedure: Operation Date: 10/07/20 07:00 Proposed Procedures p incision and debridement(Left) - Uzair Tao DPM Familial anesthetic complications: None Was Beta Jamie taken within 24 hours: Yes Was Clonidine taken within 24 hours: N/A Last intake: NPO Social: Social History: No alcohol and No tobacco Exam: Pre-Anes Outpt Exam: alert, oriented x 3, clear to auscultation bilaterally and regular rate & rhythm Airway: Cervical ROM: WNL MP: 4 Dentition: False CV/HEM: CV/HEM: HTN Metabolic: Metabolic: DM, Hyperlipidemia and Morbid obesity Neuropsych: Neuropsych: Neuropathy Anesthetic Plan: ASA status: 3 Anesthesia: MAC Risk of > 500 ml blood loss (7ml/kg in children): No Meds/Allergies Current Medications: Current Medications Generic Name Dose Route Start Last Admin Trade Name Freq PRN Reason Stop Dose Admin Atenolol 50 mg 10/02/20 18:10 10/06/20 17:39 Atenolol 50 Mg T ablet PO 50 mg BID@,18 [facility] Administration Atorvastatin Calci um 20 mg 10/02/20 20:00 10/06/20 20:49 Atorvastatin 40 Mg Tablet PO 20 mg BEDTIME@1999 [facility] Administration Benzonatate 100 mg 10/02/20 19:02 10/03/20 15:28 Benzonatate 100 Mg Capsule PO 100 mg TID PRN Administration COUGH Cyanocobalamin 1,000 mcg 10/06/20 12:00 10/06/20 11:16 Cyanocobalamin 1 ,000 Mcg Tablet PO 1,000 mcg DAILY@1200 [facility] Administration Ferrous Sulfate 325 mg 10/03/20 08:00 10/06/20 08:25 Ferrous Sulfate Ec 325 Mg Tablet PO 325 mg DAILY@08 [facility] Administration Folic Acid 1 mg 10/03/20 08:00 10/06/20 08:25 Folic Acid 1 Mg Tablet PO 1 mg DAILY@08 [facility] Administration Furosemide 40 mg 10/02/20 18:10 10/06/20 17:40 Furosemide 40 Mg Tablet PO 40 mg BID@ [facility] Administration Gabapentin 300 mg 10/02/20 21:00 10/06/20 20:49 Gabapentin 300 M g Capsule PO 300 mg TID [facility] Administration Heparin Sodium (Be ef Lung) 5,000 unit 10/02/20 18:30 10/06/20 17:39 Heparin 5,000 Un it/Ml Inj 1 Ml SUBCUT 5,000 unit Q8H [facility] Administration Vancomycin/PEG/NAD A/Lysine/Water 1,500 mg in 300 m ls @ 200 mls/hr 10/03/20 17:00 10/06/20 23:56 Vancocin IV Infused Q12H [facility] Infusion Piperacillin Sod/T azobactam 50 mls @ 12.5 mls /hr 10/04/20 19:30 10/07/20 03:22 Sod 3.375 gm/ So dium Chloride IV 12.5 mls/hr Q8H [facility] Administration Protocol Insulin Aspart 0 unit 10/02/20 18:10 10/06/20 23:53 Insulin Aspart 1 00 Unit/1 Ml SUBCUT 10 unit WM&BEDTIME [facility] Administration Protocol Metoclopramide HCl 10 mg 10/04/20 13:45 10/07/20 01:46 Metoclopramide 5 Mg/Ml Sdv 2 Ml IVP 10 mg Q6H [facility] Administration Ondansetron HCl 4 mg 10/04/20 17:00 10/06/20 23:55 Ondansetron 2 Mg /Ml Sdv 2 Ml IV 4 mg AC&BEDTIME [facility] Administration Pantoprazole Sodiu m 40 mg 10/03/20 08:00 10/06/20 08:[address] 40 Mg Tablet PO 40 mg DAILY@08 [facility] Administration Potassium Chloride 20 meq 10/02/20 18:30 10/06/20 17:39 Potassium Chlori de Er 20 Meq Table t PO 20 meq BID@ [facility] Administration Senna/Docusate Sod ium 1 tab 10/03/20 09:00 10/06/20 08:25 Sennosides-Docus ate Tablet PO 1 tab DAILY [facility] Administration Vitamin D 5,000 unit 10/06/20 12:00 10/06/20 11:16 Cholecalciferol (Vitamin D3) 5,000 Unit Tablet PO 5,000 unit DAILY@1200 [facility] Administration PFSH Anesthesia PFSH: Medical History Charcot's joint of right foot Diabetes mellitus Hx of osteomyelitis Hypertension Microcytic anemia Morbid obesity with BMI of 40.0-44.9, adult Obstructive sleep apnea Venous ulcer Surgical History H/O foot surgery right foot History of right below knee amputation Hx of cholecystectomy Family History Family/Other Diabetes Hypertension Denies family history of CAD (coronary artery disease) Clotting disorder Dementia Hyperlipidemia Psychiatric illness Chronic kidney disease (CKD) Suicide Anesthesia complication Bleeding disorder Family history of premature coronary artery disease Lung disease Cancer Stroke Social History Smoking and tobacco status: former smoker Alcohol intake: never Current occupational status: employed Data Anesthesia CBC & Chem 7: 10/04/20 06:13 10/04/20 06:13 Other Labs: Laboratory Results - last 48 hr 10/05/20 10/05/20 10/05/20 06:07 11:27 11:29 POC Glucose 248 H 538 H* 493 H 10/05/20 10/05/20 10/06/20 16:38 20:04 06:32 POC Glucose 278 H 237 H 139 H 10/06/20 10/06/20 10/06/20 10:26 17:02 19:38 POC Glucose 307 H 346 H 271 H Cardiac Studies: No Data to Display
[2020-10-07 06:51] LABS: Glucose Point of Care 98 mg/dL (70-110)
[2020-10-07] MEDS: lidocaine 1% INJ 20 mL INJECTION (07:24)
--- NOTE | 2020-10-07 07:42 | PM.OP ---
Operative Report Date of procedure: October 07, 2020 Pre-op Diagnosis: Infected diabetic foot ulceration and puncture wound left foot Post-op diagnosis: same Post-op Findings: Wound at the left fourth interspace from dorsal to plantar with soft tissue necrosis. Procedure Done: Incision and debridement left foot with debridement of nonviable soft tissue down to and including muscle and deep fascia. Implants: Quarter inch Karen drain Specimens removed/disposition: Deep wound culture left foot sent to microbiology for Gram stain and culture Pathology: none sent Surgeon: Uzair Tao D.P.M. Insurance Sales Professional: Oneyda Anesthesia: MAC Estimated blood loss: 20 mL Tourniquet time: 13 minutes IV fluids: None Urine output: None Complications: None Findings: Devitalized soft tissue with fat necrosis and myonecrosis left foot fourth interspace Condition: stable Disposition: floor Brief History: Mr. Galeano is a 55-year-old male history of diabetes presents with a left foot wound states that it started with walking on a nail which became a blister infection progressed from there. He was admitted with leukocytosis elevated sed rate and CRP. I recommended incision and debridement and antibiotic therapy in effort to preserve his limb. Risks include pain, bleeding, numbness, infection, failure to eradicate infection, osteomyelitis, need for long-term antibiotics further surgical debridement and risk for amputation, loss of limb and loss of life. Patient is agreeable wishes to proceed. Informed consent is signed patient was interviewed preoperatively all questions answered I initialed his left foot. No guarantees written, expressed or implied. Procedure: Under mild sedation the patient was brought to the operating room and placed on the operating table in supine position. A timeout was performed. Anesthesia was then administered by the anesthesia service. Local anesthesia injected by myself consisting of 30 cc of one-to-one mixture 0.5% Marcaine and 1% lidocaine plain and a reverse Robbins block fashion left foot. Well-padded pneumatic tourniquet applied to the left ankle. Left lower extremity was scrubbed, prepped and draped utilizing normal aseptic technique. Left ankle tourniquet was then inflated to 250 mmHg. Attention was directed to the left plantar forefoot where a full-thickness wound that probes from plantar to dorsal within the fourth webspace of the left foot was appreciated. The margins of the left plantar foot wound were excised sharply to healthy tissue utilizing pickups and a 15 blade. Next dissection was carried deep into the wound and sharp and excisional debridement was performed of devitalized subcutaneous tissue, fat, muscle and deep fascia, the soft tissue was sent to microbiology for Gram stain and culture. Wound was then irrigated with copious amounts of sterile saline solution. Wound did not probe directly to bone. Post debridement the left fifth toe had a purple appearance in comparison to adjacent toes. Quarter inch Karen drain applied through the wound from plantar to dorsal followed by dressings consisting of 4 x 4, Kerlix ABD pad and Tommy wrap. Tommy wrap was applied without compression as to not impede vascular perfusion. Once tourniquet was deflated and a prompt hyperemic response was noted to toes 1 through 4 of the left foot and after some delay the left fifth toe became pink with capillary refill less than 5 seconds. Post debridement wound measurements the plantar wound measures 1.8 cm x 1.5 cm and probes from plantar to dorsal 6 cm deep. Patient tolerated procedure well and was transferred to the PACU with vital signs stable and vascular status intact. Following a period of postoperative monitoring he will be transferred back to the floor to continue empiric IV antibiotics. He may heel touch for transfers on the left foot. He is to elevate the left foot while at rest.
[2020-10-07] MEDS: gabapentin 300 mg Capsule PO ×3 (09:08→22:02)
[2020-10-07] MEDS: sennosides-docusate Tablet 1 TAB PO (09:08)
--- NOTE | 2020-10-07 09:58 | PC.NURSE ---
RN rounded with Dr. Zamora. new verbal orders given for stool sample and lactulose.
--- NOTE | 2020-10-07 10:05 | PC.NURSE ---
Nurse notified of blood pressure 183/91
--- NOTE | 2020-10-07 11:04 | PC.NURSE ---
Dr. Sevilla notified of patients blood pressure of 183/91 and discussed patient not getting AM dose of Atenolol. new orders given for 1x dose to give now.
[2020-10-07] MEDS: cholecalciferol (vitamin D3) 5,000 unit Tablet 5000 UNIT PO (11:13)
[2020-10-07] MEDS: ondansetron 2 mg/ML SDV 2 mL 4 MG IV (11:13)
[2020-10-07] MEDS: cyanocobalamin 1,000 mcg Tablet 1000 MCG PO (11:13)
[2020-10-07] MEDS: atenolol 50 mg Tablet PO ×2 (11:13→17:50)
--- NOTE | 2020-10-07 12:06 | ANE.PACU2 ---
Inpatient post-anesthesia follow up: Airway intact: Yes Vital signs: Temperature 98.2 F Pulse Rate [Monito r] 72 Pulse Rate 65 Respiratory Rate 18 Blood Pressure [Le ft Arm] 128/73 Blood Pressure 118/81 Pulse Oximetry 99 Oxygen Delivery Me thod Room Air Oxygen Flow Rate Fraction of Inspir ed Oxygen Hydration adequate: Yes Nausea and vomiting: No Pain level: 2 Mental status: Baseline
[2020-10-07 12:30] LABS: Glucose Point of Care 179 mg/dL (70-110)
--- NOTE | 2020-10-07 12:47 | PC.NURSE ---
Medications given without scanning due to WIFI not working. two patient identifiers used. verified with Miriam GUAN.
[2020-10-07] MEDS: amlodipine 10 mg Tablet PO (14:14)
--- NOTE | 2020-10-07 15:42 | P.PN_ITS ---
Subjective Subjective: Interval history: Underwent incision and debridement of the left foot with debridement of nonviable tissue down to muscle and deep fascia. Quarter inch Karen drain left in place. Operative findings with fat necrosis and myonecrosis of the left foot fourth interspace. Wound did not probe directly to bone. Brought back to the floor, noted to be hypertensive with systolic blood pressure up to 200. Also noted to be vomiting and retching. Not past urine yet, bladder scan ordered. 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 Data : 10/04/20 06:13 10/04/20 06:13 Micro: Microbiology 10/02/20 14:24 Blood Culture - Final Blood NO GROWTH AFTER 5 DAYS 10/02/20 13:38 Blood Culture - Final Blood NO GROWTH AFTER 5 DAYS 10/07/20 07:35 Gram Stain - Final Other Source A&P Assessment and plan (1) Cellulitis: Continue empiric piperacillin tazobactam. Discontinue vancomycin today, trough at 20, previous wound cultures with MSSA. Await OR culture sent today, will narrow antibiotics based on final culture results Likely need prolonged antibiotics for 3 to 4 weeks to allow for adequate wound healing Status post incision and drainage today, findings as above no probe to bone, however ESR noted to be elevated LE venous duplex negative for DVT, left side popliteal cyst noted, last FLORENCE from 01/2020 with normal FLORENCE left side. Continue dressing per wound care instructions Status: Acute Qualifiers: Laterality: left Site of cellulitis: extremity Site of cellulitis of extremity: lower extremity Qualified Code(s): L03.116 - Cellulitis of left lower limb (2) Venous ulcer: Status: Acute (3) Diabetic peripheral neuropathy associated with type 2 diabetes mellitus: on neurontin Status: Acute (4) Diabetes mellitus: Continue insulin sliding scale Status: Acute Qualifiers: Diabetes mellitus complication detail: with polyneuropathy Diabetes mellitus complication status: with neurologic complications Diabetes mellitus superintendent container terminal insulin use: with superintendent container terminal use Diabetes mellitus type: type 2 Qualified Code(s): E11.42 - Type 2 diabetes mellitus with diabetic polyneuropathy; Z79.4 - group home (current) use of insulin (5) Left foot infection: as above Status: Acute (6) Nausea and vomiting: Alternating Zofran and Reglan Status: Acute Additional A&P Information Acute kidney injury This seems secondary to poorly controlled type 2 diabetes and Lisinopril Is a morbidly obese male with no active signs of fluid overload Continue to hold lisinopril and Metformin, check renal function in the morning, if stable to improving, will reinitiate lisinopril Hypertension, accelerated with systolic blood pressure up to 200 Missed his dose of atenolol this morning prior to going for surgery Atenolol given, Amlodipine 10 mg and as needed hydralazine added Multiple episodes of vomiting post OR, patient reports dry mouth, tongue noted to be slightly parched Hold Lasix Normal saline fluids at 50 cc an hour Palpitations Continue atenolol Full code Consistent carb diet DVT prophylaxis Heparin Attestations Medical Necessity Statement*: s/p I&D today, ongoing need for iv abx Coding Level of Care Code Acute Park Superintendent for [facility] Diagnoses Cellulitis L03.116 Laterality: left Site of cellulitis: extremity Site of cellulitis of extremity: lower extremity Venous ulcer I83.009; L97.909 Diabetic peripheral neuropathy associated with type 2 diabetes mellitus E11.42 Diabetes mellitus E11.42; Z79.4 Diabetes mellitus complication detail: with polyneuropathy Diabetes mellitus complication status: with neurologic complications Diabetes mellitus senior living insulin use: with senior living use Diabetes mellitus type: type 2 Left foot infection L08.9 Nausea and vomiting R11.2
[2020-10-07 16:06] LABS: Coronavirus Test Green County Detected
[2020-10-07] MEDS: hyDRALAzine 10 mg Tablet PO (16:47)
--- NOTE | 2020-10-07 17:18 | PC.NURSE ---
Notified Dr Sevilla that patient is positive for covid.
--- NOTE | 2020-10-07 17:23 | XR_ITS ---
WS: [id number] Exam: XR chest 1V portable [id number] Date/Time of Exam: 10/07/2020 5:57 PM Reason For Exam: incidental COVID positive, evaluate for any infiltrates Comparison 02/05/2020. Findings: The lungs are clear and fully expanded. Costophrenic angles are sharp. No infiltrates. Bronchovascula r relief appears normal. Cardiac silhouette is unremarkable. Bony elements are intact. XR/XR chest 1V portable [id number] IMPRESSION: Unremarkable chest radiograph.
[2020-10-07] MEDS: hyDRALAzine 20 mg/mL INJ 1 mL 10 MG IVP (17:49)
[2020-10-07] MEDS: lidocaine 2% viscous 15 ML, aluminum-mag hydrox-simethicon 30 ML, sucralfate oral liq 1 GM PO (17:50)
[2020-10-07] MEDS: nitroglycerin 1 gm/inch oint Pkt 1 INCH TOPICAL ×2 (17:50→23:36)
[2020-10-07 18:29] LABS: Glucose Point of Care 247 mg/dL (70-110)
[2020-10-07 20:54] LABS: Glucose Point of Care 217 mg/dL (70-110)
[2020-10-07] MEDS: atorvastatin 40 mg Tablet 20 MG PO (22:02)
[2020-10-07] MEDS: sodium chloride 0.9% 1,000 ML 50 ML IV (23:37)
[2020-10-08] VITALS (7 sets, daily range): BP systolic 139–187; BP diastolic 72–97; PULSE 63–87; RESP 18–21; TEMP 36.7–37.2; O2SAT 92–97
[2020-10-08] MEDS: metoclopramide 5 mg/mL SDV 2 mL 10 MG IVP ×4 (01:39→20:49)
[2020-10-08] MEDS: piperacillin-tazobactam 3.375 GM in sodium chloride 0.9% (plus) 50 ML IV ×3 (04:53→20:29)
[2020-10-08] MEDS: nitroglycerin 1 gm/inch oint Pkt 1 INCH TOPICAL ×3 (04:54→17:20)
[2020-10-08 06:35] LABS: Basophils # 0.1 10^3/uL (0.0-0.1); Basophils % 1.2 %; Eosinophils # 0.1 10^3/uL (0.0-0.8); Eosinophils % 0.8 %; Hematocrit 39.6 % (42.0-52.0); Hemoglobin 12.2 g/dL (11.7-16.6); Lymphocytes % 24.1 %; Mean Corpuscular HGB Conc 30.8 g/dL (30.0-36.0); Mean Corpuscular Hemoglobin 25.8 pg (28.0-34.0); Mean Corpuscular Volume 83.9 fL (80-94); Mean Platelet Volume 8.5 fL (7.4-10.4); Monocytes # 0.7 10^3/uL (0.2-0.9); Neutrophils # 5.17 10^3/uL (1.8-7.7); Neutrophils % 61.8 %; Nucleated Red Blood Cells % 0 %; Platelet Count 518 10^3/cmm (130-400); Red Blood Count 4.72 10^6/uL (4.1-5.3); Red Cell Distribution Width 14.5 % (12.1-15.1); White Blood Count 8.4 10^3/uL (4.0-10.0)
[2020-10-08 06:41] LABS: Glucose Point of Care 123 mg/dL (70-110)
[2020-10-08 07:06] LABS: Alanine Aminotransferase 39 U/L (0-41); Albumin Level 3.8 g/dL (3.5-5.2); Alkaline Phosphatase 91 IU/L (40-130); Anion Gap 14.9 (5-19); Aspartate Amino Transferase 21 U/L (0-40); Blood Urea Nitrogen 16 mg/dL (6-20); Calcium 9.1 mg/dL (8.5-10.5); Carbon Dioxide 29 mmol/L (22-29); Chloride 106 mmol/L (98-107); Globulin 3.1 g/dL (1.3-4.6); Glomerular Filtration Rate 77.9 mL/min (90-130); Glucose 112 mg/dL (65-115); Osmolality Calculated 304 mOsm/kg (285-295); Potassium 3.9 mmol/L (3.5-5.1); Sodium 146 mmol/L (136-145); Total Bilirubin 0.3 mg/dL (0.15-1.2); Total Protein 6.9 g/dL (6.6-8.7)
[2020-10-08] MEDS: amlodipine 10 mg Tablet PO (08:06)
[2020-10-08] MEDS: folic acid 1 mg Tablet PO (08:06)
[2020-10-08] MEDS: pantoprazole DR 40 mg Tablet PO (08:06)
[2020-10-08] MEDS: atenolol 50 mg Tablet PO ×2 (08:06→17:20)
[2020-10-08] MEDS: sennosides-docusate Tablet 1 TAB PO (08:06)
[2020-10-08] MEDS: ferrous sulfate EC 325 mg Tablet PO (08:06)
[2020-10-08] MEDS: gabapentin 300 mg Capsule PO ×3 (08:06→20:31)
[2020-10-08] MEDS: sodium chloride 0.9% 1,000 ML 50 ML IV (10:51)
[2020-10-08] MEDS: acetaminophen 325 mg Tablet 650 MG PO (10:52)
[2020-10-08 11:06] LABS: Glucose Point of Care 163 mg/dL (70-110)
[2020-10-08] MEDS: cyanocobalamin 1,000 mcg Tablet 1000 MCG PO (12:54)
[2020-10-08] MEDS: cholecalciferol (vitamin D3) 5,000 unit Tablet 5000 UNIT PO (12:54)
--- NOTE | 2020-10-08 13:46 | P.PN_ITS ---
Subjective Subjective: Interval history: Blood pressure is much better controlled today. Afebrile, hemodynamically stable, denies any new complaints, nausea is improved. Gram stain thus far with no organisms, few white blood cells, blood culture remains negative to date. 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 Discontinued vancomycin 10/07 Await OR culture to narrow antibiotics based on final culture results Likely need prolonged antibiotics for 3 to 4 weeks to allow for adequate wound healing. PICC line placement is likely to need IV antibiotics Status post incision and drainage 10/07, no probe to bone, however ESR noted to be elevated LE venous duplex negative for DVT, left side popliteal cyst noted, last FLORENCE from 01/2020 with normal FLORENCE left side. Continue dressing per wound care instructions Status: Acute Qualifiers: Laterality: left Site of cellulitis: extremity Site of cellulitis of extremity: lower extremity Qualified Code(s): L03.116 - Cellulitis of left lower limb (2) Venous ulcer: Status: Acute (3) Diabetic peripheral neuropathy associated with type 2 diabetes mellitus: on neurontin Status: Acute (4) Diabetes mellitus: Continue insulin sliding scale Status: Acute Qualifiers: Diabetes mellitus complication detail: with polyneuropathy Diabetes mellitus complication status: with neurologic complications Diabetes mellitus tank terminal gauger insulin use: with tank terminal gauger use Diabetes mellitus type: type 2 Qualified Code(s): E11.42 - Type 2 diabetes mellitus with diabetic polyneuropathy; Z79.4 - nursing home (current) use of insulin (5) Left foot infection: as above Status: Acute (6) Nausea and vomiting: Alternating Zofran and Reglan Status: Acute (7) Asymptomatic COVID-19 virus infection: Covid PCR incidentally positive when taken as part of presurgical screen, repeat ordered at [facility] as well as clinically patient does not have any signs or symptoms of COVID-19 infection. Chest x-ray is clear, he is saturating 97% on room air. Status: Acute Additional A&P Information Acute kidney injury This seems secondary to poorly controlled type 2 diabetes and Lisinopril Renal function has now returned to baseline, resume lisinopril today. Hypertension, accelerated with systolic blood pressure up to 200 on October 07 Given kidney function are trended back to baseline resume lisinopril Hold Lasix Discontinue IV fluids Palpitations Continue atenolol Full code Consistent carb diet DVT prophylaxis Heparin Attestations Medical Necessity Statement*: Need for IV antibiotics, PICC line placement, repeat Covid testing, awaiting culture results from Or to ascertain discharge antibiotics Coding Level of Care Code Acute Shutdown Coordinator for [facility] Fwd Diagnoses Cellulitis L03.116 Laterality: left Site of cellulitis: extremity Site of cellulitis of extremity: lower extremity Venous ulcer I83.009; L97.909 Diabetic peripheral neuropathy associated with type 2 diabetes mellitus E11.42 Diabetes mellitus E11.42; Z79.4 Diabetes mellitus complication detail: with polyneuropathy Diabetes mellitus complication status: with neurologic complications Diabetes mellitus assisted insulin use: with assisted use Diabetes mellitus type: type 2 Left foot infection L08.9 Nausea and vomiting R11.2 Asymptomatic COVID-19 virus infection U07.1
[2020-10-08 16:54] LABS: Glucose Point of Care 178 mg/dL (70-110)
[2020-10-08] MEDS: lisinopril 20 mg Tablet 40 MG PO (17:25)
--- NOTE | 2020-10-08 17:48 | PM.PN ---
Subjective Subjective: Interval history: 1 day status post incision and debridement left foot patient doing well. Denies any acute events overnight, tolerating regular diet. Patient denies any subjective nausea, vomiting, fever, chills, shortness of breath or chest pain. Vitals/I&O/Wt Last Vital Signs Temp 98.9 F 10/08/20 15:30 Pulse 69 10/08/20 15:30 Resp 21 H 10/08/20 15:30 BP 167/77 10/08/20 15:30 Pulse Ox 92 10/08/20 15:30 10/08/20 10/08/20 10/08/20 06:59 14:59 22:59 Intake Total 50 / 1567 811.667 / 811.667 Output Total 325 / 730 700 / 700 Balance -275 / 837 111.667 / 111.667 Physical Exam Narrative: EXAM NARRATIVE: Patient is alert and oriented ?3 and in no acute distress. The following is a focused left lower extremity exam. VASCULAR: Dorsalis pedis and posterior tibial arteries palpable . Capillary refill time less than 3 seconds to the distal hallux and fifth toe left foot. Calf is supple and nontender proximally and distally. Pitting edema of the left lower extremity. NEUROLOGICAL: Protective sensation intact 0/10 sites, tested with [place] Steve monofilament to bilateral feet. DERMATOLOGICAL: No strikethrough at dressings postoperatively, this was taken down and wound was evaluated, [place] drain in place, no purulent drainage, improved erythema, no malodor present. MUSCULOSKELETAL: No pain with debridement, palpation or probing secondary to neuropathy. Hammertoe deformity of toes 2 through 5 on the left foot. Muscle strength 5/5 in all 3 cardinal planes left foot. No pain with posterior calf squeeze of the left leg. 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 Data : 10/08/20 06:20 10/08/20 06:20 Micro: Microbiology 10/07/20 07:35 Gram Stain - Final Other Source Wound Culture - Preliminary 10/02/20 14:24 Blood Culture - Final Blood NO GROWTH AFTER 5 DAYS 10/02/20 13:38 Blood Culture - Final Blood NO GROWTH AFTER 5 DAYS A&P Assessment and plan (1) Diabetic peripheral neuropathy associated with type 2 diabetes mellitus: Status: Acute (2) Puncture wound of foot, left: Status: Acute Qualifiers: Encounter type: initial encounter Qualified Code(s): S91.332A - Puncture wound without foreign body, left foot, initial encounter (3) Non-pressure chronic ulcer of other part of left foot with necrosis of muscle: Status: Acute Day status post I&D left foot clinically improving. Recommended: -Dressing change, Karen drain left intact. -Heel touch left foot for transfers at this time -Empiric abx per hospitalist, deep tissue cx intra-operatively pending, may narrow if cultures yield further info per infectious disease. -Patient okay for discharge from podiatry standpoint, no further surgical intervention anticipated during this hospitalization. -Recommend wound care referral on discharge for continued care of left foot wound. Podiatry will follow, appreciate consult and opportunity to participate in patients care. Dr Tao cell [phone] Attestations Medical Necessity Statement*: Foot infection Coding Level of Care Code Acute Plywood Layup Line Back Feeder for [facility] Fwd Diagnoses Diabetic peripheral neuropathy associated with type 2 diabetes mellitus E11.42 Puncture wound of foot, left S91.332A Encounter type: initial encounter Non-pressure chronic ulcer of other part of left foot with necrosis of muscle L97.523
--- NOTE | 2020-10-08 19:02 | PC.NURSE ---
Report to Julio C BIANCHI at this time.
[2020-10-08] MEDS: atorvastatin 40 mg Tablet 20 MG PO (20:29)
[2020-10-08 20:57] LABS: Glucose Point of Care 209 mg/dL (70-110)
[2020-10-09] VITALS: BP 151/81; PULSE 60; RESP 18; TEMP 36.7; O2SAT 94
[2020-10-09] MEDS: nitroglycerin 1 gm/inch oint Pkt 1 INCH TOPICAL ×2 (01:12→05:18)
[2020-10-09 04:00] VITALS: BP 161/84; PULSE 65; RESP 16; TEMP 36.7; O2SAT 95
[2020-10-09] MEDS: metoclopramide 5 mg/mL SDV 2 mL 10 MG IVP (05:00)
[2020-10-09] MEDS: piperacillin-tazobactam 3.375 GM in sodium chloride 0.9% (plus) 50 ML IV ×2 (05:17→14:21)
[2020-10-09] MEDS: acetaminophen 325 mg Tablet 650 MG PO (05:17)
[2020-10-09 07:09] LABS: Glucose Point of Care 135 mg/dL (70-110)
[2020-10-09 07:43] VITALS: BP 151/84; PULSE 60; RESP 17; TEMP 36.7; O2SAT 94
[2020-10-09] MEDS: pantoprazole DR 40 mg Tablet PO (08:12)
[2020-10-09] MEDS: lisinopril 20 mg Tablet 40 MG PO (08:12)
[2020-10-09] MEDS: ferrous sulfate EC 325 mg Tablet PO (08:12)
[2020-10-09] MEDS: folic acid 1 mg Tablet PO (08:12)
[2020-10-09] MEDS: amlodipine 10 mg Tablet PO (08:16)
[2020-10-09] MEDS: gabapentin 300 mg Capsule PO ×3 (08:16→21:02)
[2020-10-09] MEDS: atenolol 50 mg Tablet PO ×2 (08:16→17:32)
[2020-10-09] MEDS: ondansetron 2 mg/ML SDV 2 mL 4 MG IV ×2 (09:53→17:32)
[2020-10-09 10:49] LABS: Glucose Point of Care 202 mg/dL (70-110)
[2020-10-09 11:25] VITALS: BP 150/88; PULSE 88; RESP 21; TEMP 36.7; O2SAT 93
[2020-10-09] MEDS: cyanocobalamin 1,000 mcg Tablet 1000 MCG PO (11:44)
[2020-10-09] MEDS: cholecalciferol (vitamin D3) 5,000 unit Tablet 5000 UNIT PO (11:44)
--- NOTE | 2020-10-09 13:52 | XR_ITS ---
WS: [id number] Exam: XR chest 1V portable [id number] Date/Time of Exam: 10/09/2020 1:52 PM Reason For Exam: PICC Placement Comparison 10/07/2020. A right-sided PICC line is been placed and ends in the lower one third of the SVC in good position. T he lungs are clear and fully expanded. Unremarkable cardiomediastinal structures and regional bony el ements. XR/XR chest 1V portable [id number] IMPRESSION: 1. Right-sided PICC line in satisfactory position. The chest is otherwise unrem arkable.
[2020-10-09 15:13] VITALS: BP 150/88; PULSE 88; RESP 21; TEMP 36.7; O2SAT 93
--- NOTE | 2020-10-09 16:35 | PM.PN ---
Subjective Subjective: Interval history: No acute overnight events. Hemodynamically stable, blood pressure ranging between 1 50-1 60 systolic. PICC line to be placed today. 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 Currently on empiric treatment with piperacillin tazobactam, vancomycin discontinued on 323 Start ceftriaxone 2 g IV daily, if final susceptibility results with MSSA this would be the discharge recommendation as well. PICC line placed in anticipation of IV antibiotic for complicated infection. No current signs of osteomyelitis on imaging, however CRP markedly elevated at 280 and ESR also at 90. We will choose IV antibiotic course at least over the next 4 weeks for a complicated deep-seated infection, thereafter subsequent course would be decided based on follow-up in the infectious disease clinic and clinical course. Await OR culture to narrow antibiotics based on final culture results LE venous duplex negative for DVT, left side popliteal cyst noted, last FLORENCE from 01/2020 with normal FLORENCE left side. Continue dressing per wound care instructions Status: Acute Qualifiers: Laterality: left Site of cellulitis: extremity Site of cellulitis of extremity: lower extremity Qualified Code(s): L03.116 - Cellulitis of left lower limb (2) Diabetic peripheral neuropathy associated with type 2 diabetes mellitus: on neurontin Status: Acute (3) Diabetes mellitus: Continue insulin sliding scale, fingersticks currently well controlled Status: Acute Qualifiers: Diabetes mellitus complication detail: with polyneuropathy Diabetes mellitus complication status: with neurologic complications Diabetes mellitus skilled nursing insulin use: with termite exterminator use Diabetes mellitus type: type 2 Qualified Code(s): E11.42 - Type 2 diabetes mellitus with diabetic polyneuropathy; Z79.4 - longterm (current) use of insulin (4) Left foot infection: as above Status: Acute (5) Nausea and vomiting: Alternating Zofran and Reglan Nausea and vomiting are currently improved Status: Acute (6) Asymptomatic COVID-19 virus infection: Covid PCR incidentally positive when taken as part of presurgical screen, repeat ordered at [facility] as well as clinically patient does not have any signs or symptoms of COVID-19 infection. Chest x-ray is clear, he is saturating 93% on room air. Status: Acute Additional A&P Information Acute kidney injury Now resolved, lisinopril has been resumed Hypertension, accelerated with systolic blood pressure up to 200 on October 07 Currently on treatment with amlodipine 10 mg, lisinopril 40 mg, atenolol 50 p.o. twice daily, hydralazine 10 mg 3 times daily added as blood pressure still ranging between 1 50-1 60 systolic. Full code Consistent carb diet DVT prophylaxis lovenox Attestations Medical Necessity Statement*: PICC line placement, need for IV antibiotics, awaiting cultures to decide home regimen of IV antibiotics. Coding Level of Care Code Acute Head Start Coordinator for [facility] Diagnoses Cellulitis L03.116 Laterality: left Site of cellulitis: extremity Site of cellulitis of extremity: lower extremity Diabetic peripheral neuropathy associated with type 2 diabetes mellitus E11.42 Diabetes mellitus E11.42; Z79.4 Diabetes mellitus complication detail: with polyneuropathy Diabetes mellitus complication status: with neurologic complications Diabetes mellitus skilled nursing insulin use: with skilled nursing use Diabetes mellitus type: type 2 Left foot infection L08.9 Nausea and vomiting R11.2 Asymptomatic COVID-19 virus infection U07.1
--- NOTE | 2020-10-09 16:43 | PC.NURSE ---
Patient has Zosyn going at this time will hang next antibiotic when it is finished.
[2020-10-09 17:08] LABS: Glucose Point of Care 187 mg/dL (70-110)
[2020-10-09] MEDS: enoxaparin 40 mg/0.4 mL Syringe SUBCUT (17:33)
--- NOTE | 2020-10-09 18:28 | PC.NURSE ---
Patient had PICC line placed today. Dressing will need to be changed tomorrow before discharge.
--- NOTE | 2020-10-09 19:03 | PC.NURSE ---
Report to Calab PRIZE COORDINATOR at this time.
[2020-10-09 20:00] VITALS: BP 144/77; PULSE 64; RESP 18; TEMP 36.8; O2SAT 95
--- NOTE | 2020-10-09 20:42 | P.PN_ITS ---
Subjective Subjective: Interval history: 2 days status post incision and debridement left foot, patient denies any pain. Going for PICC line placement this afternoon. Cultures growing staph aureus, final sensitivities pending. Patient denies any subjective nausea, vomiting, fever, chills, shortness of breath or chest pain. Vitals/I&O/Wt Last Vital Signs Temp 98.2 F 10/09/20 20:00 Pulse 64 10/09/20 20:00 Resp 18 10/09/20 20:00 BP 144/77 10/09/20 20:00 Pulse Ox 95 10/09/20 20:00 10/09/20 10/09/20 10/09/20 06:59 14:59 22:59 Intake Total 530 / 1391.667 50 / 50 300 / 350 Output Total 200 / 1300 300 / 300 Balance 330 / 91.667 50 / 50 0 / 50 Physical Exam Narrative: EXAM NARRATIVE: Patient is alert and oriented ?3 and in no acute distress. The following is a focused left lower extremity exam. VASCULAR: Dorsalis pedis and posterior tibial arteries palpable . Capillary refill time less than 3 seconds to the distal hallux and fifth toe left foot. Calf is supple and nontender proximally and distally. Pitting edema of the left lower extremity. NEUROLOGICAL: Protective sensation intact 0/10 sites, tested with [place] Steve monofilament to bilateral feet. DERMATOLOGICAL: No strikethrough at dressings postoperatively, this was taken down and wound was evaluated, Karen drain in place, no purulent drainage, im proved erythema, no malodor present. MUSCULOSKELETAL: No pain with debridement, palpation or probing secondary to neuropathy. Hammertoe deformity of toes 2 through 5 on the left foot. Muscle strength 5/5 in all 3 cardinal planes left foot. No pain with posterior calf squeeze of the left leg. History of [id number] amputation of the right lower extremity. Data : 10/08/20 06:20 10/08/20 06:20 Micro: Microbiology 10/07/20 07:35 Gram Stain - Final Other Source Wound Culture - Preliminary Staphylococcus aureus A&P Assessment and plan (1) Diabetic peripheral neuropathy associated with type 2 diabetes mellitus: Status: Acute (2) Puncture wound of foot, left: Status: Acute Qualifiers: Encounter type: initial encounter Qualified Code(s): S91.332A - P uncture wound without foreign body, left foot, initial encounter (3) Non-pressure chronic ulcer of other part of left foot with necrosis of muscle: Status: Acute Day status post I&D left foot clinically improving. Recommended: -Dressing change, Karen drain left intact. -Heel touch left foot for transfers at this time -Empiric abx per hospitalist, deep tissue cx intra-operatively pending, may narrow if cultures yield further info per infectious disease. -Patient okay for discharge from podiatry standpoint, no further surgical intervention anticipated during this hospitalization. -Recommend wound care referral on discharge for continued care of left foot wound. Podiatry will follow, appreciate consult and opportunity to participate in patients care. Dr Tao cell [phone] Attestations Medical Necessity Statement*: Left foot infection Coding Level of Care Code Acute Track Inspector for [facility] Diagnoses Diabetic peripheral neuropathy associated with type 2 diabetes mellitus E11.42 Puncture wound of foot, left S91.332A Encounter type: initial encounter Non-pressure chronic ulcer of other part of left foot with necrosis of muscle L97.523
[2020-10-09] MEDS: cefTRIAXone 2,000 MG in sodium chloride 0.9% (plus) 50 ML 100 MG IV (21:01)
[2020-10-09] MEDS: hyDRALAzine 10 mg Tablet PO (21:02)
[2020-10-09] MEDS: atorvastatin 40 mg Tablet 20 MG PO (21:02)
[2020-10-09 21:04] LABS: Glucose Point of Care 168 mg/dL (70-110)
[2020-10-09 22:37] LABS: Quest SARS-CoV-2 RNA DETECTED (NOT DETECTED)
[2020-10-10] VITALS (10 sets, daily range): BP systolic 142–197; BP diastolic 76–105; PULSE 63–68; RESP 16–21; TEMP 36.4–37; O2SAT 94–97
[2020-10-10 06:16] LABS: Basophils # 0.1 10^3/uL (0.0-0.1); Basophils % 0.9 %; Eosinophils # 0.1 10^3/uL (0.0-0.8); Eosinophils % 1.4 %; Hematocrit 39.9 % (42.0-52.0); Hemoglobin 12.2 g/dL (11.7-16.6); Lymphocytes % 22.7 %; Mean Corpuscular HGB Conc 30.6 g/dL (30.0-36.0); Mean Corpuscular Volume 84.9 fL (80-94); Mean Platelet Volume 8.9 fL (7.4-10.4); Monocytes # 0.6 10^3/uL (0.2-0.9); Monocytes % 6.8 %; Neutrophils # 5.93 10^3/uL (1.8-7.7); Nucleated Red Blood Cells % 0 %; Platelet Count 484 10^3/cmm (130-400); Red Cell Distribution Width 14.5 % (12.1-15.1)
[2020-10-10 06:28] LABS: Glucose Point of Care 125 mg/dL (70-110)
[2020-10-10 06:31] LABS: Alanine Aminotransferase 44 U/L (0-41); Albumin Level 3.6 g/dL (3.5-5.2); Alkaline Phosphatase 81 IU/L (40-130); Aspartate Amino Transferase 32 U/L (0-40); Blood Urea Nitrogen 11 mg/dL (6-20); Carbon Dioxide 27 mmol/L (22-29); Chloride 103 mmol/L (98-107); Globulin 2.9 g/dL (1.3-4.6); Glomerular Filtration Rate 100.7 mL/min (90-130); Glucose 105 mg/dL (65-115); Osmolality Calculated 290 mOsm/kg (285-295); Sodium 140 mmol/L (136-145); Total Bilirubin 0.3 mg/dL (0.15-1.2); Total Protein 6.5 g/dL (6.6-8.7)
[2020-10-10 06:33] LABS: Calcium 8.7 mg/dL (8.5-10.5)
[2020-10-10] MEDS: lisinopril 20 mg Tablet 40 MG PO (08:50)
[2020-10-10] MEDS: pantoprazole DR 40 mg Tablet PO (08:50)
[2020-10-10] MEDS: amlodipine 10 mg Tablet PO (08:50)
[2020-10-10] MEDS: folic acid 1 mg Tablet PO (08:50)
[2020-10-10] MEDS: sennosides-docusate Tablet 1 TAB PO (08:50)
[2020-10-10] MEDS: gabapentin 300 mg Capsule PO ×2 (08:50→15:40)
[2020-10-10] MEDS: atenolol 50 mg Tablet PO ×2 (08:51→17:58)
[2020-10-10] MEDS: ferrous sulfate EC 325 mg Tablet PO (08:51)
[2020-10-10] MEDS: hyDRALAzine 10 mg Tablet PO (08:51)
[2020-10-10] MEDS: ondansetron 2 mg/ML SDV 2 mL 4 MG IV (09:26)
[2020-10-10] MEDS: cholecalciferol (vitamin D3) 5,000 unit Tablet 5000 UNIT PO (11:29)
[2020-10-10] MEDS: cyanocobalamin 1,000 mcg Tablet 1000 MCG PO (11:29)
--- NOTE | 2020-10-10 11:56 | PM.PN ---
Subjective Subjective: Interval history: Mr. Galeano is 3 days status post I&D left foot doing well. Denies any left foot pain. Dressings are clean and dry without strikethrough. Patient denies any subjective nausea, vomiting, fever, chills, shortness of breath or chest pain. Vitals/I&O/Wt Last Vital Signs Temp 98.3 F 10/10/20 11:21 Pulse 68 10/10/20 11:21 Resp 16 10/10/20 11:21 BP 197/105 10/10/20 11:21 Pulse Ox 95 10/10/20 11:21 10/09/20 10/10/20 10/10/20 22:59 06:59 14:59 Intake Total 300 / 350 50 / 400 120 / 120 Output Total 300 / 300 Balance 0 / 50 50 / 100 120 / 120 Physical Exam Narrative: EXAM NARRATIVE: Patient is alert and oriented ?3 and in no acute distress. The following is a focused left lower extremity exam. VASCULAR: Dorsalis pedis and posterior tibial arteries palpable . Capillary refill time less than 3 seconds to the distal hallux and fifth toe left foot. Calf is supple and nontender proximally and distally. Pitting edema of the left lower extremity. NEUROLOGICAL: Protective sensation intact 0/10 sites, tested with [place] Steve monofilament to bilateral feet. DERMATOLOGICAL: No strikethrough at dressings postoperatively, this was taken down and wound was evaluated, [place] drain in place, no purulent drainage, improved erythema, no malodor present. MUSCULOSKELETAL: No pain with debridement, palpation or probing secondary to neuropathy. Hammertoe deformity of toes 2 through 5 on the left foot. Muscle strength 5/5 in all 3 cardinal planes left foot. No pain with posterior calf squeeze of the left leg. History of [id number] amputation of the right lower extremity. Data : 10/10/20 05:56 10/10/20 05:56 Micro: Microbiology 10/07/20 07:35 Gram Stain - Final Other Source Wound Culture - Final Staphylococcus aureus A&P Assessment and plan (1) Diabetic peripheral neuropathy associated with type 2 diabetes mellitus: Status: Acute (2) Puncture wound of foot, left: Status: Acute Qualifiers: Encounter type: initial encounter Qualified Code(s): S91.332A - Puncture wound without foreign body, left foot, initial encounter (3) Non-pressure chronic ulcer of other part of left foot with necrosis of muscle: Status: Acute Mr. Galeano is 3 days status post I&D left foot clinically improving. -After discharge patient is to have a once daily dressing change and packing change until he follows up in wound care clinic -Patient has a postop shoe is to utilize the postop shoe at the left foot for transfers -Elevate left foot while at rest -Cultures grew MSSA, antibiotic selection per Dr. Sevilla, greatly appreciate her expertise and recommendations in this. -Refer/follow-up in wound care clinic. Attestations Medical Necessity Statement*: Left foot infection Coding Level of Care Code Acute Network Control Operators Supervisor for [facility] Joanna Diagnoses Diabetic peripheral neuropathy associated with type 2 diabetes mellitus E11.42 Puncture wound of foot, left S91.332A Encounter type: initial encounter Non-pressure chronic ulcer of other part of left foot with necrosis of muscle L97.523
[2020-10-10 12:01] LABS: Glucose Point of Care 167 mg/dL (70-110)
[2020-10-10] MEDS: isosorbide mononitrate ER 30 mg Tablet PO ×2 (12:27→15:46)
[2020-10-10] MEDS: hyDRALAzine 25 mg Tablet PO (14:08)
--- NOTE | 2020-10-10 16:51 | P.DS_ITS ---
Discharge Providers Date of Admission: 10/02/20 18:10 Date of Discharge: October 10, 2020 Attending Provider at Admission: Mary Vazquez MD Attending Provider at Discharge: Lesly Sevilla MD Primary Care Provider: MARCOS Chopra Diagnoses at Discharge Discharge Diagnosis (1) Diabetic peripheral neuropathy associated with type 2 diabetes mellitus: Status: Acute (2) Puncture wound of foot, left: Status: Acute Qualifiers: Encounter type: initial encounter Qualified Code(s): S91.332A - Puncture wound without foreign body, left foot, initial encounter (3) Non-pressure chronic ulcer of other part of left foot with necrosis of muscle: Status: Acute Reason for Visit Reason for Visit: wound care sent to see in ER Hospital Course Hospital Course Jayy Galeano is a 55 year old male who has 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 Hospital course is notable below: (1) Cellulitis: Diabetic foot infection with purulent cellulitis Status post I&D on October 07, 2020, tolerated procedure well Wound culture with MSSA Currently on ceftriaxone 2 g IV daily, which would be the antibiotic at discharge No current signs of osteomyelitis on imaging, however CRP markedly elevated at 280 and ESR also at 90. We will choose IV antibiotic course at least over the next 4 weeks for a complicated deep-seated infection, thereafter subsequent course would be decided based on follow-up in the infectious disease clinic and clinical course. PICC line placed to facilitate above. He will continue with his to the wound care clinic once a week at which time PICC line dressing can be changed. He declined home health. Weekly labs including CBC CMP and ESR to be taken every week and fax to the infectious disease clinic. These will need to be drawn at the main lab when patient comes for his weekly wound care appointments. (2) Diabetic peripheral neuropathy associated with type 2 diabetes mellitus: on neurontin (3) Diabetes mellitus: Fingersticks maintained during hospital course on insulin sliding scale (5) Nausea and vomiting: Alternating Zofran and Reglan Nausea and vomiting are currently improved (6) Asymptomatic COVID-19 virus infection: Covid PCR incidentally positive on October 06 when taken as part of presurgical screen, repeat ordered at [facility] for confirmation also returned positive. Patient currently has no respiratory signs or symptoms. He is oxygenating well on room air. Chest x-ray was without any infiltrates. This is likely provider service representative of an asymptomatic Covid infection. Likely the patient's persistent nausea and vomiting may be related to acute COVID-19 infection. Recommended to maintain isolation for 10 days from 10/06. He lives with his girlfriend. Instructed to return to the ER in case he develops any fever cough sputum production or shortness of breath as it may indicate development of COVID-19 pneumonia. (7)Acute kidney injury Now resolved, lisinopril has been resumed (8) Hypertension, accelerated with systolic blood pressure up to 200 on October 07 Home regimen is lisinopril 40 mg, atenolol 50 p.o. twice daily added amlodipine 10mg po daily and imdur 30mg po daily with prn hydralazine Discharged today in stable condition, f/up in wound care clinic On october 16 once isolation has been removed. 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 OPERATOR: no focal neuro deficits Discharge Data Data Completed and Pending: Completed Studies During Hospitalization Category Date Time Status CT foot LT wo con * [id number] Urgent Cat Scan 10/02/20 14:22 Completed XR chest 1V [place] ble [id number] Routine Exams 10/07/20 17:23 Completed XR chest 1V [place] [id number] Stat Exams 10/09/20 13:52 Completed XR foot LT min 3V * [id number] Routine Exams 10/06/20 12:32 [place] [address] Routin e Ultrasound 10/03/20 18:10 Completed Labs from last 24 hours 10/10/20 10/10/20 10/10/20 11:18 06:18 05:56 WBC RBC Hgb Hct MCV MCH MCHC RDW Plt Count MPV Neut % (Auto) Lymph % (Auto) Nance % (Auto) Eos % (Auto) Baso % (Auto) Neut # (Auto) Lymph # (Auto) Nance # (Auto) Eos # (Auto) Baso # (Auto) Nucleated RBC % (a uto) Nucleated RBCs # Sodium 140 Potassium 4.0 Chloride 103 Carbon Dioxide 27 Anion Gap 14.0 BUN 11 Creatinine 0.8 GFR Calculation 100.7 Glucose 105 POC Glucose 167 H 125 H Calculated Osmolal ity 290 Calcium 8.7 Total Bilirubin 0.3 AST 32 ALT 44 H Alkaline Phosphata se 81 Total Protein 6.5 L Albumin 3.6 Globulin 2.9 SARS-CoV-2 RNA (RT -PCR) 10/10/20 10/09/20 10/09/20 05:56 20:57 16:59 WBC 9.0 RBC 4.70 Hgb 12.2 Hct 39.9 L MCV 84.9 MCH 26.0 L MCHC 30.6 RDW 14.5 Plt Count 484 H MPV 8.9 Neut % (Auto) 66.0 Lymph % (Auto) 22.7 Nance % (Auto) 6.8 Eos % (Auto) 1.4 Baso % (Auto) 0.9 Neut # (Auto) 5.93 Lymph # (Auto) 2.0 Nance # (Auto) 0.6 Eos # (Auto) 0.1 Baso # (Auto) 0.1 Nucleated RBC % (a uto) 0 Nucleated RBCs # 0.0 Sodium Potassium Chloride Carbon Dioxide Anion Gap BUN Creatinine GFR Calculation Glucose POC Glucose 168 H 187 H Calculated Osmolal ity Calcium Total Bilirubin AST ALT Alkaline Phosphata se Total Protein Albumin Globulin SARS-CoV-2 RNA (RT -PCR) 10/07/20 17:58 WBC RBC Hgb Hct MCV MCH MCHC RDW Plt Count MPV Neut % (Auto) Lymph % (Auto) Nance % (Auto) Eos % (Auto) Baso % (Auto) Neut # (Auto) Lymph # (Auto) Nance # (Auto) Eos # (Auto) Baso # (Auto) Nucleated RBC % (a uto) Nucleated RBCs # Sodium Potassium Chloride Carbon Dioxide Anion Gap BUN Creatinine GFR Calculation Glucose POC Glucose Calculated Osmolal ity Calcium Total Bilirubin AST ALT Alkaline Phosphata se Total Protein Albumin Globulin SARS-CoV-2 RNA (RT -PCR) Detected A Vitals: Last Vital Signs Temp 98.0 F 10/10/20 15:57 Pulse 68 10/10/20 15:57 Resp 18 10/10/20 15:57 BP 171/91 10/10/20 15:57 Pulse Ox 95 10/10/20 15:57 Discharge Plan Discharge Patient Disposition: Home Condition: Stable Prescriptions: New amlodipine 10 mg Tablet 10 mg PO DAILY 30 Days Qty: 30 RF: 0 ceftriaxone 2 gram recon soln 2 g IV DAILY 28 Days Qty: 30 RF: 0 hydralazine 25 mg Tablet 25 mg PO TID PRN (Reason: SBP>170) 15 Days Qty: 45 RF: 0 isosorbide mononitrate 30 mg Tablet Extended Release 24 Hr 30 mg PO DAILY 30 Days Qty: 30 RF: 0 Zofran 4 mg tablet 4 mg PO Q8H PRN (Reason: nausea and vomiting) 7 Days Qty: 20 RF: 0 Continued atenolol 50 mg tablet 50 mg PO BID@08,18 RF: 0 lisinopril 40 mg tablet 40 mg PO DAILY@08 RF: 0 nortriptyline 25 mg capsule 25 mg PO BEDTIME@1999 RF: 0 Tresiba FlexTouch U-100 100 unit/mL (3 mL) insulin pen 160 unit SUBCUT BEDTIME RF: 0 potassium chloride 20 mEq tablet extended release 20 meq PO BID@, RF: 0 furosemide [Lasix] 40 mg tablet 40 mg PO BID@, RF: 0 cholecalciferol (vitamin D3) 125 mcg (5,000 unit) capsule 5,000 unit PO DAILY@0800 RF: 0 metformin 500 mg tablet 500 mg PO BID@,18 RF: 0 gabapentin 300 mg capsule 300 mg PO TID Qty: 90 RF: 0 insulin aspart U-100 [Novolog U-100 Insulin aspart] 100 unit/mL Solution See Rx Instructions .ROUTE .COMPLEX Qty: 0 RF: 0 iron 325 mg (65 mg iron) Tablet 325 mg PO DAILY@08 RF: 0 folic acid 1 mg tablet 1 mg PO DAILY@08 RF: 0 cyanocobalamin (vitamin B-12) 1,000 mcg capsule 1,000 mcg PO DAILY@0800 RF: 0 simvastatin 20 mg Tablet 20 mg PO BEDTIME@1999 RF: 0 Probiotic 3 billion cell Capsule 3,000 mmu cells PO DAILY@0800 RF: 0 Ozempic 0.25 mg or 0.5 mg(2 mg/1.5 mL) Pen Injector 0.25 mg SUBCUT Q7D RF: 0 Changed pantoprazole 40 mg tablet,delayed release (DR/EC) 40 mg PO BID Qty: 0 RF: 0 Discontinued clindamycin HCl 300 mg Capsule 300 mg PO QID RF: 0 Discharge Orders: Discharge Order (Routine); Ordered 10/10/20 Ordered By: Lesly Sevilla Other Ambulatory Orders: Complete Blood Count w/Auto (WEEKLY) Timeframe: 20201017 Facility: [facility] Location: Lab - Main Lab Ordered By: Lesly Michellerirola Complete Blood Count w/Auto (WEEKLY) Timeframe: 20201018 Facility: [facility] Location: Lab - Main Lab Ordered By: Lesly Mtzhuria Complete Blood Count w/Auto (WEEKLY) Timeframe: 20201019 Facility: [facility] Location: Lab - Main Lab Ordered By: Lesly Mtzhuria Complete Blood Count w/Auto (WEEKLY) Timeframe: 20201020 Facility: [facility] Location: Lab - Main Lab Ordered By: Lesly Mtzhuria Comprehensive Metabolic Panel (WEEKLY) Timeframe: 20201017 Facility: [facility] Location: Lab - Main Lab Ordered By: Lesly Mtzhuria Comprehensive Metabolic Panel (WEEKLY) Timeframe: 20201018 Facility: [facility] Location: Lab - Main Lab Ordered By: Lesly Mtzhuria Comprehensive Metabolic Panel (WEEKLY) Timeframe: 20201019 Facility: [facility] Location: Lab - Main Lab Ordered By: Lesly Mtzhuria Comprehensive Metabolic Panel (WEEKLY) Timeframe: 20201020 Facility: [facility] Location: Lab - Main Lab Ordered By: Lesly Michelleria Erythrocyte Sedimentation Rate (WEEKLY) Timeframe: 20201017 Facility: [facility] Location: Lab - Main Lab Ordered By: Lesly Kathuria Erythrocyte Sedimentation Rate (WEEKLY) Timeframe: 20201018 Facility: [facility] Location: Lab - Main Lab Ordered By: Lesly Michelleria Erythrocyte Sedimentation Rate (WEEKLY) Timeframe: 20201019 Facility: [facility] Location: Lab - Main Lab Ordered By: Lesly Mtzhuria Erythrocyte Sedimentation Rate (WEEKLY) Timeframe: 20201020 Facility: [facility] Location: Lab - Main Lab Ordered By: Lesly Sevilla Referrals: [facility] [Other] - 10/23/20 10:30 am (This is a new appointment time, your previous appointment has been changed. ) Lesly Sevilla MD [Hospitalist] - 11/11/20 1:00 pm (Surgery [facility], [address] Ph no: [phone] ) WOUND CARE CLINIC, [Staff Physician] - 04/01/21 Discharge Diet: Cardiac and Diabetic Discharge Activity: Limit activity as instructed and As per PT/OT instructions Patient Instructions: Type 2 Diabetes, Hydralazine (By mouth), Amlodipine (By mouth), Ondansetron (By mouth), Ceftriaxone (Injection), Isosorbide Mononitrate (By mouth), Puncture Wound (DC), Acute Kidney Injury (DC), Acute Nausea and Vomiting (DC) Activity Restrictions/Additional Instructions: Please maintain COVID isolation until October 16, 2020 as instructed. If you develop high fever, cough, shortness of breath, return back to the ER immediately. This may represent worsening COVID-19 pneumonia. Check your blood pressure at home twice a day every day and maintain a chart. Your blood pressure medications have been changed. Lisinopril 40 mg has been continued. Imdur 30 mg and amlodipine 10 mg has been added to your regimen. If blood pressure remains systolic greater than 170 in spite of your routine scheduled medications, take hydralazine 25 mg tablet and recheck blood pressure in an hour. Discharge Attestations Time Spent in Discharge Care*: greater than 30 min Specific Discharge Activities: educating patient, discussing with sample case porter/social workers/dc planners, documenting/other paperwork and evaluating patient/reviewing data Quality Metrics Clinical Quality Measures During this hospital stay, did patient experience: None Coding Level of Care Code Acute Chg FW DC note Diagnoses Diabetic peripheral neuropathy associated with type 2 diabetes mellitus E11.42 Puncture wound of foot, left S91.332A Encounter type: initial encounter Non-pressure chronic ulcer of other part of left foot with necrosis of muscle L97.523
--- NOTE | 2020-10-10 17:04 | PM.MISC ---
Miscellaneous Note Purpose of Documentation: Discharge canceled Note: Patient's discharge was eventually canceled today due to hypertension, systolic blood pressure consistently between 1 90-200 systolic, not currently improved with 30 mg of Imdur and 25 mg of hydralazine. Increase Imdur to 60 mg p.o. daily, hydralazine increased to 25 mg 4 times daily. Monitor with above changes. Likely discharge in the upcoming 24 hours of blood pressure controlled.
[2020-10-10 17:20] LABS: Glucose Point of Care 158 mg/dL (70-110)
[2020-10-10] MEDS: enoxaparin 40 mg/0.4 mL Syringe SUBCUT (17:58)
== END 2020-10-10 20:04 | disposition home or self-care (01) | DRG 579 ==
LOC: ER 13:13 → MEDSURG 17:00
PROVIDERS: Internal Medicine; Podiatrist Foot & Ankle Surgery; Admitting Provider Internal Medicine; Emergency Provider Family Medicine; PCP Nurse Practitioner Family; Visit Provider Student in an Organized Health Care Education/Training Program
PROC: 0KBW0ZZ Excision of Left Foot Muscle, Open Approach (ICD-10-PCS; principal; 2020-10-07 07:00)
DX: L03.116 Cellulitis of left lower limb (principal); U07.1 COVID-19; N17.9 Acute kidney failure, unspecified; S91.332A Puncture wound without foreign body, left foot, initial encounter; W45.0XXA Nail entering through skin, initial encounter; Z89.511 Acquired absence of right leg below knee; I10 Essential (primary) hypertension; D64.9 Anemia, unspecified; E66.01 Morbid (severe) obesity due to excess calories; Z68.39 Body mass index [BMI] 39.0-39.9, adult; G47.33 Obstructive sleep apnea (adult) (pediatric); Z87.891 Personal history of nicotine dependence; E11.65 Type 2 diabetes mellitus with hyperglycemia; E11.42 Type 2 diabetes mellitus with diabetic polyneuropathy; M71.22 Synovial cyst of popliteal space [Baker], left knee; L97.523 Non-pressure chronic ulcer of other part of left foot with necrosis of muscle; Z79.84 Long term (current) use of oral hypoglycemic drugs
CPT/HCPCS: 36415; 36416; 36569; 71045; 73630; 73700; 80048; 80053; 80202; 82962; 83605; 85025; 85651; 86140; 87040; 87070; 87075; 87077; 87186; 87205; 87426; 87635; 93971; 96365; 96366; 96367; 96372; 99285; G0378; J0360; J0696; J1644; J1650; J1815; J2020; J2405; J2543; J2704; J2765; J3370; J3490; J7030

== ENCOUNTER 2020-10-17 17:03 | Outpatient (CLI) | payer OTHER, SELFPAY ==
[2020-10-17 17:11] LABS: Basophils # 0.1 10^3/uL (0.0-0.1); Eosinophils # 0.2 10^3/uL (0.0-0.8); Eosinophils % 1.6 %; Hemoglobin 12.2 g/dL (11.7-16.6); Lymphocytes # 1.6 10^3/uL (0.8-4.8); Lymphocytes % 17.1 %; Mean Corpuscular HGB Conc 30.5 g/dL (30.0-36.0); Mean Corpuscular Hemoglobin 25.7 pg (28.0-34.0); Mean Corpuscular Volume 84.4 fL (80-94); Mean Platelet Volume 10.5 fL (7.4-10.4); Monocytes # 0.9 10^3/uL (0.2-0.9); Monocytes % 9.4 %; Neutrophils # 6.63 10^3/uL (1.8-7.7); Neutrophils % 70.5 %; Nucleated Red Blood Cells % 0 %; Platelet Count 304 10^3/cmm (130-400); Red Blood Count 4.74 10^6/uL (4.1-5.3); Red Cell Distribution Width 14.9 % (12.1-15.1); White Blood Count 9.4 10^3/uL (4.0-10.0)
[2020-10-17 17:21] LABS: Alanine Aminotransferase 27 U/L (0-41); Alkaline Phosphatase 75 IU/L (40-130); Blood Urea Nitrogen 11 mg/dL (6-20); Calcium 9.4 mg/dL (8.5-10.5); Carbon Dioxide 31 mmol/L (22-29); Chloride 93 mmol/L (98-107); Globulin 2.3 g/dL (1.3-4.6); Glomerular Filtration Rate 77.9 mL/min (90-130); Glucose 304 mg/dL (65-115); Osmolality Calculated 291 mOsm/kg (285-295); Sodium 135 mmol/L (136-145); Total Bilirubin 0.4 mg/dL (0.15-1.2); Total Protein 6.3 g/dL (6.6-8.7)
[2020-10-17 17:22] LABS: Anion Gap 15.5 (5-19)
[2020-10-17 17:23] LABS: Aspartate Amino Transferase 19 U/L (0-40); Potassium 4.5 mmol/L (3.5-5.1)
[2020-10-17 18:11] LABS: Erythrocyte Sedimentation Rate 29 mm/hr (0-10)
== END 2020-10-17 17:04 | disposition home or self-care (01) ==
PROVIDERS: PCP Nurse Practitioner Family; Visit Provider Student in an Organized Health Care Education/Training Program
DX: E11.628 Type 2 diabetes mellitus with other skin complications (principal)
CPT/HCPCS: 80053; 85025; 85651

== ENCOUNTER 2020-10-23 16:13 | Outpatient (CLI) | payer OTHER, SELFPAY ==
[2020-10-23 16:29] LABS: Basophils # 0.1 10^3/uL (0.0-0.1); Basophils % 0.8 %; Eosinophils # 0.3 10^3/uL (0.0-0.8); Eosinophils % 3.9 %; Hematocrit 37.7 % (42.0-52.0); Hemoglobin 11.8 g/dL (11.7-16.6); Lymphocytes # 1.8 10^3/uL (0.8-4.8); Mean Corpuscular HGB Conc 31.3 g/dL (30.0-36.0); Mean Corpuscular Hemoglobin 26.1 pg (28.0-34.0); Mean Corpuscular Volume 83.4 fL (80-94); Mean Platelet Volume 9.7 fL (7.4-10.4); Monocytes # 0.9 10^3/uL (0.2-0.9); Monocytes % 12.4 %; Neutrophils # 4.39 10^3/uL (1.8-7.7); Neutrophils % 58.5 %; Nucleated Red Blood Cells % 0 %; Platelet Count 306 10^3/cmm (130-400); Red Blood Count 4.52 10^6/uL (4.1-5.3); White Blood Count 7.5 10^3/uL (4.0-10.0)
[2020-10-23 16:52] LABS: Alanine Aminotransferase 27 U/L (0-41); Alkaline Phosphatase 84 IU/L (40-130); Aspartate Amino Transferase 19 U/L (0-40); Blood Urea Nitrogen 11 mg/dL (6-20); Calcium 8.8 mg/dL (8.5-10.5); Carbon Dioxide 28 mmol/L (22-29); Chloride 93 mmol/L (98-107); Globulin 2.9 g/dL (1.3-4.6); Glomerular Filtration Rate 45.3 mL/min (90-130); Glucose 193 mg/dL (65-115); Osmolality Calculated 283 mOsm/kg (285-295); Sodium 134 mmol/L (136-145); Total Bilirubin 0.4 mg/dL (0.15-1.2); Total Protein 6.9 g/dL (6.6-8.7)
[2020-10-23 16:56] LABS: Anion Gap 17.5 (5-19); Potassium 4.5 mmol/L (3.5-5.1)
[2020-10-23 17:23] LABS: Erythrocyte Sedimentation Rate 47 mm/hr (0-10)
== END 2020-10-23 16:14 | disposition home or self-care (01) ==
LOC: LAB 16:19
PROVIDERS: PCP Nurse Practitioner Family; Visit Provider Student in an Organized Health Care Education/Training Program
DX: E11.628 Type 2 diabetes mellitus with other skin complications (principal)
CPT/HCPCS: 80053; 85025; 85651

== ENCOUNTER 2020-10-30 11:18 | Outpatient (CLI) | payer OTHER, SELFPAY | END 2020-10-30 11:19 | disposition home or self-care (01) | LOC: WOUND 11:19 | PROVIDERS: PCP Nurse Practitioner Family; Visit Provider Nurse Practitioner Family | DX: E11.621 Type 2 diabetes mellitus with foot ulcer (principal); L97.522 Non-pressure chronic ulcer of other part of left foot with fat layer exposed | CPT/HCPCS: 11042; 87070; 87075; 87205 ==

== ENCOUNTER 2020-10-30 13:57 | Outpatient (CLI) | payer OTHER, SELFPAY ==
[2020-10-30 14:47] LABS: Basophils # 0.1 10^3/uL (0.0-0.1); Basophils % 0.6 %; Eosinophils # 0.3 10^3/uL (0.0-0.8); Eosinophils % 3.7 %; Hematocrit 37.2 % (42.0-52.0); Hemoglobin 11.6 g/dL (11.7-16.6); Lymphocytes # 1.5 10^3/uL (0.8-4.8); Lymphocytes % 18.4 %; Mean Corpuscular HGB Conc 31.2 g/dL (30.0-36.0); Mean Corpuscular Hemoglobin 26.1 pg (28.0-34.0); Mean Corpuscular Volume 83.6 fL (80-94); Mean Platelet Volume 9.2 fL (7.4-10.4); Monocytes # 0.7 10^3/uL (0.2-0.9); Monocytes % 9.1 %; Neutrophils % 66.7 %; Nucleated Red Blood Cells % 0 %; Platelet Count 364 10^3/cmm (130-400); Red Blood Count 4.45 10^6/uL (4.1-5.3); Red Cell Distribution Width 14.9 % (12.1-15.1); White Blood Count 8.1 10^3/uL (4.0-10.0)
[2020-10-30 15:03] LABS: Alanine Aminotransferase 24 U/L (0-41); Albumin Level 4.1 g/dL (3.5-5.2); Alkaline Phosphatase 92 IU/L (40-130); Aspartate Amino Transferase 21 U/L (0-40); Blood Urea Nitrogen 10 mg/dL (6-20); Calcium 8.4 mg/dL (8.5-10.5); Carbon Dioxide 27 mmol/L (22-29); Chloride 94 mmol/L (98-107); Globulin 2.6 g/dL (1.3-4.6); Glomerular Filtration Rate 69.8 mL/min (90-130); Glucose 361 mg/dL (65-115); Osmolality Calculated 292 mOsm/kg (285-295); Sodium 134 mmol/L (136-145); Total Bilirubin 0.3 mg/dL (0.15-1.2); Total Protein 6.7 g/dL (6.6-8.7)
[2020-10-30 15:29] LABS: Anion Gap 17.6 (5-19); Potassium 4.6 mmol/L (3.5-5.1)
[2020-10-30 16:14] LABS: Erythrocyte Sedimentation Rate 27 mm/hr (0-10)
== END 2020-10-30 13:58 | disposition home or self-care (01) ==
LOC: LAB 14:00
PROVIDERS: PCP Nurse Practitioner Family; Visit Provider Student in an Organized Health Care Education/Training Program
DX: E11.628 Type 2 diabetes mellitus with other skin complications (principal)
CPT/HCPCS: 80053; 85025; 85651

== ENCOUNTER 2020-11-06 01:26 | Outpatient (RCR) | payer OTHER, SELFPAY ==
[2020-11-06 14:07] LABS: Basophils # 0.1 10^3/uL (0.0-0.1); Basophils % 0.9 %; Eosinophils # 0.2 10^3/uL (0.0-0.8); Eosinophils % 2.4 %; Hematocrit 39.9 % (42.0-52.0); Hemoglobin 12.5 g/dL (11.7-16.6); Lymphocytes # 1.7 10^3/uL (0.8-4.8); Lymphocytes % 21.3 %; Mean Corpuscular HGB Conc 31.3 g/dL (30.0-36.0); Mean Corpuscular Hemoglobin 25.7 pg (28.0-34.0); Mean Corpuscular Volume 82.1 fL (80-94); Mean Platelet Volume 9.3 fL (7.4-10.4); Monocytes # 0.8 10^3/uL (0.2-0.9); Monocytes % 9.7 %; Neutrophils # 5.31 10^3/uL (1.8-7.7); Neutrophils % 64.8 %; Nucleated Red Blood Cells % 0 %; Platelet Count 317 10^3/cmm (130-400); Red Blood Count 4.86 10^6/uL (4.1-5.3); Red Cell Distribution Width 14.9 % (12.1-15.1); White Blood Count 8.2 10^3/uL (4.0-10.0)
[2020-11-06 14:19] LABS: Alanine Aminotransferase 21 U/L (0-41); Albumin Level 4.4 g/dL (3.5-5.2); Alkaline Phosphatase 104 IU/L (40-130); Aspartate Amino Transferase 17 U/L (0-40); Blood Urea Nitrogen 15 mg/dL (6-20); Carbon Dioxide 26 mmol/L (22-29); Chloride 94 mmol/L (98-107); Globulin 2.8 g/dL (1.3-4.6); Glomerular Filtration Rate 48.8 mL/min (90-130); Glucose 323 mg/dL (65-115); Osmolality Calculated 293 mOsm/kg (285-295); Sodium 135 mmol/L (136-145); Total Bilirubin 0.3 mg/dL (0.15-1.2); Total Protein 7.2 g/dL (6.6-8.7)
[2020-11-06 14:21] LABS: Anion Gap 19.3 (5-19); Potassium 4.3 mmol/L (3.5-5.1)
[2020-11-06 15:44] LABS: Erythrocyte Sedimentation Rate 29 mm/hr (0-10)
== END 2020-11-14 23:59 | disposition home or self-care (01) ==
LOC: LAB 01:26
PROVIDERS: PCP Nurse Practitioner Family; Visit Provider Student in an Organized Health Care Education/Training Program
DX: E11.621 Type 2 diabetes mellitus with foot ulcer (principal); L97.526 Non-pressure chronic ulcer of other part of left foot with bone involvement without evidence of necrosis; I10 Essential (primary) hypertension; Z89.511 Acquired absence of right leg below knee; E66.9 Obesity, unspecified; Z68.39 Body mass index [BMI] 39.0-39.9, adult; K21.9 Gastro-esophageal reflux disease without esophagitis
CPT/HCPCS: 11042; 80053; 85025; 85651

== ENCOUNTER 2020-11-06 10:50 | Outpatient (CLI) | payer OTHER, SELFPAY | END 2020-11-06 10:51 | disposition home or self-care (01) | LOC: WOUND 10:51 | PROVIDERS: PCP Nurse Practitioner Family; Visit Provider Nurse Practitioner Family | DX: E11.621 Type 2 diabetes mellitus with foot ulcer (principal); L97.522 Non-pressure chronic ulcer of other part of left foot with fat layer exposed | CPT/HCPCS: 11042 ==

== ENCOUNTER 2020-11-11 14:20 | Outpatient (CLI) | payer OTHER, MEDICAID, SELFPAY ==
--- NOTE | 2020-11-11 14:36 | XRR_ITS ---
PROCEDURE INFORMATION: Exam: XR Left Foot Exam date and time: 11/11/2020 2:36 PM Age: 55 years old Clinical indication: Condition or disease; Prior surgery; Surgery type: RT lower leg; Patient HX: Wound on foot, left foot pain, osteomyelitis 5th digit lateral foot TECHNIQUE: Imaging protocol: XR Left foot. Views: 1 or 2 views. COMPARISON: CR XR foot LT min 3V* [id number] 10/06/2020 12:42 PM FINDINGS: Bones/joints: Bony erosions and decreased bone density is seen in the distal aspect of the 5th metatarsal and in the proximal phalange of the 5th toe. These findings were not seen on prior examination and correspond to osteomyelitis. Soft tissues: Diffuse soft tissue edema is seen near the distal lateral aspect of the foot in the region of the 5th metatarsophalangeal articulation. This finding corresponds to an infectious etiology. Diffuse soft tissue edema is seen in the dorsal aspect of the foot XR/XR foot LT 2V 08925 IMPRESSION: 1. Bone erosions associated with osteomyelitis distal 5th metatarsal and 5th toe. 2. Diffuse soft tissue edema in the anterolateral aspect of the foot consistent with infection. 3. Otherwise negative examination of the foot
== END 2020-11-11 14:21 | disposition home or self-care (01) ==
PROVIDERS: PCP Nurse Practitioner Family; Visit Provider Student in an Organized Health Care Education/Training Program
DX: M86.9 Osteomyelitis, unspecified (principal); M79.672 Pain in left foot; M85.872 Other specified disorders of bone density and structure, left ankle and foot; R60.0 Localized edema
CPT/HCPCS: 73620; 86140; 87070

== ENCOUNTER 2020-11-13 09:48 | Outpatient (CLI) | payer OTHER, MEDICAID, SELFPAY | END 2020-11-13 09:49 | disposition home or self-care (01) | LOC: WOUND 09:49 | PROVIDERS: PCP Nurse Practitioner Family; Visit Provider Nurse Practitioner Family | DX: E11.621 Type 2 diabetes mellitus with foot ulcer (principal); L97.526 Non-pressure chronic ulcer of other part of left foot with bone involvement without evidence of necrosis | CPT/HCPCS: 11042 ==

== ENCOUNTER 2020-11-20 09:42 | Outpatient (CLI) | payer OTHER, MEDICAID, SELFPAY | END 2020-11-20 09:43 | disposition home or self-care (01) | LOC: WOUND 09:42 | PROVIDERS: PCP Nurse Practitioner Family; Visit Provider Nurse Practitioner Family | DX: E11.621 Type 2 diabetes mellitus with foot ulcer (principal); L97.523 Non-pressure chronic ulcer of other part of left foot with necrosis of muscle | CPT/HCPCS: 11042 ==

== ENCOUNTER → 2020-11-21 14:30 | Outpatient (BNVA) | payer OTHER, SELFPAY | PROVIDERS: PCP Nurse Practitioner Family; Visit Provider Podiatrist Foot & Ankle Surgery | DX: Z01.812 Encounter for preprocedural laboratory examination (principal); E11.42 Type 2 diabetes mellitus with diabetic polyneuropathy; Z79.4 Long term (current) use of insulin; I83.009 Varicose veins of unspecified lower extremity with ulcer of unspecified site; L97.909 Non-pressure chronic ulcer of unspecified part of unspecified lower leg with unspecified severity; L08.9 Local infection of the skin and subcutaneous tissue, unspecified; Z20.822 Contact with and (suspected) exposure to COVID-19 | CPT/HCPCS: 73630; 87635 ==

== ENCOUNTER 2020-11-24 06:00 | Outpatient (RCR) | payer OTHER, SELFPAY | END 2020-12-15 23:59 | disposition home or self-care (01) | LOC: SPT 06:00 | PROVIDERS: PCP Nurse Practitioner Family; Referring Provider Podiatrist Foot & Ankle Surgery; Visit Provider Podiatrist Foot & Ankle Surgery | DX: I89.0 Lymphedema, not elsewhere classified (principal) | CPT/HCPCS: 97161 ==

== ENCOUNTER 2020-11-25 10:38 | Day surgery (SDC) | payer OTHER, SELFPAY ==
[2020-11-24 17:39] VITALS: BMI 40.0
[2020-11-25 11:01] VITALS: BP 146/89; PULSE 77; RESP 18; TEMP 36.4; O2SAT 96
[2020-11-25] MEDS: sodium chloride 0.9% 1,000 ML 30 ML IV (11:30)
--- NOTE | 2020-11-25 11:45 | P.HPUD_ITS ---
Surgery/Procedure H&P Update DATE OF PROCEDURE: November 25, 2020 DATE H&P PERFORMED: 11/21/20 H&P UPDATE INFORMATION: I have reviewed H&P completed within last 30 days, I have examined patient prior to procedure, No changes to prior documentation and H&P is in [facility] [place] on date indicated PREOP DIAGNOSIS: Osteomyelitis left foot PLANNED PROCEDURE: Operation Date: 11/25/20 12:00 Proposed Procedures p Amputation Toe/s left partial fifth ray with toe flap (Left) - Uzair Tao DPM
--- NOTE | 2020-11-25 12:06 | ANES.PREANE2 ---
Pre-Anesthetic Assessment Pre-Anesthetic Assessment: Height/Weight: Height 1.8 m Weight 130.181 kg Preop Diagnosis: Osteomyelitis left foot Proposed Procedure: Operation Date: 11/25/20 12:00 Proposed Procedures p Amputation Toe/s left partial fifth ray(Left) - Uzair Tao DPM Familial anesthetic complications: None Was Beta Jamie taken within 24 hours: Yes Was Clonidine taken within 24 hours: N/A Last intake: NPO > 8 hrs Social: Social History: No alcohol and No tobacco Exam: Pre-Anes Outpt Exam: alert, oriented x 3, clear to auscultation bilaterally and regular rate & rhythm Airway: Cervical ROM: WNL MP: 4 Dentition: False CV/HEM: CV/HEM: HTN Metabolic: Metabolic: DM, Hyperlipidemia and Morbid obesity Neuropsych: Neuropsych: Neuropathy Anesthetic Plan: ASA status: 3 Anesthesia: MAC Risk of > 500 ml blood loss (7ml/kg in children): No PFSH Anesthesia PFSH: Medical History Charcot's joint of right foot Diabetes mellitus Hx of osteomyelitis Hypertension Microcytic anemia Morbid obesity with BMI of 40.0-44.9, adult Obstructive sleep apnea Venous ulcer Surgical History H/O foot surgery right foot History of right below knee amputation Hx of cholecystectomy Family History Family/Other Diabetes Hypertension Denies family history of CAD (coronary artery disease) Clotting disorder Dementia Hyperlipidemia Psychiatric illness Chronic kidney disease (CKD) Suicide Anesthesia complication Bleeding disorder Family history of premature coronary artery disease Lung disease Cancer Stroke Social History Smoking and tobacco status: former smoker Alcohol intake: never Current occupational status: employed Data Anesthesia Cardiac Studies: No Data to Display
[2020-11-25] MEDS: lidocaine 1% INJ 20 mL 15 ML INJECTION (13:00)
[2020-11-25 13:15] VITALS: BP 122/70; PULSE 76; RESP 16; TEMP 36.8; O2SAT 95
--- NOTE | 2020-11-25 13:16 | XRR_ITS ---
PROCEDURE INFORMATION: Exam: XR Left Foot Exam date and time: 11/25/2020 1:30 PM Age: 55 years old Clinical indication: Condition or disease; Foot deformities; Other: Necrosis of muscle; Left; Prior surgery; Additional info: Post op TECHNIQUE: Imaging protocol: XR Left foot. Views: 1 or 2 views. COMPARISON: CR XR foot LT min 3V* [id number] 11/21/2020 2:37 PM FINDINGS: Bones/joints: There is amputation of the 5th toe at the level of the proximal shaft of the 5th metatarsal. There is a circumscribed density present which was not present on prior examination in the region of the 5th metatarsal. This finding may have been placed surgically. Soft tissues: . Diffuse soft tissue edema is seen in the dorsal and lateral aspect of the foot stable since prior XR/XR foot LT 2V [id number] IMPRESSION: 1. No acute bone abnormality. 2. Soft tissue edema dorsal and lateral aspect of the foot. 3. Amputation of the 5th toe at the level of the proximal shaft of the 5th metatarsal 4. Circumscribed density seen near the 5th metatarsal likely postoperative implant of a
[2020-11-25 13:20] VITALS: BP 132/76; PULSE 73; RESP 17; O2SAT 96
[2020-11-25 13:24] LABS: Glucose Point of Care 205 mg/dL (70-110)
[2020-11-25 13:25] VITALS: BP 108/87; PULSE 74; RESP 18; TEMP 36.8; O2SAT 93
[2020-11-25 13:37] VITALS: BP 119/84; PULSE 74; RESP 18; TEMP 36.8; O2SAT 94
[2020-11-25 13:57] VITALS: BP 119/84; PULSE 72; RESP 18; TEMP 36.2; O2SAT 94
--- NOTE | 2020-11-25 14:32 | ANE.PACU2 ---
Inpatient post-anesthesia follow up: Airway intact: Yes Vital signs: Temperature 97.1 F Pulse Rate 72 Respiratory Rate 18 Blood Pressure 119/84 Pulse Oximetry 94 Oxygen Delivery Me thod Room Air Oxygen Flow Rate 6 Fraction of Inspir ed Oxygen Hydration adequate: Yes Nausea and vomiting: No Pain level: 2 Mental status: Baseline
--- NOTE | 2020-11-25 16:52 | PM.OP ---
Operative Report Date of procedure: November 25, 2020 Pre-op Diagnosis: Osteomyelitis left foot, chronic nonhealing ulcer left foot. Post-op diagnosis: same Post-op Findings: Devitalized soft tissue and bone left foot Procedure Done: Toe flap left fifth digit with partial fifth ray amputation left foot. Implants: Simplex P with tobramycin, 4-0 nylon, 3-0 nylon. Specimens removed/disposition: Fifth metatarsal head and neck sent to microbiology for Gram stain and culture, left foot. Pathology: Proximal margin at osteotomy site fifth metatarsal sent to pathology. Surgeon: Uzair Tao D.P.M. Substance Abuse Counselor: Rakan Anesthesia: MAC Estimated blood loss: Less than 10 mL Tourniquet time: See intraoperative documentation IV fluids: None Urine output: None Complications: None Findings: Devitalized soft tissue and bone left foot Condition: stable Disposition: PACU Brief History: History Froylan is a 55-year-old diabetic male with peripheral vascular disease has significant edema to the left lower extremity. History of puncture wound and subsequent wound and progression of osteomyelitis to the left foot fifth metatarsal and fifth toe. Has underwent surgical debridement, wound culture, oral and intravenous antibiotic therapies, repeat x-ray shows further progression of osteomyelitis and bony destruction at the base of the proximal phalanx of the left fifth toe as well as at the head of the fifth metatarsal left foot. Clinically continues to have a wound. I recommended partial fifth ray amputation and soft tissue flap closure with left fifth toe and repeat bone culture for continued antibiotic therapy likely oral at this time. Patient is agreeable and wishes to proceed. Risks include pain, bleeding, numbness, persistent infection, progression of osteomyelitis and need for further surgical intervention including debridement, higher levels of amputation and loss of leg. Also risks include altered mechanics and transfer pressure with subsequent transfer lesion of the left foot. Patient is agreeable wishes to proceed. I met with the patient in preop and informed consent is signed by myself and patient. I initialed his left foot. 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 No guarantees written, expressed or implied, patient wishes to proceed. Procedure: Under mild sedation the patient was brought to the operating room and placed on the table in supine position. A timeout was performed. Anesthesia was then administered by the anesthesia service. Local anesthesia injected by myself consisting of 30 cc total one-to-one mixture 1% lidocaine and 0.5% Marcaine plain and a reverse Robbins block fashion. Well-padded pneumatic tourniquet applied to the left ankle. Left lower extremity was then scrubbed, prepped and draped utilizing normal aseptic technique. Left foot was elevated, no Esmarch bandage was utilized for examination. Tourniquet was inflated to 250 mmHg. Attention was directed to the left lateral foot where a full-thickness wound probes to bone was appreciated at the fourth webspace and necrosis of the medial aspect of the left fifth toe. There was viable soft tissue and skin envelope at the lateral aspect of the left fifth toe. A incision was made at the level of the margin of viable tissue excising the medial aspect of the necrotic fifth digit left foot full-thickness down into the webspace which was excised in total of devitalized soft tissue. The distal, intermediate and proximal phalanx were sharply excised out of the fifth digit. Flap was then prepared for rotational closure into the fourth webspace for soft tissue coverage of deficit/wound that had been excised. Skin margins were sharply remodeled and noted to be viable with excellent closure without tension. Incision site was flushed with copious amounts of sterile saline solution. Incision was then closed with 4-0 nylon in simple interrupted technique. Attention was then directed to the dorsal aspect of the left distal forefoot where a linear longitudinal incision was made with a #15 blade this was done full-thickness down to bone. Osteotomy was performed mid diaphysis of the left fifth metatarsal and the distal aspect of the fifth metatarsal was sharply excised and passed from operative field this will be sent to microbiology for Gram stain and culture. A second osteotomy was performed to provide a specimen for pathology for review at the margin. At the level of the proximal margin bone had appropriate density no obvious necrosis appreciated intraoperatively. Incision site was flushed with copious amounts of sterile saline solution. Simplex P with tobramycin antibiotic cement spacer was inserted within the cavernous void where the fifth metatarsal had been excised. Incision site was flushed with copious amounts of sterile saline solution again and closed utilizing 3-0 nylon. The incision site was then dressed with Adaptic, sterile 4 x 4, Kerlix, cast padding and lymphedema wraps. Tourniquet was deflated and a prompt hyperemic response is noted to the distal digits of the left foot. Patient was placed back into his Darco shoe. Patient was transferred to the PACU with vital signs stable and vascular status intact. Following a period of postoperative monitoring he will be discharged home is to remain nonweightbearing to the left foot he may heel touch only for transfers. Is to keep the current dressing clean, dry and intact until this Tuesday at 1045 when he follows up in podiatry clinic for his first dressing change will also have physical therapist there for lymphedema wrap application. Will collaborate back with Dr. Di HOOVER for antibiotic recommendations, hopeful for an oral option.
[2020-11-26 01:20] LABS: Glucose Point of Care 261 mg/dL (70-110)
== END 2020-11-25 14:21 | disposition home or self-care (01) ==
PROVIDERS: PCP Nurse Practitioner Family; Visit Provider Podiatrist Foot & Ankle Surgery
PROC: (CPT 14350; principal; 2020-11-25 12:00)
DX: M86.8X7 Other osteomyelitis, ankle and foot (principal); L97.529 Non-pressure chronic ulcer of other part of left foot with unspecified severity; I10 Essential (primary) hypertension; E78.5 Hyperlipidemia, unspecified; E66.01 Morbid (severe) obesity due to excess calories; Z68.41 Body mass index [BMI] 40.0-44.9, adult; E11.40 Type 2 diabetes mellitus with diabetic neuropathy, unspecified; G47.33 Obstructive sleep apnea (adult) (pediatric); Z87.891 Personal history of nicotine dependence; Z82.49 Family history of ischemic heart disease and other diseases of the circulatory system; Z83.3 Family history of diabetes mellitus
CPT/HCPCS: 14350; 28810; 36416; 73620; 82962; 87070; 87176; 87205; 88304; 96365; J0690; J2250; J2704; J3010; J3490; J7030

== ENCOUNTER 2020-12-17 10:04 | Outpatient (CLI) | payer OTHER, SELFPAY | END 2020-12-17 10:05 | disposition home or self-care (01) | LOC: WOUND 10:05 | PROVIDERS: PCP Nurse Practitioner Family; Visit Provider Thoracic Surgery (Cardiothoracic Vascular Surgery) | DX: L97.522 Non-pressure chronic ulcer of other part of left foot with fat layer exposed (principal) | CPT/HCPCS: 11042 ==

== ENCOUNTER 2020-12-24 10:45 | Outpatient (CLI) | payer OTHER, SELFPAY | END 2020-12-24 10:46 | disposition home or self-care (01) | LOC: WOUND 10:49 | PROVIDERS: PCP Nurse Practitioner Family; Visit Provider Thoracic Surgery (Cardiothoracic Vascular Surgery) | DX: L97.522 Non-pressure chronic ulcer of other part of left foot with fat layer exposed (principal) | CPT/HCPCS: 11042 ==

== ENCOUNTER 2021-01-07 10:47 | Outpatient (CLI) | payer OTHER, SELFPAY | END 2021-01-07 10:48 | disposition home or self-care (01) | LOC: WOUND 10:48 | PROVIDERS: PCP Nurse Practitioner Family; Visit Provider Thoracic Surgery (Cardiothoracic Vascular Surgery) | DX: Z09 Encounter for follow-up examination after completed treatment for conditions other than malignant neoplasm (principal) | CPT/HCPCS: 99212 ==

== ENCOUNTER → 2021-06-25 08:46 | Outpatient (BNVA) | payer MEDICAID, SELFPAY | PROVIDERS: PCP Nurse Practitioner Family; Visit Provider Internal Medicine | DX: E11.42 Type 2 diabetes mellitus with diabetic polyneuropathy (principal); E11.65 Type 2 diabetes mellitus with hyperglycemia; E11.621 Type 2 diabetes mellitus with foot ulcer; Z79.4 Long term (current) use of insulin; Z79.84 Long term (current) use of oral hypoglycemic drugs | CPT/HCPCS: 99214 ==

== ENCOUNTER → 2021-07-06 15:07 | Outpatient (BNVA) | payer MEDICAID, SELFPAY | PROVIDERS: PCP Nurse Practitioner Family; Referring Provider Nurse Practitioner Family; Visit Provider Orthopaedic Surgery | DX: M25.562 Pain in left knee (principal); M17.12 Unilateral primary osteoarthritis, left knee; M23.8X2 Other internal derangements of left knee | CPT/HCPCS: 73560; 73565 ==

== ENCOUNTER → 2021-09-16 10:03 | Outpatient (BNVA) | payer MEDICAID, SELFPAY | PROVIDERS: PCP Nurse Practitioner Family; Visit Provider Internal Medicine | DX: E11.42 Type 2 diabetes mellitus with diabetic polyneuropathy (principal); E11.65 Type 2 diabetes mellitus with hyperglycemia; E11.621 Type 2 diabetes mellitus with foot ulcer; E78.2 Mixed hyperlipidemia; Z79.84 Long term (current) use of oral hypoglycemic drugs; Z79.4 Long term (current) use of insulin; Z87.891 Personal history of nicotine dependence | CPT/HCPCS: 99214 ==

== ENCOUNTER → 2021-12-18 08:50 | Outpatient (BNVA) | payer MEDICAID, SELFPAY | PROVIDERS: PCP Nurse Practitioner Family; Visit Provider Internal Medicine | DX: E11.42 Type 2 diabetes mellitus with diabetic polyneuropathy (principal); E11.65 Type 2 diabetes mellitus with hyperglycemia; E78.2 Mixed hyperlipidemia; Z79.84 Long term (current) use of oral hypoglycemic drugs; Z79.4 Long term (current) use of insulin; Z87.891 Personal history of nicotine dependence | CPT/HCPCS: 99214 ==

== ENCOUNTER → 2022-03-25 07:41 | Outpatient (BNVA) | payer MEDICAID, SELFPAY | PROVIDERS: PCP Nurse Practitioner Family; Visit Provider Internal Medicine | DX: E11.42 Type 2 diabetes mellitus with diabetic polyneuropathy (principal); E11.65 Type 2 diabetes mellitus with hyperglycemia; E78.2 Mixed hyperlipidemia; Z89.511 Acquired absence of right leg below knee; Z79.4 Long term (current) use of insulin; Z79.84 Long term (current) use of oral hypoglycemic drugs; Z87.891 Personal history of nicotine dependence | CPT/HCPCS: 99214 ==

== ENCOUNTER → 2022-06-15 11:04 | Outpatient (BNVA) | payer MEDICARE, MEDICAID, SELFPAY | PROVIDERS: PCP Nurse Practitioner Family; Visit Provider Internal Medicine | DX: E11.42 Type 2 diabetes mellitus with diabetic polyneuropathy (principal); E11.65 Type 2 diabetes mellitus with hyperglycemia; E11.621 Type 2 diabetes mellitus with foot ulcer; E78.2 Mixed hyperlipidemia; Z79.4 Long term (current) use of insulin; Z87.891 Personal history of nicotine dependence | CPT/HCPCS: 99214 ==

== ENCOUNTER → 2022-10-12 10:37 | Outpatient (BNVA) | payer MEDICARE, MEDICAID, SELFPAY | PROVIDERS: PCP Nurse Practitioner Family; Visit Provider Internal Medicine | DX: E11.42 Type 2 diabetes mellitus with diabetic polyneuropathy (principal); E11.65 Type 2 diabetes mellitus with hyperglycemia; E78.2 Mixed hyperlipidemia; Z79.4 Long term (current) use of insulin | CPT/HCPCS: 99214 ==

== ENCOUNTER → 2023-04-05 07:53 | Outpatient (BNVA) | payer MEDICARE, MEDICAID, SELFPAY | PROVIDERS: PCP Nurse Practitioner Family; Visit Provider Internal Medicine | DX: E11.42 Type 2 diabetes mellitus with diabetic polyneuropathy (principal); Z79.4 Long term (current) use of insulin; E11.65 Type 2 diabetes mellitus with hyperglycemia; E78.2 Mixed hyperlipidemia | CPT/HCPCS: 99214 ==

== ENCOUNTER → 2023-05-18 07:29 | Outpatient (BNVA) | payer MEDICARE, MEDICAID, SELFPAY | PROVIDERS: PCP Nurse Practitioner Family; Visit Provider Podiatrist Foot & Ankle Surgery | DX: I87.2 Venous insufficiency (chronic) (peripheral) (principal); E11.42 Type 2 diabetes mellitus with diabetic polyneuropathy; Z89.511 Acquired absence of right leg below knee; L60.3 Nail dystrophy; Z89.432 Acquired absence of left foot; Z79.4 Long term (current) use of insulin | CPT/HCPCS: 99213 ==

== ENCOUNTER → 2023-07-07 10:02 | Outpatient (BNVA) | payer MEDICARE, MEDICAID, SELFPAY | PROVIDERS: PCP Nurse Practitioner Family; Visit Provider Internal Medicine | DX: E11.42 Type 2 diabetes mellitus with diabetic polyneuropathy (principal); Z79.4 Long term (current) use of insulin; E11.65 Type 2 diabetes mellitus with hyperglycemia; E78.2 Mixed hyperlipidemia; Z79.85 Long-term (current) use of injectable non-insulin antidiabetic drugs; Z79.84 Long term (current) use of oral hypoglycemic drugs | CPT/HCPCS: 99214 ==

== ENCOUNTER → 2023-10-06 08:58 | Outpatient (BNVA) | payer MEDICARE, MEDICAID, SELFPAY | PROVIDERS: PCP Nurse Practitioner Family; Visit Provider Podiatrist Foot & Ankle Surgery | DX: L60.0 Ingrowing nail (principal); E11.42 Type 2 diabetes mellitus with diabetic polyneuropathy; Z79.4 Long term (current) use of insulin; E11.65 Type 2 diabetes mellitus with hyperglycemia; E78.2 Mixed hyperlipidemia | CPT/HCPCS: 11750; 99214 ==

== ENCOUNTER → 2023-10-25 14:47 | Outpatient (BNVA) | payer MEDICARE, MEDICAID, SELFPAY | PROVIDERS: PCP Nurse Practitioner Family; Visit Provider Podiatrist Foot & Ankle Surgery | DX: E11.42 Type 2 diabetes mellitus with diabetic polyneuropathy (principal); Z98.890 Other specified postprocedural states; Z79.4 Long term (current) use of insulin | CPT/HCPCS: 99213 ==

== ENCOUNTER → 2023-11-03 09:57 | Outpatient (BNVA) | payer MEDICARE, MEDICAID, SELFPAY | PROVIDERS: PCP Nurse Practitioner Family; Visit Provider Podiatrist Foot & Ankle Surgery | DX: E11.42 Type 2 diabetes mellitus with diabetic polyneuropathy (principal); Z98.890 Other specified postprocedural states; Z79.4 Long term (current) use of insulin | CPT/HCPCS: 99213 ==

== ENCOUNTER → 2023-11-28 09:34 | Outpatient (BNVA) | payer MEDICARE, SELFPAY | PROVIDERS: PCP Nurse Practitioner Family; Visit Provider Podiatrist Foot & Ankle Surgery | DX: E11.42 Type 2 diabetes mellitus with diabetic polyneuropathy (principal); Z98.890 Other specified postprocedural states; Z79.4 Long term (current) use of insulin | CPT/HCPCS: 99213 ==

== ENCOUNTER → 2024-02-08 08:31 | Outpatient (BNVA) | payer MEDICARE, MEDICAID, SELFPAY | PROVIDERS: PCP Nurse Practitioner Family; Visit Provider Internal Medicine | DX: E11.42 Type 2 diabetes mellitus with diabetic polyneuropathy (principal); E11.65 Type 2 diabetes mellitus with hyperglycemia; E78.2 Mixed hyperlipidemia; Z79.4 Long term (current) use of insulin; Z79.85 Long-term (current) use of injectable non-insulin antidiabetic drugs | CPT/HCPCS: 99214 ==

== ENCOUNTER → 2024-06-11 08:54 | Outpatient (BNVA) | payer MEDICARE, MEDICAID, SELFPAY | PROVIDERS: PCP Nurse Practitioner Family; Visit Provider Internal Medicine | DX: E11.42 Type 2 diabetes mellitus with diabetic polyneuropathy (principal); E11.65 Type 2 diabetes mellitus with hyperglycemia; E78.2 Mixed hyperlipidemia; Z79.4 Long term (current) use of insulin | CPT/HCPCS: 99214 ==

== ENCOUNTER → 2024-09-24 09:12 | Outpatient (BNVA) | payer MEDICAID, MEDICARE, SELFPAY | PROVIDERS: PCP Nurse Practitioner Family; Visit Provider Internal Medicine | DX: E11.65 Type 2 diabetes mellitus with hyperglycemia (principal); E78.2 Mixed hyperlipidemia; E11.42 Type 2 diabetes mellitus with diabetic polyneuropathy | CPT/HCPCS: 99214 ==

== ENCOUNTER → 2024-12-24 09:59 | Outpatient (BNVA) | payer MEDICARE, MEDICAID, SELFPAY | PROVIDERS: PCP Nurse Practitioner Family; Visit Provider Internal Medicine | DX: E11.65 Type 2 diabetes mellitus with hyperglycemia (principal); E11.42 Type 2 diabetes mellitus with diabetic polyneuropathy; E78.2 Mixed hyperlipidemia | CPT/HCPCS: 36415; 80053; 80061; 82044; 82947; 83036; 84681; 86337; 86341; 99214 ==

== ENCOUNTER → 2024-12-27 07:00 | Outpatient (BNVA) | payer MEDICARE, MEDICAID, SELFPAY | PROVIDERS: PCP Nurse Practitioner Family; Visit Provider Internal Medicine | DX: E78.2 Mixed hyperlipidemia (principal); E11.65 Type 2 diabetes mellitus with hyperglycemia; E11.42 Type 2 diabetes mellitus with diabetic polyneuropathy | CPT/HCPCS: 82530; 82570 ==

== ENCOUNTER → 2025-03-25 08:55 | Outpatient (BNVA) | payer MEDICARE, MEDICAID, SELFPAY | PROVIDERS: PCP Nurse Practitioner Family; Visit Provider Internal Medicine | DX: E11.42 Type 2 diabetes mellitus with diabetic polyneuropathy (principal); E11.65 Type 2 diabetes mellitus with hyperglycemia; E78.2 Mixed hyperlipidemia; Z79.4 Long term (current) use of insulin | CPT/HCPCS: 99214 ==